=== PATIENT | male | born 1935 | race Caucasian/White ===

== ENCOUNTER → 2016-12-19 | Outpatient (CLI) | payer OTHER | LOC: FIMAGING 10:12 | PROVIDERS: ATTEND Internal Medicine | DX: Z13.820 Encounter for screening for osteoporosis (principal); M85.80 Other specified disorders of bone density and structure, unspecified site ==

== ENCOUNTER 2017-04-16 09:53 | Observation (INO) | payer OTHER ==
[2017-04-16] MEDS ORDERED: ASPIRIN 81 MG CHEWABLE TAB PO ONE (09:55)
--- NOTE | 2017-04-16 10:03 | CPEKG ---
Heart Rate: 80 RR Interval: 750 QRSD Interval: 144 QT Interval: 468 QTC Interval: 540 QRS [place]: -96 T Wave [place]: 65 EKG Severity - ABNORMAL ECG - EKG Impression: v paced Electronically Signed By: Morgan Blas 18-Apr-2017 14:39:11
[2017-04-16 10:12] LABS: PLATELET COUNT 268 10^3/uL (150-400)
--- NOTE | 2017-04-16 10:23 | EDPHY ---
H & P Stated Complaint: R CHEST PAIN Time Seen by Provider: 04/16/17 09:56 HPI/ROS: CHIEF COMPLAINT: Right-sided chest pain HISTORY OF PRESENT ILLNESS: This is an 81-year-old male presents to the emergency department reporting that for the last 2 days he has felt chest congestion with pain in the right side of his chest especially when he moves, coughs, or breathes. He has not had significant infectious symptoms, denies having a fever, runny nose, or cough prior to developing the chest discomfort. Patient denies any lightheadedness or dizziness. Denies left-sided chest discomfort. Denies abdominal pain, vomiting, or indigestion. Denies fever. Patient does have history of atrial fibrillation/ atrial flutter and has a pacemaker in place. Denies a history of coronary artery disease. Denies history of congestive heart failure. Does have hypertension. Patient recently returned from [place], arriving a week ago. He does take Pradaxa. REVIEW OF SYSTEMS: Aside from elements discussed in the HPI, a comprehensive 10-point review of systems was reviewed and is negative. PAST MEDICAL HISTORY: Atrial fibrillation, atrial flutter. Pacemaker placement. Status post cholecystectomy. Hypertension. SOCIAL HISTORY: Nonsmoker. Spent 2 months in [place] and recently returned. VITAL SIGNS Reviewed by me. GENERAL: Well-developed, well-nourished, resting comfortably in no respiratory distress. HEENT: Atraumatic. Eyes: No icterus, no injection. Mouth: moist mucous membranes. No erythema or lesions. Neck: supple with no adenopathy. LUNGS: Diminished breath sounds at the right base. Slight crackles bibasilarly. CARDIAC: Regular rate and rhythm, no rubs, murmurs or gallops. ABDOMEN: Soft, nontender, nondistended, bowel sounds normal. BACK: No CVA tenderness. EXTREMITIES: No trauma. No edema. Range of motion is normal throughout. NEURO: Alert and oriented, grossly nonfocal. SKIN: Warm and dry, no rash. PSYCHIATRIC: Normal mentation, no agitation. - Personal History Current Tetanus Diphtheria and Acellular Pertussis (TDAP): Yes - Medical/Surgical History Hx Asthma: No Hx Chronic Respiratory Disease: No Hx Diabetes: No Hx Cardiac Disease: No Hx Renal Disease: No Hx Cirrhosis: No Hx Alcoholism: No Hx HIV/AIDS: No Hx Splenectomy or Spleen Trauma: No Other PMH: PACEMAKER, FARIHA, A FIB ON BLOOD THINNERS, HTN, HIGH CHOLESTEROL - Social History Smoking Status: Former smoker Constitutional: Initial Vital Signs Temperature (C) 36.2 C 04/16/17 10:02 Heart Rate 80 04/16/17 10:02 Respiratory Rate 21 H 04/16/17 10:02 Blood Pressure 126/74 H 04/16/17 10:02 O2 Sat (%) 95 04/16/17 10:02 O2 Delivery Mode Room Air Allergies/Adverse Reactions: No Known Allergies Allergy (Unverified 10/31/10 16:21) Home Medications: Medication Instructions Recorded Acetamn/Diphenhydramine 500/25 1 each PO HS PRN 04/16/17 [Tylenol PM (*)] Alendronate Sodium [Fosamax 70 MG 70 mg PO WE@0700 04/16/17 (*)] Allopurinol [Allopurinol 300 MG 300 mg PO DAILY 04/16/17 (RX)] Atorvastatin Calcium [Lipitor 20 20 mg PO HS 04/16/17 mg (*)] DULoxetine [Cymbalta 60 MG (*)] 60 mg PO DAILY 04/16/17 Dabigatran Etexilate Mesyl 150 mg PO BID 04/16/17 [Pradaxa 150 MG (*)] Hydrochlorothiazide [HCTZ (*)] 25 mg PO DAILY 04/16/17 Labetalol HCl [Trandate 200 mg (*)] 200 mg PO BID 04/16/17 Sotalol HCl [Sotalol] 120 mg PO BID 04/16/17 Valsartan [Diovan (*)] 160 mg PO BID 04/16/17 Medical Decision Making - Diagnostics EKG Interpretation: 12-LEAD EKG: Please see the full report in [facility]. My interpretation: Ventricularly paced rhythm. Imaging Results: Impression: 1. Suspect low-grade congestive heart failure without pulmonary edema superimposed upon underlying COPD. 2. See above report for additional findings. Dictated By: Jone Ceron MD Imaging: I viewed and interpreted images myself ED Course/Re-evaluation: 81-year-old male presents to the emergency department complaining of right- sided chest discomfort. Breath sounds are diminished on the right. Chest x-ray demonstrates blunting of the costophrenic angles and concern for effusion. Right greater than left. Patient had IV placed and laboratory evaluation ordered. CBC, chemistries, troponin, LFTs, and BNP were all ordered. D-dimer also ordered. Patient has a minimally elevated white blood cell count [id number]. Influenza is negative. Urine is negative for infection. Patient has had no fever in the emergency department and no history of fever. D-dimer is negative. Patient is currently anticoagulated on Pradaxa. BNP is elevated at 3400. Troponin is negative. Plan at this point is to admit the patient to the hospital for further evaluation. I did discuss this patient's case with Radha from Cardiology. Patient had been seen approximately 3 days ago and at that time his pacemaker interrogated. EKG at that time demonstrated atrial paced pattern. While in the emergency department today, patient's EKG demonstrates ventricular pacing. Discussed my concerns with the patient that his chest discomfort may be related to development of congestive heart failure, and the need for further evaluation and testing. He is in agreement with this plan. Differential Diagnosis: After history and physical examination, the differential for chest pain was considered, including but not limited to, myocardial ischemia, acute coronary syndrome, pulmonary embolus, chest wall pain, pleural effusion, bronchitis, and pulmonary infectious causes. Consult/Admit Bed Type: Dr. Casiano, [facility] - Data Points Laboratory Results: Laboratory Results 04/16/17 10:00 04/16/17 10:00 Medications Given: Discontinued Medications Acetaminophen (Tylenol) 650 mg PO Q4HRS PRN PRN Reason: Pain, Mild/Fever, Can Take PO Stop: 10/13/17 13:10 Last Admin: 04/16/17 17:47 Dose: 650 mg Aspirin (Aspirin) 324 mg PO EDNOW ONE Stop: 04/16/17 09:56 Last Admin: 04/16/17 10:15 Dose: 324 mg Atorvastatin Calcium (Lipitor) 20 mg PO HS ELINOR Stop: 10/13/17 20:59 Last Admin: 04/16/17 20:26 Dose: 20 mg Dabigatran (Pradaxa) 150 mg PO BID ELINOR Stop: 10/13/17 20:59 Last Admin: 04/17/17 09:26 Dose: 150 mg Duloxetine HCl (Cymbalta) 60 mg PO DAILY ELINOR Stop: 10/14/17 08:59 Last Admin: 04/17/17 09:26 Dose: 60 mg Sodium Chloride (Ns) 1,000 mls @ 75 mls/hr IV CONT [facility] Stop: 04/17/17 13:14 Last Admin: 04/17/17 09:27 Dose: 1,000 mls Labetalol HCl (Trandate) 200 mg PO BID [facility] Stop: 10/13/17 20:59 Last Admin: 04/17/17 10:13 Dose: Not Given Sotalol HCl (Betapace) 120 mg PO BID [facility] Stop: 10/13/17 20:59 Last Admin: 04/17/17 10:14 Dose: Not Given Departure - Departure Disposition: [facility] Inpatient Acute Clinical Impression: Chest pain Qualifiers: Chest pain type: chest pain on breathing Qualified Code(s): R07.1 - Chest pain on breathing; R07.81 - Pleurodynia Congestive cardiac failure Qualifiers: Heart failure type: unspecified Heart failure chronicity: unspecified Qualified Code(s): I50.9 - Heart failure, unspecified Condition: Fair
[2017-04-16 10:26] LABS: INR 1.75 (0.83-1.16); PROTIME(PATIENT) 20.1 SEC (12.0-15.0)
[2017-04-16] MEDS ORDERED: ONDANSETRON 4 MG/2 ML VIAL IVP PRN (13:11)
[2017-04-16] MEDS ORDERED: ACETAMINOPHEN 325 MG TAB PO PRN (13:11)
[2017-04-16] MEDS ORDERED: ONDANSETRON DISINTEGRATING 4 MG TAB PO PRN (13:11)
--- NOTE | 2017-04-16 14:02 | PDCARCONS ---
Cardiology Consult Reason for Consult: Congestive heart failure Chief Complaint: Chest pain Requesting Physician: Hospital service History of Present Illness: 81-year-old male well known to our service history of chronic atrial fibrillation with a permanent pacemaker history of hypertension history of hyperlipidemia. Patient was seen [address] Pacheco Bell on April 10. He was doing well at that time without cardiovascular symptomatology. 2 days ago he experienced the acute onset of right-sided pleuritic/positional chest pain. The pain continued over 48 hours. It was associated with a cough. He called his primary care office and was advised to go to the emergency department he is admitted for further evaluation. The question was raised about whether this could represent heart failure. On my arrival he continues to have right-sided pleuritic chest pain. He has no significant change in his chronic shortness of breath. He does have a dry cough. He denies PND, orthopnea. He has had no palpitations syncope or near syncope. Patient denies fever at this point. He denies chills. He has had no nausea or vomiting. He denies abdominal pain. History Information - Allergies/Home Medication List Allergies/Adverse Reactions: No Known Allergies Allergy (Unverified 10/31/10 16:21) Home Medications: Acetamn/Diphenhydramine 500/25 [Tylenol PM (*)] 1 each PO HS PRN 04/16/17 [Last Taken 04/14/17] Alendronate Sodium [Fosamax 70 MG (*)] 70 mg PO WE@0700 04/16/17 [Last Taken 09/24] Allopurinol [Allopurinol 300 MG (RX)] 300 mg PO DAILY 04/16/17 [Last Taken 04/16] Atorvastatin Calcium [Lipitor 20 mg (*)] 20 mg PO HS 04/16/17 [Last Taken ] DULoxetine [Cymbalta 60 MG (*)] 60 mg PO DAILY 04/16/17 [Last Taken 04/16/17] Dabigatran Etexilate Mesyl [Pradaxa 150 MG (*)] 150 mg PO BID 04/16/17 [Last Taken 04/16/17] Hydrochlorothiazide [HCTZ (*)] 25 mg PO DAILY 04/16/17 [Last Taken 04/16/17] Labetalol HCl [Trandate 200 mg (*)] 200 mg PO BID 04/16/17 [Last Taken 04/16/17] Sotalol HCl [Sotalol] 120 mg PO BID 04/16/17 [Last Taken 04/16/17] Valsartan [Diovan (*)] 160 mg PO BID 04/16/17 [Last Taken 04/16/17] I have personally reviewed and updated: family history, medical history, social history, surgical history Past Medical History: - Past Medical History atrial fibrillation, hypertension, hyperlipidemia - Surgical History Reports: pacemaker/AICD - Family History Positive for: non-pertinent - Social History Smoking Status: Former smoker Physical Exam Physical Exam: Temp Pulse Resp BP Pulse Ox 36.4 C 80 18 109/59 L 94 04/16/17 12:40 04/16/17 12:40 04/16/17 12:40 04/16/17 12:40 04/16/17 12:40 Constitutional: no apparent distress, not in pain Eyes: PERRL, anicteric sclera Ears, Nose, Mouth, Throat: moist mucous membranes, hearing normal Cardiovascular: regular rate and rhythym, no murmur, rub, or gallop, other ( Pacer in the left subclavian fossa. No erythema or edema.), No JVD Peripheral Pulses: 1+: carotid (R), carotid (L), femoral (R), femoral (L), dorsalis-pedis (R), dorsalis-pedis (L) Respiratory: other (Decreased breath sounds right base with coarse rhonchi.) Gastrointestinal: normoactive bowel sounds, soft, non-tender abdomen, no palpable masses Genitourinary: no bladder fullness Skin: warm, normal color Musculoskeletal: full muscle strength Neurologic: AAOx3, sensation intact bilaterally, No weakness, No facial droop Psychiatric: interacting appropriately, not anxious Lymph, Heme, Immunologic: no cervical LAD, no supraclavicular LAD Lab and Imaging 04/16/17 10:00 04/16/17 10:00 WBC 14.11 10^3/uL (3.80-9.50) H 04/16/17 10:00 RBC 3.89 10^6/uL (4.40-6.38) L 04/16/17 10:00 Hgb 13.5 g/dL (13.7-17.5) L 04/16/17 10:00 Hct 38.8 % (40.0-51.0) L 04/16/17 10:00 MCV 99.7 fL (81.5-99.8) 04/16/17 10:00 MCH 34.7 pg (27.9-34.1) H 04/16/17 10:00 MCHC 34.8 g/dL (32.4-36.7) 04/16/17 10:00 RDW 13.6 % (11.5-15.2) 04/16/17 10:00 Plt Count 268 10^3/uL (150-400) 04/16/17 10:00 MPV 10.6 fL (8.7-11.7) 04/16/17 10:00 Neut % (Auto) 88.0 % (39.3-74.2) H 04/16/17 10:00 Lymph % (Auto) 5.0 % (15.0-45.0) L 04/16/17 10:00 [place] % (Auto) 6.1 % (4.5-13.0) 04/16/17 10:00 Eos % (Auto) 0.3 % (0.6-7.6) L 04/16/17 10:00 Baso % (Auto) 0.1 % (0.3-1.7) L 04/16/17 10:00 Nucleat RBC Rel Count 0.0 % (0.0-0.2) 04/16/17 10:00 Absolute Neuts (auto) 12.42 10^3/uL (1.70-6.50) H 04/16/17 10:00 Absolute Lymphs (auto) 0.70 10^3/uL (1.00-3.00) L 04/16/17 10:00 Absolute Monos (auto) 0.86 10^3/uL (0.30-0.80) H 04/16/17 10:00 Absolute Eos (auto) 0.04 10^3/uL (0.03-0.40) 04/16/17 10:00 Absolute Basos (auto) 0.02 10^3/uL (0.02-0.10) 04/16/17 10:00 Absolute Nucleated RBC 0.00 10^3/uL (0-0.01) 04/16/17 10:00 Immature Gran % 0.5 % (0.0-1.1) 04/16/17 10:00 Immature Gran # 0.07 10^3/uL (0.00-0.10) 04/16/17 10:00 PT 20.1 SEC (12.0-15.0) H 04/16/17 10:00 INR 1.75 (0.83-1.16) H 04/16/17 10:00 D-Dimer 0.42 ug/mLFEU (0.00-0.50) 04/16/17 10:00 Sodium 140 mEq/L (135-145) 04/16/17 10:00 Potassium 3.8 mEq/L (3.3-5.0) 04/16/17 10:00 Chloride 96 mEq/L (97-110) L 04/16/17 10:00 Carbon Dioxide 26 mEq/l (22-31) 04/16/17 10:00 Anion Gap 18 mEq/L (8-16) H 04/16/17 10:00 BUN 22 mg/dL (7-23) 04/16/17 10:00 Creatinine 1.4 mg/dL (0.7-1.3) H 04/16/17 10:00 Estimated GFR 49 04/16/17 10:00 Glucose 196 mg/dL (70-100) H 04/16/17 10:00 Calcium 9.0 mg/dL (8.5-10.4) 04/16/17 10:00 Total Bilirubin 3.7 mg/dL (0.1-1.4) H 04/16/17 10:00 Conjugated Bilirubin 1.0 mg/dL (0.0-0.5) H 04/16/17 10:00 Unconjugated Bilirubin 2.7 mg/dL (0.0-1.1) H 04/16/17 10:00 AST 32 IU/L (17-59) 04/16/17 10:00 ALT 36 IU/L (21-72) 04/16/17 10:00 Alkaline Phosphatase 97 IU/L (38-126) 04/16/17 10:00 Troponin I 0.015 ng/mL (0.000-0.034) 04/16/17 10:00 NT-Pro-B Natriuret Pep 3150 pg/mL (0-450) H 04/16/17 10:00 Total Protein 7.0 g/dL (6.3-8.2) 04/16/17 10:00 Albumin 3.9 g/dL (3.5-5.0) 04/16/17 10:00 Influenza A,B Rapid NEGATIVE FOR FLU (NEGATIVE) 04/16/17 10:38 Visualized and Interpreted Chest x-ray results: Yes Chest X-ray Interpretation: other (Chest x-ray reveals normal cardiac silhouette. Dual-chamber pacemaker in place. Pleural effusion blunting the right costophrenic angle.) EKG Interpretation: Positive for: other (Atrial fibrillation with ventricular pacing.) A/P Assessment: Assessment: 81-year-old male history of atrial fibrillation, well rate controlled. Appropriately anticoagulated, history of hypertension now normotensive, history of hyperlipidemia on medical therapy presenting with 2 days of right pleuritic chest pain associated with a new pleural effusion on the right side and dry cough. There is no evidence of congestive heart failure without PND orthopnea. He had echocardiogram in 2007 which revealed normal LV systolic function without valvular abnormalities. He did have diastolic filling abnormalities at that time. His exam today shows no JVP. Vital signs are stable. I do not think his right-sided pain represents an acute coronary syndrome. His current cardiac medications are stable and I would make no changes. Differential diagnosis for his pleuritic chest pain are quite broad and may represent a pneumonic process especially with his pleural effusion. Await echocardiogram. Plan: Review echocardiogram. Clinical follow-up. Past Medical History PMH: - Personal History Current Tetanus Diphtheria and Acellular Pertussis (TDAP): Yes - Medical/Surgical History Hx Asthma: No Hx Chronic Respiratory Disease: No Hx Cardiac Disease: No Hx Diabetes: No Hx Renal Disease: No Hx Alcoholism: No Hx Cirrhosis: No Hx HIV/AIDS: No Hx Splenectomy or Spleen Trauma: No Other PMH: PACEMAKER, FARIHA, A FIB ON BLOOD THINNERS, HTN, HIGH CHOLESTEROL - Social History Smoking Status: Former smoker Additional Social History: Review of Systems Review of Systems: - Review of Systems Constitutional: denies: chills, fever, malaise EENTM: no symptoms reported Respiratory: cough, shortness of breath, hurts to breath. denies: wheezing Cardiac: denies: edema, irregular heart rate, lightheadedness, palpitations, syncope Gastrointestinal/Abdominal: no symptoms reported Genitourinary: no symptoms Musculoskelatal: no symptoms Skin: no symptoms Neurological: no symptoms Hematologic/Lymphatic: no symptoms reported Immunologic/allergic: no symptoms reported
--- NOTE | 2017-04-16 14:30 | ECHO ---
[email or web address] [address] [address] Main: [phone] Fax: Transthoracic Echocardiogram Name: JUAN OJSE GRIGGS MR#: [id number] Study Date: 04/16/2017 Study Time: 01:58 PM Date of : 1935 Age: 81 year(s) Height: 177.8 cm (70 in.) Weight: 87.09 kg (192 lb.) BSA: 2.05 m2 Gender: Male Examination: Echo Indication: Dyspnea/mild edema/ hx pacer Image Quality: Contrast: Requested by: Whitley Yen BP: 109 mmHg/59 mmHg Heart Rate: Rhythm: Indication: Dyspnea/mild edema/ hx pacer Procedure Staff Career Development Coordinator/Teacher: Mason Rudd TYLER Reading Physician: David Patrick Requesting Provider: Conclusions: No pericardial effusion. Preserved left ventricular systolic function with evidence of ventricular pacing. Ejection fraction 71%. No significant valvular abnormalities by Doppler 2 dimensional study. Right ventricular systolic pressure of 45 mmHg Tissue Doppler does not suggest elevated left ventricular filling pressures. Measurements: Chambers Valvular Assessment AV/MV Valvular Assessment TV/PV Normal Normal Normal Name Value Range Name Value Range Name Value Range Ao Cort[place] (MM): 3.3 cm (2.2 cm-3.7 AV Vmax: 1.43 m/s (1 m/s-1.7 TR Vmax: 3.18 mm/s ( - ) cm) m/s) TR PGmax: 40 mmHg ( - ) IVSd (2D): 1.1 cm (0.6 cm-1.1 AV maxP mmHg ( - ) syst. PAP: 45 mmHg ( - ) cm) LVOT Vmax: 0.80 m/s (0.7 m/s-1.1 PV Vmax: 0.91 m/s (0.6 m/s-0.9 LVDd (2D): 4.0 cm (4.2 cm-5.9 m/s) m/s) cm) MV E Vmax: 0.92 m/s ( - ) PV PGmax: 3 mmHg ( - ) LVDs (2D): 2.4 cm (2.1 cm-4 cm) LVPWd (2D): 1.0 cm (0.6 cm-1 cm) LVEF (2D): 71 (>=54 %) Continued Measurements: Chambers Valvular Assessment AV/MV Valvular Assessment TV/PV Name Value Name Value Name Value LADs Lon.8 cm MV E' Septal: 0.10 m/s CVP (est.): 5 mmHg LA Area: 20.6 cm2 MV E/E' Septal: 8.70 LA Volume: 60 ml MV E/E' Lateral: 5.70 LA Volume Index: 29.3 ml/m2 Patient: JUAN JOSE GRIGGS Study Date: 04/16/2017 Page 1 of 2 01:58 PM Findings: Left Ventricle: Normal size left ventricle. No LV hypertrophy. Normal global systolic LV function. EF is 71 %. Right Ventricle: Normal size right ventricle. There is a pacemaker lead noted in the right ventricle. Left Atrium: The left atrium is normal in size. Right Atrium: The right atrium is normal in size. Mitral Valve: The mitral valve is normal in appearance and function. Trivial mitral valve regurgitation. Aortic Valve: The aortic valve is normal in appearance and function. Tricuspid Valve: The tricuspid valve is normal in appearance and function. Trivial tricuspid valve regurgitation. Pulmonic Valve: The pulmonic valve is normal in appearance and function. Aorta: The aorta is normal. Pericardium: No pericardial effusion. (No Signature Object) Patient: JUAN JOSE GRIGGS Study Date: 04/16/2017 Page 2 of 2 01:58 PM [id number]
--- NOTE | 2017-04-16 15:22 | GHP ---
[f rep st] HISTORY AND PHYSICAL DATE OF ADMISSION: 04/16/2017 CHIEF COMPLAINT: Right-sided chest pain. HISTORY OF PRESENT ILLNESS: A pleasant 81-year-old male with history of atrial fibrillation on AC, hypertension, and hyperlipidemia, followed by Dr. Bell, who is presenting with right-sided chest pain. He said this developed 3 days ago. He describes it as pleuritic in nature and worse with a cough or deep breath. He has had some shortness of breath with walking. Denies any lower extremity edema, pillow orthopnea, or PND. Denies lower extremity or abdominal swelling. He was evaluated by Dr. Bell on April 10, and everything looked well at that time. He traveled to [place] and returned a week ago. Had normal Lexiscan in 2016. REVIEW OF SYSTEMS: I completed a 10-point review of systems; negative except as noted in HPI. PAST MEDICAL HISTORY: Pacemaker, chronic atrial fibrillation, hypertension, hyperlipidemia, BPH, colon polyp. PAST SURGICAL HISTORY: Cholecystectomy, vertebroplasty, pacemaker in 2010, nasal reconstruction, tonsillectomy, and TURP. SOCIAL HISTORY: Lives in [place]. Had smoked a pipe 50 years ago. Drinks 1 glass of wine a week. No illicit's ALLERGIES: None. HOME MEDICATIONS: Labetalol 200 mg twice daily, atorvastatin 20 mg q.h.s., allopurinol 300 mg daily, Tylenol PM, Diovan 160 mg b.i.d., sotalol 120 mg b.i.d., hydrochlorothiazide 25 mg daily, Pradaxa 150 mg b.i.d., Cymbalta 60 mg daily, Fosamax once weekly. PHYSICAL EXAMINATION: VITAL SIGNS: Temperature 36.4, blood pressure 109/59, heart rate in the 80s, respirations 16, and 94% in room air. GENERAL: A well- appearing male sitting up in bed in no acute distress. HEENT: PERRLA. EOMI. Oropharynx clear. CV: Regular rate and rhythm. Do not appreciate a murmur, gallop, or rubs. LUNGS: Clear. No wheezing or crackles. ABDOMEN: Soft, nontender, nondistended. Positive bowel sounds. : No Munoz. MUSCULOSKELETAL: 5/5 upper and lower extremity strength. NEURO: 2 through 12 intact. PSYCH: Alert and oriented x3. LABORATORY DATA: WBCs 14, hemoglobin 13, hematocrit 38, platelets 268. INR is 1.7, PT 28. D-dimer 0.42. Sodium 140, potassium 3.8, chloride 96, anion gap 18 , creatinine is 1.4 (baseline is 1.1), glucose is 196. Conjugated bilirubin 1, unconjugated 2.7, AST is 32, ALT 36. Troponin 0.015. BNP is 3150. Albumin is 3.9. Negative influenza. EKG: Personally reviewed by me. AFib, V-paced. Chest x-ray: Minimal blunting of bilateral costophrenic angles. ASSESSMENT AND PLAN: 1. Right-sided chest pain: Differential includes pulmonary embolus versus acute coronary syndrome versus infection. He denies any infectious symptoms. No overt opacity on CXR and afebrile. D-dimer is negative for thrombosis. Initial troponin and EKG negative for ischemia. Repeat trop and echocardiogram. 2. Dyspnea: Stable in room air. Minimal pleural effusion on x-ray. Does have an elevated BNP. Echocardiogram is pending. 3. Atrial fibrillation: He is on sotalol and Pradaxa. Will continue these. 4. Hypertension: Well controlled on home medications, labetalol. 5. Hyperlipidemia: Continue statins. 6. Acute kidney injury: Creatinine is elevated at 1.4, baseline is 1.1. Will hold hydrochlorothiazide as well as losartan and repeat in the morning. Urine lytes pending. 7. Depression:n duloxetine. 8. Leukocytosis: afebrile. C/o dry cough. Fly negative, but will check full resp panel. Denies other infectious symptoms. 9. Diet: Regular. 10. Deep venous thrombosis prophylaxis: On Pradaxa. DISPOSITION: Patient warrants observation admission given chest pain and dyspnea, warranting further evaluation, repeat laboratories, and telemetry. /[id number]/MODL MTDD
[2017-04-16] MEDS: LABETALOL HCL 200 MG TAB PO SCH (20:26)
[2017-04-16] MEDS: DABIGATRAN ETEXILATE MESYL 150 MG CAP PO SCH (20:26)
[2017-04-16] MEDS: SOTALOL HCL 80 MG TAB PO SCH (20:26)
[2017-04-16] MEDS ORDERED: ATORVASTATIN CALCIUM 20 MG TAB PO SCH (21:00)
[2017-04-17] MEDS ORDERED: NS 1,000 ML IV SCH (08:15)
--- NOTE | 2017-04-17 08:16 | HOSPPROG ---
Hospitalist Progress Note Assessment/Plan: #Dyspnea: -no e/o volume overload though mildly elevated BNP. Echo preserved EF, no valvular abnormalities -mod pulm HTN -negative dimer, resp culture and no e/o PNA -min effusions. No protein on UA. #ELISHA: Cr up to 1.4 (BL 1.0). Urine lytes c/w pre-renal. Hold diuretic, Sartan. Give gentle IVFs #Mild hypotension: improved with gentle fluids. Hold sartan, HCTZ until repeat bmp #Right-chest pain: does not appear cardiac. Worse with positioning, cough. No e/ o infection. Can trial APAP (NSAID would be best, but can't with CKD) -BR elevated; Abd U/S only with hemangioma #Diet: regular #Disp: DC today Subjective: still have right chest pain when rolls over or coughs Objective: Vital Signs Temp Pulse Resp BP Pulse Ox 36.7 C 80 12 105/63 95 04/17/17 07:21 04/17/17 07:21 04/17/17 07:21 04/17/17 07:21 04/17/17 07:21 Microbiology 04/16/17 18:15 Respiratory Panel (PCR) - Final Nasal, Sinus - Swab No Organism Detected Laboratory Results 04/17/17 03:43 04/17/17 03:43 04/16/17 04/17/17 04/18/17 05:59 05:59 05:59 Intake Total 550 Balance 550 PT 20.1 SEC (12.0-15.0) H 04/16/17 10:00 INR 1.75 (0.83-1.16) H 04/16/17 10:00 - Physical Exam Constitutional: no apparent distress Eyes: PERRL Ears, Nose, Mouth, Throat: moist mucous membranes, hearing normal Cardiovascular: regular rate and rhythym, no murmur, rub, or gallop, other (no reproducible chest pain), No edema Respiratory: no respiratory distress Gastrointestinal: normoactive bowel sounds Genitourinary: no bladder fullness Skin: warm Musculoskeletal: full muscle strength Neurologic: AAOx3 Psychiatric: interacting appropriately ICD10 Worksheet Patient Problems: Problems Problem Status Onset Chest pain Acute - ICD10 Problem Qualifiers (1) Chest pain
[2017-04-17] MEDS ORDERED: DULoxetine 60 MG CAP PO SCH (09:00)
[2017-04-17] MEDS: DABIGATRAN ETEXILATE MESYL 150 MG CAP PO SCH (09:26)
[2017-04-17] MEDS: LABETALOL HCL 200 MG TAB PO SCH (10:13)
[2017-04-17] MEDS: SOTALOL HCL 80 MG TAB PO SCH (10:14)
--- NOTE | 2017-04-17 11:56 | ASMTCASEMG ---
Living Arrangements What is your living Answers: With Spouse arrangement? Who do you live with? Type Of Residence What kind of residence do Answers: House you live in? Discharge Plan Comments Coordination Status Comments Notes: Discussed pts case in morning rounds. Pt is a 81 y/o man admitted for right sided chest pain. An EKG has been ordered. No therapies ordered at this time. Pt will most likely d/c independent when medically stable. CM available for changes. Plan: Independent Date Signed: 04/17/2017 11:55 AM Electronically Signed By:BRAD Shi
[2017-04-17 15:52] VITALS: BP 127/68; PULSE 84; RESP 16; TEMP 98.7; O2SAT 94
--- NOTE | 2017-04-17 20:38 | GDS ---
[f rep st] DISCHARGE SUMMARY DISCHARGE DIAGNOSES: 1. Dyspnea. 2. Right-sided chest pain. 3. Acute kidney injury. 4. Mild hypotension. 5. Newly diagnosed moderate pulmonary hypertension. HISTORY OF PRESENT ILLNESS: An 81-year-old male with history of atrial fibrillation on AC, hypertens ion hyperlipidemia, followed by Dr. Bell, presenting with right-sided chest pain. This started 3 days ago, and described it as pleuritic in nature, worse with cough or deep breath. He also hurts w ith rolling over. He has noticed dyspnea with walking. No lower extremity edema, pillow orthopnea, or PND. He was evaluated by Dr. Bell on April 10 for his annual cardiac evaluation, and everyt jim looked well. He had traveled to [place] and returned a week ago. HOSPITAL COURSE BY PROBLEM: 1. Right-sided chest pain: Suspect musculoskeletal. This was not consistent with ACS, and had nega tive troponins and EKG. He was evaluated by Cardiology, who agreed. D-dimer was negative, so low muniz spicion for a PE. He was noted to have hyperbilirubinemia, but ultrasound was reassuring, showing on ly hemangioma. Recommend Tylenol as needed and to follow up further with his PCP. 2. Dyspnea: He had no evidence of volume overload. Echocardiogram showed no valvular abnormalities . It did show moderate pulmonary hypertension. He has been stable on room air. 3. Atrial fibrillation: Rate controlled on sotalol. Continue Pradaxa. 4. Hypotension: Held his valsartan and diuretic, as soft blood pressures and elevated creatinine. This improved with mild hydration. Advised him to restart his labetalol tomorrow. Hold valsartan an d diuretic until he gets a repeat BMP. 5. Hyperlipidemia: Statin. 6. Acute kidney injury: Creatinine elevated at 1.4, baseline is 1.1. Urine lytes were consistent w ith prerenal. I gave him gentle IV fluids with improvement of blood pressure. Want a repeat BMP, as creatinine is still 1.4 today. 7. Depression: Duloxetine. 8. Leukocytosis: Elevated at 14. However, has negative infectious evaluation including a UA and ch est x-ray. He denies any other infectious symptoms. Respiratory panel was negative as well. 9. Hyperbilirubinemia: Again, he should follow up with his PCP for further evaluation. He had a ne gative ultrasound here, except for hemangioma. DISPOSITION: The patient is stable for discharge home. MEDICATIONS: Hold valsartan, hydrochlorothiazide until repeat BMP. Restart labetalol tomorrow. FOLLOWUP: 1. PCP. 2. BMP. /[id number]/MODL
== END 2017-04-17 18:57 | disposition home or self-care (01) ==
LOC: CED 09:53 → CEDHOLD 11:02 → F2W 12:26
PROVIDERS: ADMIT Hospitalist; ATTEND Hospitalist
DX: R06.00 Dyspnea, unspecified (principal); R07.9 Chest pain, unspecified; N17.9 Acute kidney failure, unspecified; I95.9 Hypotension, unspecified; I27.20 Pulmonary hypertension, unspecified; E78.5 Hyperlipidemia, unspecified; Z95.0 Presence of cardiac pacemaker
CPT/HCPCS: 71046; 76705; 93005; 93306; G0378; 80048-PO; 80076-PO; 83880-PO; 84484-PO; 85025-PO; 85378-PO; 85610-PO; 87400-PO

== ENCOUNTER 2017-04-22 12:56 | Inpatient (IN) | payer OTHER ==
--- NOTE | 2017-04-22 13:24 | CPEKG ---
Heart Rate: 84 RR Interval: 714 QRSD Interval: 114 QT Interval: 416 QTC Interval: 492 QRS Mclean: -40 T Wave Mclean: 88 EKG Severity - ABNORMAL ECG - EKG Impression: AFIB/FLUT AND V-PACED COMPLEXES EKG Impression: INCOMPLETE LEFT BUNDLE BRANCH BLOCK Electronically Signed By: Carson Samson 22-Apr-2017 13:41:41
--- NOTE | 2017-04-22 13:26 | EDPHY ---
H & P Stated Complaint: sob, cough Time Seen by Provider: 04/22/17 13:20 HPI/ROS: CHIEF COMPLAINT: Worsening dyspnea HISTORY OF PRESENT ILLNESS: The patient presents to the ED with complaints of worsening dyspnea. He was hospitalized approximately a week ago for shortness of breath and chest pain. During that hospitalization he was evaluated by Cardiology and felt to be experiencing musculoskeletal chest pain. The patient does have a history of atrial fibrillation and is chronically anticoagulated with Coumadin. The patient did have a history of a prior cholecystectomy. He was noted to have a slightly elevated bilirubin during that hospitalization. He did undergo a right upper quadrant ultrasound which demonstrated no significant findings in his post cholecystectomy state. The patient complains of general malaise. He has had a wet occasional cough. He denies any complaints of diarrhea or vomiting. REVIEW OF SYSTEMS: A comprehensive 10 point review of systems is otherwise negative aside from elements mentioned in the history of present illness. Source: Patient Exam Limitations: No limitations - Personal History Current Tetanus/Diphtheria Vaccine: Yes Current Tetanus Diphtheria and Acellular Pertussis (TDAP): Yes - Medical/Surgical History Hx Asthma: No Hx Chronic Respiratory Disease: No Hx Diabetes: No Hx Cardiac Disease: Yes Hx Renal Disease: Yes Hx Cirrhosis: No Hx Alcoholism: No Hx HIV/AIDS: No Hx Splenectomy or Spleen Trauma: No Other PMH: PACEMAKER, FARIHA, A FIB ON BLOOD THINNERS, HTN, HIGH CHOLESTEROL - Social History Smoking Status: Former smoker - Physical Exam Exam: General Appearance: Alert, no acute distress Eyes: Scleral icterus present ENT, Mouth: Mucous membranes moist Respiratory: Rhonchorous breath sounds right lung base Cardiovascular: Regular rate and rhythm Gastrointestinal: Abdomen is soft and nontender, no masses, bowel sounds normal Neurological: A&O, normal motor function, normal sensory exam, normal cranial nerves Skin: Skin appears slightly jaundice Musculoskeletal: Neck is supple nontender Extremities: symmetrical, full range of motion Constitutional: Initial Vital Signs Temperature (C) 37.1 C 04/22/17 13:07 Heart Rate 83 04/22/17 13:07 Respiratory Rate 16 04/22/17 13:07 Blood Pressure 105/72 04/22/17 13:07 O2 Sat (%) 91 L 04/22/17 13:07 O2 Delivery Mode Nasal Cannula O2 (L/minute) 2 Allergies/Adverse Reactions: No Known Allergies Allergy (Unverified 04/22/17 13:05) Home Medications: Medication Instructions Recorded Acetamn/Diphenhydramine 500/25 1 each PO HS PRN 04/16/17 [Tylenol PM (*)] Alendronate Sodium [Fosamax 70 MG 70 mg PO WE@0700 04/16/17 (*)] Allopurinol [Allopurinol 300 MG 300 mg PO DAILY 04/16/17 (RX)] Atorvastatin Calcium [Lipitor 20 20 mg PO HS 04/16/17 mg (*)] DULoxetine [Cymbalta 60 MG (*)] 60 mg PO DAILY 04/16/17 Dabigatran Etexilate Mesyl 150 mg PO BID 04/16/17 [Pradaxa 150 MG (*)] Labetalol HCl [Trandate 200 mg (*)] 200 mg PO BID 04/16/17 Sotalol HCl [Sotalol] 120 mg PO BID 04/16/17 Medical Decision Making - Diagnostics EKG Interpretation: EKG: Complete interpretation has been separately recorded in the [facility] archive. Summary impression: Atrial fibrillation, PVCs, rate 84 Imaging Results: Imaging Impressions Chest X-Ray 04/22/17 13:26 Impression: New large right pleural effusion (with possible loculation at the right apex) and dense basilar consolidation (compressive atelectasis versus lobar pneumonia). ED Course/Re-evaluation: The patient was recently admitted to the hospital for evaluation of right-sided chest pain and dyspnea. At that point time he had a fairly extensive workup. He was seen by Cardiology and the hospitalist service and was felt to be having musculoskeletal chest pain. The patient is currently anticoagulated for chronic atrial fibrillation with Pradaxa. The patient presents with ongoing dyspnea and the development of jaundice. Chest x-ray does demonstrate the development of a new right pleural effusion. Given the patient's elevated liver function test a CT scan of the abdomen pelvis has been ordered. The patient will require admission to the hospital for further evaluation of his condition. Consultation is made with Dr. Carlos Elkins from the hospitalist service. CT scan of the abdomen pelvis does not suggest an obvious source causing obstructive jaundice. The patient will be admitted for a pleurocentesis and further evaluation of his symptoms. I will defer to the hospitalist service for consulting Gastroenterology. Differential Diagnosis: Differential diagnosis considered includes influenza, sepsis, pneumonia, heart failure, biliary obstruction - Data Points Laboratory Results: Laboratory Results 04/22/17 13:13 04/22/17 13:13 04/22/17 04/22/17 13:13 13:13 WBC 12.46 10^3/uL H 10^3/uL (3.80-9.50) RBC 3.15 10^6/uL L 10^6/uL (4.40-6.38) Hgb 10.9 g/dL L g/dL (13.7-17.5) Hct 31.3 % L % (40.0-51.0) MCV 99.4 fL fL (81.5-99.8) MCH 34.6 pg H pg (27.9-34.1) MCHC 34.8 g/dL g/dL (32.4-36.7) RDW 13.7 % % (11.5-15.2) Plt Count 328 10^3/uL 10^3/uL (150-400) MPV 10.2 fL fL (8.7-11.7) Neut % (Auto) 86.7 % H % (39.3-74.2) Lymph % (Auto) 4.2 % L % (15.0-45.0) [place] % (Auto) 7.6 % % (4.5-13.0) Eos % (Auto) 0.7 % % (0.6-7.6) Baso % (Auto) 0.1 % L % (0.3-1.7) Nucleat RBC Rel Count 0.0 % % (0.0-0.2) Absolute Neuts (auto) 10.80 10^3/uL H 10^3/uL (1.70-6.50) Absolute Lymphs (auto) 0.52 10^3/uL L 10^3/uL (1.00-3.00) Absolute Monos (auto) 0.95 10^3/uL H 10^3/uL (0.30-0.80) Absolute Eos (auto) 0.09 10^3/uL 10^3/uL (0.03-0.40) Absolute Basos (auto) 0.01 10^3/uL L 10^3/uL (0.02-0.10) Absolute Nucleated RBC 0.00 10^3/uL 10^3/uL (0-0.01) Immature Gran % 0.7 % % (0.0-1.1) Immature Gran # 0.09 10^3/uL 10^3/uL (0.00-0.10) Sodium 135 mEq/L mEq/L (135-145) Potassium 4.4 mEq/L mEq/L (3.5-5.2) Chloride 98 mEq/L mEq/L (97-110) Carbon Dioxide 27 mEq/l mEq/l (22-31) Anion Gap 10 mEq/L mEq/L (8-16) BUN 24 mg/dL H mg/dL (7-23) Creatinine 1.3 mg/dL mg/dL (0.7-1.3) Estimated GFR 53 Glucose 135 mg/dL H mg/dL (70-100) Calcium 8.8 mg/dL mg/dL (8.5-10.4) Total Bilirubin 5.0 mg/dL H mg/dL (0.1-1.4) Conjugated Bilirubin 3.5 mg/dL H mg/dL (0.0-0.5) Unconjugated Bilirubin 1.5 mg/dL H mg/dL (0.0-1.1) AST 65 IU/L H IU/L (17-59) ALT 80 IU/L H IU/L (21-72) Alkaline Phosphatase 762 IU/L H IU/L (38-126) Troponin I < 0.012 ng/mL ng/mL (0.000-0.034) Total Protein 6.8 g/dL g/dL (6.3-8.2) Albumin 3.6 g/dL g/dL (3.5-5.0) Lipase 116 IU/L IU/L (23-300) Departure - Departure Disposition: [facility] Inpatient Acute Clinical Impression: Pleural effusion, Abnormal liver function test, Dyspnea Condition: Good
[2017-04-22 13:43] LABS: PLATELET COUNT 328 10^3/uL (150-400)
[2017-04-22] MEDS ORDERED: IOPAMIDOL (ISOVUE-300) 100 ML BTL ONE ×2 (14:12→14:14)
[2017-04-22] MEDS ORDERED: ONDANSETRON 4 MG/2 ML VIAL IVP PRN (18:59)
[2017-04-22] MEDS ORDERED: oxyCODONE IR 5 MG TAB PO PRN (18:59)
[2017-04-22] MEDS ORDERED: ONDANSETRON DISINTEGRATING 4 MG TAB PO PRN (18:59)
[2017-04-22] MEDS ORDERED: ACETAMN/DIPHENHYDRAMINE 500/25MG TAB PO PRN (19:08)
--- NOTE | 2017-04-22 19:40 | GHP ---
[f rep st] HISTORY AND PHYSICAL DATE OF ADMISSION: 04/22/2017 CHIEF COMPLAINT: Shortness of breath. HISTORY OF PRESENT ILLNESS: This is an 81-year-old man who was discharged 5 days prior after being w orked up for right-sided chest pain. Thought to be musculoskeletal in origin after Cardiology consul tation. He was discharged home, and felt quite poorly for the past few days. He has had worsening s hortness of breath. He feels as though he needs to cough although he does not really have any signif icant sputum production. He has not had any significant swelling. He denies any abdominal pain. On his last admission, he had elevated LFTs. Had an ultrasound which showed him to be post cholecystec ivette with no other significant findings. He has atrial fibrillation. Has a pacemaker in place. PAST MEDICAL/SURGICAL HISTORY: 1. Atrial fibrillation with a pacemaker. He is anticoagulated on Pradaxa. 2. Hypertension. 3. Hyperlipidemia. 4. BPH. 5. Cholecystectomy. 6. Vertebroplasty. 7. Nasal reconstruction. 8. Tonsillectomy. 9. TURP. MEDICATIONS: Please see medication reconciliation. ALLERGIES: No known drug allergies. FAMILY HISTORY: Reviewed and noncontributory. SOCIAL HISTORY: He drinks a very rare glass of wine. Does not smoke. REVIEW OF SYSTEMS: Ten-point review of systems is conducted and is negative except per HPI. PHYSICAL EXAMINATION: VITAL SIGNS: Blood pressure 126/70, heart rate 80, respiration rate 16, satur ating 97% on room air. Temperature is 37.4. GENERAL: The patient is a pleasant man who is resting comfortably. In no acute distress. HEENT: Shows him to be normocephalic, atraumatic. CARDIOVASCUL AR: Shows him to be irregularly irregular. There are no murmurs, rubs, or gallops. PULMONARY: Renate ws diminished right-sided basilar breath sounds. ABDOMEN: Soft, nontender, nondistended. He has no Monroy sign. SKIN: Shows no rash. : Shows no Munoz. NEUROLOGIC: Shows him to be alert and or iented x3. He is moving all extremities. PSYCHIATRIC: Shows normal mood and affect. LABORATORY DATA: White count is 12.4, 87% neutrophils, hemoglobin is 10.9. Bilirubin is 5.0, conjug ated 3.5. Troponin is negative. Alkaline phosphatase is 762. Urinalysis positive for bilirubin. DATA: 1. Discussed with Dr. Samson. Will admit for further workup. 2. Abdominal CT shows question of mass in the pancreatic head. There is question of an empyema on t he right lung. No biliary obstruction with normal common bile duct. 3. Chest x-ray, which I personally viewed and interpreted, shows right-sided pleural effusion. 4. EKG, which I personally viewed and interpreted, shows intermittently paced rhythm. Underlying rh ythm is atrial fibrillation. IMPRESSION AND PLAN: 1. Right-sided pleural effusion: Will need a thoracentesis. Discussed that he may need a chest tub e though I think trying a thoracentesis first is reasonable. I have not ordered this since he is on Pradaxa, and I do not believe he is decompensating. Thus, I think we should wait until his anticoagu lation is worn off. He will need labs sent including cytology as well as cultures. He does not appe ar toxic, thus I am less concerned that this is an empyema. I will not start him on empiric antibiot ics at this point though I would have a low threshold to do this. He is currently resting comfortabl y on room air. 2. Concern for pancreatic head mass: CT with questionable findings. He has markedly elevated alkal ine phosphatase and elevated bilirubin. He has a pacemaker. Thus, we cannot get an MRI or MRCP of h is abdomen. Would consult GI for question of endoscopic ultrasound with biopsy if there is a pancrea tic head mass. I have not done this as we will need to wait for Pradaxa to wear off before consideri ng this procedure. They will need to be consulted tomorrow. I have ordered a CEA as well as a CA-19 -9. He has a history of multiple colon polyps. He is screened with colonoscopies every 5 years. 3. Atrial fibrillation with pacemaker: Continue his sotalol, labetalol, hold Pradaxa. 4. Hypertension: Hydrochlorothiazide and Diovan were held on his last discharge, I will continue to hold these as he is not significantly hypertensive. 5. Code status: He would like to be full code. We would not want heroic, significant life-prolongi ng measures. 6. Venous thromboembolism risk: He is high risk, we will hold off on pharmacologic prophylaxis unti l after his procedures. /[id number]/MODL
[2017-04-22] MEDS: ATORVASTATIN CALCIUM 20 MG TAB PO SCH (20:13)
[2017-04-22] MEDS: LABETALOL HCL 200 MG TAB PO SCH (20:13)
[2017-04-22] MEDS: SOTALOL HCL 80 MG TAB PO SCH (20:13)
[2017-04-22] MEDS: ALLOPURINOL 300 MG TAB PO SCH (20:13)
[2017-04-23 04:38] LABS: PLATELET COUNT 345 10^3/uL (150-400)
[2017-04-23] MEDS: LABETALOL HCL 200 MG TAB PO SCH ×2 (09:49→20:46)
[2017-04-23] MEDS: SOTALOL HCL 80 MG TAB PO SCH ×2 (09:49→20:45)
[2017-04-23] MEDS: DULoxetine 60 MG CAP PO SCH (09:50)
[2017-04-23] MEDS ORDERED: IOPAMIDOL (ISOVUE-300) 100 ML BTL ONE (10:15)
--- NOTE | 2017-04-23 11:24 | PDMN ---
Medical Necessity Medical necessity: Pt meets IP criteria per MD; est los >2 mn for eval/tx of R- sided pleural effusion & concern for pancreatic head mass; admit for further workup/monitoring, thoracentesis/possible chest tube placement & GI consult; hx AFIB w/pacer on AC & HTN; per H&P & order 04/22/17
[2017-04-23 12:24] LABS: INR 1.71 (0.83-1.16); PROTIME(PATIENT) 20.2 SEC (12.0-15.0)
--- NOTE | 2017-04-23 14:59 | ASMTCMCOM ---
CM Note CM Note Notes: 04/23/2017 Case Management Note Met w/pt and this morning during rounds. Pt admitted for pleural effusions. There are currently no PT or OT evals ordered. There are no further case management d/c needs identified at this time. Case Management d/c poc: anticipating independent with follow up as directed. Case Management to follow on daily rounds. Date Signed: 04/23/2017 02:35 PM Electronically Signed By:Sherron Saenz RN
--- NOTE | 2017-04-23 17:17 | HOSPPROG ---
Hospitalist Progress Note Assessment/Plan: * Loculated pleural effusion - rapidly accumulated over 1 week -thoracentesis in am when off Pradaxa 48 hours -no signs of sepsis - hold off on abx * Pancreatic mass with elevated LFT -d/w Dr. Chowdhury - ERCP/EUS with tomorrow 4:00pm -CEA, Ca 19-9 normal * Afib/PCM -sotalol, labetalol -holding Pradaxa Subjective: No complaints. SOB resolved on O2 Objective: Vital Signs Temp Pulse Resp BP Pulse Ox 36.8 C 80 14 102/60 96 04/23/17 15:50 04/23/17 15:50 04/23/17 15:50 04/23/17 15:50 04/23/17 15:50 Laboratory Results 04/23/17 03:06 04/23/17 03:06 04/22/17 04/23/17 04/24/17 05:59 05:59 05:59 Intake Total 350 Balance 350 PT 20.2 SEC (12.0-15.0) H 04/23/17 12:05 INR 1.71 (0.83-1.16) H 04/23/17 12:05 CT chest - loculated effusion, no mass - Physical Exam Constitutional: no apparent distress, appears nourished, not in pain Cardiovascular: regular rate and rhythym, no murmur, rub, or gallop Respiratory: no respiratory distress, no rales or rhonchi, clear to auscultation , reduced air movement, dullness to percussion Gastrointestinal: normoactive bowel sounds, soft, non-tender abdomen, no palpable masses Skin: no rashes or abrasions, no fluctuance, no induration Neurologic: AAOx3, sensation intact bilaterally Psychiatric: interacting appropriately, not anxious, not encephalopathic, thought process linear ICD10 Worksheet Patient Problems: Problems Problem Status Onset Abnormal liver function test Acute Dyspnea Acute Pleural effusion Acute Chest pain Acute Congestive cardiac failure Acute
[2017-04-23] MEDS: ATORVASTATIN CALCIUM 20 MG TAB PO SCH (20:45)
[2017-04-23] MEDS: ALLOPURINOL 300 MG TAB PO SCH (20:45)
--- NOTE | 2017-04-23 21:15 | GCON ---
[f rep st] CONSULTATION REFERRING PHYSICIAN: Nayeli Can MD CHIEF COMPLAINT: An 81-year-old male with abnormal liver function tests and pancreatic cysts. HISTORY OF PRESENT ILLNESS: I have been asked to see in consultation this 81- year-old gentleman by Dr. Nayeli Can, for evaluation of abnormal liver function tests and abnormal imaging of the pancreas. The patient was admitted to the hospital with right-sided chest pain. He has had some shortness of breath. He has been noted to have abnormal liver function tests. He is status post cholecystectomy. He was found to have a large fluid collection in the right chest, felt to be a loculated right pleural effusion, questionable infectious. On chest CT also had extensive atelectasis in the right lung with near total atelectasis of the right lower lobe. He also had a CT scan of his abdomen that also showed a multi lobulated pleural effusion in the right lung. He had a suspected hemangioma of the central liver. There was no evidence of biliary obstruction. The common bile duct measured 4-5 mm. He did have a small indeterminate lesion in the posterior aspect of the head of the pancreas. Suggests that this may be further evaluated with ERCP and EUS. Laboratory data did reveal abnormal liver function tests with an AST initially of 65 and an ALT of 80. Repeat AST and ALT were normal. His total bilirubin was elevated at 5.0 which was mostly unconjugated. He had an elevated alkaline phosphatase of 762. He had normal lipase. Asked to see patient for further evaluation. PAST MEDICAL HISTORY: Remarkable for atrial fib with pacemaker, he has been on Pradaxa. History of hypertension, hyperlipidemia, BPH, cholecystectomy, vertebroplasty, nasal reconstruction, tonsillectomy and TURP. ALLERGIES: No known drug allergies. FAMILY HISTORY: Negative as it pertains to chief complaint. SOCIAL HISTORY: Drinks rare alcohol. Nonsmoker. MEDICATIONS: Acetaminophen, allopurinol, Lipitor, Cymbalta, labetalol, Zofran, Oxy IR, Betapace. REVIEW OF SYSTEMS: Negative 10 systems other than mentioned in HPI. PHYSICAL EXAM: VITAL SIGNS: 102/60, heart rate of 80, respiratory rate 14, 96 % sat on 2 L, 36.8. GENERAL: A very pleasant gentleman in no acute distress. HEENT: Normocephalic, atraumatic. EOMI. NECK: Supple. No cervical adenopathy. No thyromegaly. LUNGS: Clear with decreased breath sounds right lung. CARDIAC: Normal S1, S2 without murmur. ABDOMEN: Benign, soft, nontender. No hepatosplenomegaly. EXTREMITIES: Without clubbing, cyanosis, edema. SKIN: Warm, dry, intact. NEURO: Nonfocal. PSYCH: Alert, oriented x3 with normal affect. LABORATORY DATA: As above. IMPRESSION: An 81-year-old gentleman with right pleural effusion that is loculated of unclear etiology. The patient also with abnormal liver function tests with elevated alkaline phosphatase, LFT and elevated bilirubin. A cystic lesion at the head of the pancreas. Question malignancy. RECOMMENDATIONS: We will proceed with ERCP and EUS. We will discuss with Dr. Elizabeth to schedule. We will follow with you. /[id number]/MODL MTDD
[2017-04-24 05:39] LABS: PLATELET COUNT 358 10^3/uL (150-400)
[2017-04-24 05:55] LABS: INR 1.44 (0.83-1.16); PROTIME(PATIENT) 17.7 SEC (12.0-15.0)
[2017-04-24] MEDS ORDERED: LIDOCAINE 1% 300 MG/30 ML SDV ONE (07:30)
[2017-04-24] MEDS: LABETALOL HCL 200 MG TAB PO SCH ×2 (10:51→22:00)
[2017-04-24] MEDS: DULoxetine 60 MG CAP PO SCH (10:51)
[2017-04-24] MEDS: SOTALOL HCL 80 MG TAB PO SCH ×2 (10:51→22:00)
[2017-04-24] MEDS ORDERED: GLUCAGON HCL 1 MG VIAL ONE (13:13)
[2017-04-24] MEDS ORDERED: IOTHALAMATE MEG (CONRAY) 50 ML VIAL IV ONE (13:14)
--- NOTE | 2017-04-24 13:47 | SOAPPROG ---
SOAP Progress Note Assessment/Plan: Assessment: Cystic lesion in the head of the pancreas. Elevated liver enzymes with elevated bilirubin. Normal extra and intrahepatic ducts. ERCP and EUS today to evaluate cystic lesion of the pancreas rule out malignancy. Plan: NPO, ERCP and Upper EUS today at 4 pm. 04/24/17 13:44 Subjective: CC: Right pleural effusion, abnormal LFTs Patient without abdominal pain. Objective: Vital Signs Temp Pulse Resp BP Pulse Ox 36.5 C 79 18 117/79 95 04/24/17 10:28 04/24/17 10:28 04/24/17 10:28 04/24/17 10:28 04/24/17 10:28 Microbiology 04/24/17 09:10 Gram Stain - Final Thoracic Fluid - Aspirate Laboratory Results 04/24/17 05:09 04/24/17 05:09 04/23/17 04/24/17 04/25/17 05:59 05:59 05:59 Intake Total 350 550 Balance 350 550 PT 17.7 SEC (12.0-15.0) H 04/24/17 05:09 INR 1.44 (0.83-1.16) H 04/24/17 05:09 Generic Name Dose Route Start Last Admin Trade Name Freq PRN Reason Stop Dose Admin Acetaminophen 650 mg 04/22/17 18:59 Tylenol PO 10/19/17 18:58 Q4HRS PRN Pain, Mild/Fever, Can Take PO Acetaminophen/Diphenhydramine HCl 1 each 04/22/17 19:08 Tylenol Pm PO 10/19/17 19:07 HS PRN Sleep/Insomnia Allopurinol 300 mg 04/22/17 21:00 04/23/17 20:45 Allopurinol PO 10/19/17 20:59 300 mg HS ELINOR Administration Atorvastatin Calcium 20 mg 04/22/17 21:00 04/23/17 20:45 Lipitor PO 10/19/17 20:59 20 mg HS ELINOR Administration Duloxetine HCl 60 mg 04/23/17 09:00 04/24/17 10:51 Cymbalta PO 10/20/17 08:59 Not Given DAILY ELINOR Labetalol HCl 200 mg 04/22/17 21:00 04/24/17 10:51 Trandate PO 10/19/17 20:59 Not Given BID ELINOR Ondansetron HCl 4 mg 04/22/17 18:59 Zofran IVP 10/19/17 18:58 Q4HRS PRN Nausea/Vomiting, Can't Take PO Ondansetron HCl 4 mg 04/22/17 18:59 Zofran Odt PO 10/19/17 18:58 Q4HRS PRN Nausea/Vomiting, Use 1st Oxycodone HCl 5 - 10 mg 04/22/17 18:59 Oxycodone Ir PO 05/02/17 18:58 Q3HRS PRN Pain, Severe Able to Take PO Sotalol HCl 120 mg 04/22/17 21:00 04/24/17 10:51 Betapace PO 10/19/17 20:59 Not Given BID ELINOR Discontinued Medications Generic Name Dose Route Start Last Admin Trade Name Freq PRN Reason Stop Dose Admin Glucagon Confirm 04/24/17 13:13 Glucagon Administered 04/24/17 13:14 Dose 1 mg .ROUTE .STK-MED ONE Iopamidol Confirm 04/22/17 14:12 Isovue-300 Administered 04/22/17 14:13 Dose 100 ml .ROUTE .STK-MED ONE Iopamidol Confirm 04/22/17 14:14 Isovue-300 Administered 04/22/17 14:15 Dose 100 ml .ROUTE .STK-MED ONE Iopamidol Confirm 04/23/17 10:15 Isovue-300 Administered 04/23/17 10:16 Dose 100 ml .ROUTE .STK-MED ONE Iothalamate Meglumine Confirm 04/24/17 13:14 Conray Administered 04/24/17 13:15 Dose 50 ml IV .STK-MED ONE Lidocaine HCl Confirm 04/24/17 07:30 Lidocaine Hcl 1% Administered 04/24/17 07:31 Dose 300 mg .ROUTE .STK-MED ONE Physical Exam - Physical Exam General Appearance: alert, no apparent distress Respiratory: lungs clear, other (decreased BS right lung) Abdomen: normal bowel sounds, non-tender, soft Skin: normal color, warm/dry Neuro/Psych: no motor/sensory deficits, alert, normal mood/affect ICD10 Worksheet Patient Problems: Problems Problem Status Onset Abnormal liver function test Acute Dyspnea Acute Pleural effusion Acute Chest pain Acute Congestive cardiac failure Acute
--- NOTE | 2017-04-24 14:52 | PDANEPAE ---
ANE History of Present Illness EGD, EUS Right pleural effusion ANE Past Medical History - Cardiovascular History Hx Hypertension: Yes Hx Arrhythmias: Yes Hx Chest Pain: No Hx Coronary Artery / Peripheral Vascular Disease: No Hx CHF / Valvular Disease: No Hx Palpitations: No - Pulmonary History Hx COPD: No Hx Asthma/Reactive Airway Disease: No Hx Recent Upper Respiratory Infection: No Hx Oxygen in Use at Home: No Hx Sleep Apnea: No Sleep Apnea Screening Result - Last Documented: Positive - Neurologic History Hx Cerebrovascular Accident: No Hx Seizures: No Hx Dementia: No - Endocrine History Hx Diabetes: No Hypothyroid: No Hyperthyroid: No Obesity: mild - Renal History Hx Renal Disorders: No - Liver History Hx Hepatic Disorders: No - Neurological & Psychiatric Hx Hx Neurological and Psychiatric Disorders: No - Cancer History Hx Cancer: Yes Cancer History Comment: skin Cancer basall Cell - Congenital Disorder History Hx Congenital Disorders: No - GI History Hx Gastrointestinal Disorders: No - Other Health History Other Health History: ischemic optic neuritis, vision loss, catarract, teeth implants, bruises easily - Chronic Pain History Chronic Pain: Yes - Surgical History Prior Surgeries: tonsillectomy, cholecystectomy, exploratory surgery on Nose ANE Review of Systems Review of Systems: - Exercise capacity METS (RN): 3 METS - Pacemaker Pacemaker Cardiac Monitor Technician: [employer] Pacemaker Model: accent dr Date Pacemaker Last Checked: Apr 10, 2017 ANE Patient History - Allergies Allergies/Adverse Reactions: No Known Allergies Allergy (Unverified 04/22/17 13:05) - Home Medications Home Medications: Acetamn/Diphenhydramine 500/25 [Tylenol PM (*)] 1 each PO HS PRN 04/16/17 [Last Taken 04/22/17] Alendronate Sodium [Fosamax 70 MG (*)] 70 mg PO WE@0700 04/16/17 [Last Taken 09/24] Allopurinol [Allopurinol 300 MG (RX)] 300 mg PO HS 04/16/17 [Last Taken 04/21/17 ] Atorvastatin Calcium [Lipitor 20 mg (*)] 20 mg PO HS 04/16/17 [Last Taken ] DULoxetine [Cymbalta 60 MG (*)] 60 mg PO DAILY 04/16/17 [Last Taken 04/22/17] Dabigatran Etexilate Mesyl [Pradaxa 150 MG (*)] 150 mg PO BID 04/16/17 [Last Taken 04/22/17] Labetalol HCl [Trandate 200 mg (*)] 200 mg PO BID 04/16/17 [Last Taken 04/22/17] Sotalol HCl [Sotalol] 120 mg PO BID 04/16/17 [Last Taken 04/22/17] - NPO status NPO Since - Liquids (Date): 04/23/17 NPO Since - Liquids (Time): 21:00 NPO Since - Solids (Date): 04/23/17 NPO Since - Solids (Time): 17:00 - Anes Hx Anes Hx: no prior problems - Smoking Hx Smoking Status: Former smoker Marijuana use: No - Alcohol Use Alcohol Use: Occasionally - Family Anes Hx Family Anes Hx: none Family Hx Anesthesia Complications: none ANE Labs/Vital Signs - Labs Result Diagrams: 04/24/17 05:09 04/24/17 05:09 - Vital Signs Blood Pressure: 117/79 Heart Rate: 79 Respiratory Rate: 18 O2 Sat (%): 95 Height: 175.26 cm Weight: 87.09 kg ANE Physical Exam - Airway Neck exam: decreased ROM Mallampati Score: Class 2 - Pulmonary Pulmonary: no respiratory distress - Cardiovascular Cardiovascular: irregularly irregular - ASA Status ASA Status: III ANE Anesthesia Plan Anesthesia Plan: general endotracheal anesthesia
[2017-04-24] MEDS ORDERED: INDOMETHACIN 50 MG SUPP PR ONE ×2 (14:54→15:00)
[2017-04-24] MEDS ORDERED: levOFLOXACIN 500 MG/DEXTROSE/100 ML BAG IV ONE (14:57)
[2017-04-24] MEDS ORDERED: fentaNYL 100 MCG/2 ML INJ ONE (15:02)
[2017-04-24] MEDS ORDERED: PROPOFOL/EMULSION 500 MG/50 ML BOTTLE IV ONE (15:02)
[2017-04-24] MEDS ORDERED: LIDOCAINE 2% 5 ML SDV ONE (15:03)
[2017-04-24] MEDS ORDERED: ROCURONIUM 50 MG/5 ML VIAL ONE (15:03)
[2017-04-24] MEDS ORDERED: levOFLOXACIN 500 MG/DEXTROSE 100 ML IV ONE (15:15)
[2017-04-24] MEDS ORDERED: ONDANSETRON 4 MG/2 ML VIAL ONE (16:18)
[2017-04-24] MEDS ORDERED: NEOSTIGMINE METHYLSULFATE 3 MG/3 ML SYR ONE (16:23)
[2017-04-24] MEDS ORDERED: GLYCOPYRROLATE 0.2 MG/1 ML VIAL ONE ×3 (16:23→16:25)
--- NOTE | 2017-04-24 16:39 | SOAPPROG ---
SOAP Progress Note Assessment/Plan: Assessment: Plan: 04/24/17 16:37 GI note S/p EUS with FNA/ERCP. No obvious malignancy noted. + Cystic lesion in head of pancreas- 1cm. FNA performed and fluid sent for CEA. In head of pancreas, also had area of hypoechoic parenchyma which may represents multiple small cysts versus other? Serous cystadenoma vs. other? FNA x 1 performed. On ERCP, biliary sphincterotomy performed and debris removed. No significant stone disease or stricture noted. Keep NPO. IVFs. Objective: Vital Signs Temp Pulse Resp BP Pulse Ox 36.5 C 79 18 117/79 95 04/24/17 14:24 04/24/17 14:56 04/24/17 14:56 04/24/17 14:56 04/24/17 14:56 Microbiology 04/24/17 09:10 Gram Stain - Final Thoracic Fluid - Aspirate Laboratory Results 04/24/17 05:09 04/24/17 05:09 04/23/17 04/24/17 04/25/17 05:59 05:59 05:59 Intake Total 350 550 Balance 350 550 PT 17.7 SEC (12.0-15.0) H 04/24/17 05:09 INR 1.44 (0.83-1.16) H 04/24/17 05:09 ICD10 Worksheet Patient Problems: Problems Problem Status Onset Chest pain Acute Congestive cardiac failure Acute Pleural effusion Acute Abnormal liver function test Acute Dyspnea Acute
--- NOTE | 2017-04-24 16:50 | HOSPPROG ---
Hospitalist Progress Note Assessment/Plan: # loculated pleural effusion on the right- etiology unclear Chest x-ray(personally reviewed and interpreted) non layering effusion on right Oxygen saturations 98% on 1.5 L - status post diagnostic tap by a interventional Radiology - suspect we may need to discuss if fusion with surgery # cystic pancreatic lesion- elevation in liver function tests- Alk Phos 792 - Plan for ERCP EUS today for biopsy # Atrial Fibrillation - holding anticoagulation Pradaxa Heart rates controlled in 70's - continue sotalol - continue to monitor # hypertension- controlled continue labetalol # prophylaxis holding Pradaxa secondary to ERCP/EUS # diet NPO # disposition greater than 2 midnights as patient requiring diagnostic workup for loculated effusion and new cystic pancreatic mass I have discussed the case with the RN-continue supportive cares we wait for diagnostic testing today Subjective: no pain Objective: Vital Signs Temp Pulse Resp BP Pulse Ox 36.5 C 79 18 117/79 95 04/24/17 14:24 04/24/17 14:56 04/24/17 14:56 04/24/17 14:56 04/24/17 14:56 Microbiology 04/24/17 09:10 Gram Stain - Final Thoracic Fluid - Aspirate Laboratory Results 04/24/17 05:09 04/24/17 05:09 04/23/17 04/24/17 04/25/17 05:59 05:59 05:59 Intake Total 350 550 Balance 350 550 PT 17.7 SEC (12.0-15.0) H 04/24/17 05:09 INR 1.44 (0.83-1.16) H 04/24/17 05:09 - Physical Exam Constitutional: no apparent distress Eyes: anicteric sclera Ears, Nose, Mouth, Throat: moist mucous membranes Cardiovascular: regular rate and rhythym Respiratory: no respiratory distress, reduced air movement Gastrointestinal: normoactive bowel sounds Genitourinary: no bladder fullness Skin: warm Musculoskeletal: No asymmetric calves Neurologic: AAOx3 Psychiatric: interacting appropriately Lymph, Heme, Immunologic: no cervical LAD ICD10 Worksheet Patient Problems: Problems Problem Status Onset Abnormal liver function test Acute Dyspnea Acute Pleural effusion Acute Chest pain Acute Congestive cardiac failure Acute
[2017-04-24] MEDS ORDERED: ONDANSETRON 4 MG/2 ML VIAL IVP PRN (16:56)
[2017-04-24] MEDS ORDERED: fentaNYL 100 MCG/2 ML INJ IVP PRN (16:56)
[2017-04-24] MEDS ORDERED: NALOXONE HCL 0.4 MG/ML INJ IVP PRN (16:56)
--- NOTE | 2017-04-24 17:14 | GPN ---
[f rep st] PROCEDURE NOTE DATE OF PROCEDURE: 04/24/2017 PROCEDURE: Esophagogastroduodenoscopy with biopsy, endoscopic ultrasound with fine-needle aspiration. INDICATION: The patient is an 81-year-old male, who presents for evaluation of abnormal imaging with pancreatic abnormalities as well as increased liver function tests. He presents for further evaluation. CONSENT: Risks, benefits, and alternatives of the procedure were discussed in great detail with the patient. Risk of infection, bleeding, perforation, sedation, and pancreatitis were discussed. All questions answered and informed was obtained. MEDICATIONS: General anesthesia. Please see Anesthesia record for details. ESTIMATED BLOOD LOSS: Insignificant. ESOPHAGOGASTRODUODENOSCOPY EXAMINATION: An Olympus upper endoscope was inserted into the mouth and advanced to the esophagus. The proximal and mid esophagus was normal in appearance. An irregular Z-line was noted and biopsies were taken. The stomach was entered and closely examined, including retroflexed views of angularis, cardia and fundus. A Hiatal hernia was noted. The mucosa in the antrum of the stomach was erythematous in a patchy distribution, and biopsies were taken. The duodenal bulb and second portion of the duodenum were normal in appearance. ENDOSCOPIC ULTRASOUND EXAMINATION: An Olympus linear echoendoscope was inserted into the mouth and advanced to the second portion of the duodenum. The esophagus, stomach, and duodenum were visualized endosonographically. The pancreas was examined from the uncinate process to the tail where the spleen was seen. In the head of the pancreas, a 1 cm cyst was seen. It did appear to communicate with a side branch of the pancreatic duct. Doppler was used to rule out intervening vessels. One transduodenal pass was made with a [employer] 25-gauge into the lesion. Approximately half a cubic centimeter of fluid was aspirated and will be sent for CEA. In the head of the pancreas, a 8mm area which appeared slightly hypoechoic with several small cysts. . In some views it had an appearance of a serous cystadenoma? Doppler was used to rule out intervening vessels. One transduodenal pass was made with a [employer] 25-gauge into the lesion. Cytology was present. Preliminary report reveals acinar cells as well as possible cyst epithelium. Due to the small size of the lesion, another pass was not made. In the pancreas parenchyma, hyperechoic foci were noted throughout the pancreas. A few dilated side branches were noted in the body. The common bile duct was seen, measured approximately 6 mm. There was a minor amount of sludge in the duct. In the distal duct the CBD was seen merging with the pancreatic duct. No mass lesion was seen. However, the distal CBD was narrowed with a questionable distal stricture. No portal, peripancreatic or perigastric lymph nodes were appreciated. IMPRESSION: 1. No obvious malignancy. 2. Sludge in the bile duct with questionable distal stricture. 3. Gastritis, status post biopsy. 4. Irregular Z-line, status post biopsy. PLAN: 1. Follow up on biopsy results. 2. Follow up on FNA results. 3. Proceed with ERCP. /[id number]/MODL MTDD
--- NOTE | 2017-04-24 18:55 | GCON ---
[f rep st] CONSULTATION DATE OF CONSULTATION: 04/24/2017 CHIEF COMPLAINT: Loculated pleural effusion. HISTORY OF PRESENT ILLNESS: This is an 81-year-old male, admitted to the medical service on the with shortness of breath. Briefly, he was admitted 5 days prior and was worked up for right-sided c hest pain; it was thought to be musculoskeletal in origin after Cardiology consultation had cleared h im. He was subsequently sent home. Was not feeling well for the past few prior days and had worseni ng shortness of breath, and re-presented at that time. At any rate, chest imaging as well as CT showed a fairly large loculated effusion on the right side f or which he underwent thoracentesis earlier today which shows it to be an exudative effusion; however , they were only able to clear 90 cc of thin serosanguineous fluid. The patient also underwent an en doscopy with endoscopic ultrasound for a pancreatic mass earlier today, as well. Briefly, he remains on nasal cannula oxygen. Denies having any chest pain, but the shortness of breath persists. PAST MEDICAL HISTORY: Atrial fibrillation, on Pradaxa. Hypertension. Hyperlipidemia. BPH. PAST SURGICAL HISTORY: Cholecystectomy, vertebroplasty, nasal reconstruction, tonsillectomy and a tr ansurethral prostate resection. CURRENT MEDICATIONS: Include Pradaxa. ALLERGIES: None. FAMILY HISTORY: Noncontributory. SOCIAL HISTORY: Rare drinker. Does not smoke. Lives with his . REVIEW OF SYSTEMS: 10-point review performed. PHYSICAL EXAM: VITAL SIGNS: Temperature 36.5, blood pressure 99/66, heart rate 86, and he is 91% on 2 L. CONSTITUTIONAL: He is a little bit sleepy, but he is otherwise alert and oriented, and appear s comfortable. HEENT: Eyes: Pupils equal, round, and reactive to light. His extraocular movements are intact. Ears, nose, mouth, throat: He has moist mucous membranes. His hearing is normal. CAR DIOVASCULAR: He has an irregularly irregular rhythm without any murmurs. RESPIRATORY: Lung sounds on the right are distant. He is not in respiratory distress. GI: His abdomen is soft, nondistended , nontender. SKIN: Warm, normal color, no rashes. MUSCULOSKELETAL: Full strength, no tenderness. Normal joint range of motion. NEURO: He is alert and oriented. His cranial nerves are intact. No weakness, no numbness. PSYCH: He is interacting appropriately. He is not anxious. LYMPH/HEME/IMM UNOLOGIC: He has no cervical or supraclavicular lymphadenopathy. LABS: Fluid analysis show exudative effusion. White count today is 12 from 11.5. Coags show that h is INR is 1.4. Chemistry show that his LFTs are elevated with an alkaline phosphatase of 790, a T-bi lirubin of 3.5, mostly conjugated at 2.4. IMAGING: Includes a plain film and a CT scan, CT scan from admission and plain film from today, the images of which were personally reviewed. They both show a large loculated effusion on the right wit hout layering, not significant for empyema. ASSESSMENT AND PLAN: An 81-year-old male with loculated large right pleural effusion. After looking at the patient's imaging and listening to his lungs, I think he would benefit from large bore chest tube thoracostomy. I think that the fluid is thin and it is early enough that we can evacuate most o f it with a chest tube. However, if it fails to resolve or completely clear out, he may need a thora scopic examination and decortication, pending expansion after the chest tube placement. I discussed my findings and recommendations with him and his . They would like to proceed. We will proceed when time available for chest tube placement. /[id number]/MODL
--- NOTE | 2017-04-24 21:00 | GPN ---
[f rep st] PROCEDURE NOTE DATE OF PROCEDURE: 04/24/2017 PROCEDURE: Endoscopic retrograde cholangiopancreatography with biliary sphincterotomy, removal of debris. INDICATION: The patient is an 81-year-old male who presents for evaluation of elevated liver function tests as well as an abnormal EUS with sludge seen in the bile duct with possible distal stricture. CONSENT: Risks, benefits, and alternatives of the procedure were discussed in great detail with the patient. Risks of infection, bleeding, perforation, sedation, and pancreatitis were discussed. All questions answered and informed consent was obtained. MEDICATIONS: General anesthesia. Please see Anesthesia report for details. Rectal indomethacin 100 mg x1, Levaquin 500 mg IV x1. ESTIMATED BLOOD LOSS: Insignificant. ENDOSCOPIC RETROGRADE CHOLANGIOPANCREATOGRAPHY: The Olympus duodenoscope was inserted in the mouth and advanced to the second portion of the duodenum. The ampulla was brought into view and was normal in appearance. Using a [employer] sphincterotome and a 0.035 wire, a wire was advanced to the common bile duct using the wire guided technique. No pancreatic manipulation or injection was made. A cholangiogram was performed to confirm position. There was filling of the entire biliary tree with good flow of bile and image quality. I personally interpreted the images in real time. No ductal dilation was noted and no stricture was noted. A 1 cm sphincterotomy was performed and a balloon sweep was made. There was removal of debris. IMPRESSION: 1. ERCP with sphincterotomy and removal of debris. 2. No biliary stricture noted. 3. Suspect that his elevated liver function tests may be medication induced cholestasis/multifactorial/congestive hepatopathy etc. RECOMMENDATIONS: 1. N.p.o. till tomorrow. 2. Continue IV hydration. 3. Monitor LFTs. /[id number]/MODL MTDD
--- NOTE | 2017-04-24 21:50 | GOP ---
[f rep st] OPERATIVE REPORT DATE OF OPERATION: 04/24/2017 SURGEON: Christopher Issa MD HOUSEKEEPER HEAD: None. ANESTHESIA: 1% lidocaine with epinephrine. PREOPERATIVE DIAGNOSIS: Loculated right effusion. POSTOPERATIVE DIAGNOSIS: Loculated right effusion. PROCEDURE PERFORMED: Right chest tube thoracostomy placement. FINDINGS: Successful placement of right 28-Dominican straight chest tube into the right chest. SPECIMENS: None. ESTIMATED BLOOD LOSS: 5 cc. DESCRIPTION OF PROCEDURE: The patient was greeted in the Emergency Department. After discussing the risks, benefits, alternatives with him and his , his successfully signed the consent. A [facility] time-out was then performed and his right chest was prepped and draped in typ ical sterile fashion. I commenced the procedure by making a field block in the anterior axillary natalie e at the approximate 6th intercostal space. I then made an incision here and tunneled 1 rib space hi gher, through which I entered the chest cavity bluntly, through which I placed a 28-Dominican straight c hest tube and had immediate return of chest fluid. This was attached to the skin using an interrupte d silk suture, over which sterile dressing was placed. It was placed to a Pleur-evac and then to wal l suction. The patient tolerated the procedure well with no intraoperative complications. DRAINS: 28-Dominican straight chest tube. /[id number]/MODL
[2017-04-24] MEDS: ALLOPURINOL 300 MG TAB PO SCH (21:59)
[2017-04-24] MEDS: ATORVASTATIN CALCIUM 20 MG TAB PO SCH (21:59)
[2017-04-25] MEDS: SOTALOL HCL 80 MG TAB PO SCH ×2 (08:39→20:28)
[2017-04-25] MEDS: DULoxetine 60 MG CAP PO SCH (08:39)
[2017-04-25] MEDS: LABETALOL HCL 200 MG TAB PO SCH ×2 (08:40→20:28)
--- NOTE | 2017-04-25 12:42 | SOAPPROG ---
SOAP Progress Note Assessment/Plan: Assessment: S/p ERCP and Upper EUS. No biliary obstruction, Sphincterotomy was performed. Aspiration of Cyst in the head the pancreas. Preliminary serous cystadenoma. Cytology pending. Abnormal LFT's, ? intrahepatic cholestasis. ? medications. Plan: Await cytology from pancreatic cyst aspiration Follow LFT's 04/25/17 12:44 Subjective: CC: Pleural effusion, abnormal LFTs and hyperbilirubinemia Objective: Vital Signs Temp Pulse Resp BP Pulse Ox 36.6 C 90 16 106/68 94 04/25/17 11:18 04/25/17 11:18 04/25/17 11:18 04/25/17 11:18 04/25/17 11:18 Microbiology 04/24/17 09:10 Gram Stain - Final Thoracic Fluid - Aspirate Laboratory Results 04/24/17 05:09 04/24/17 05:09 04/24/17 04/25/17 04/26/17 05:59 05:59 05:59 Intake Total 550 1050 Output Total 260 150 Balance 550 790 -150 PT 17.7 SEC (12.0-15.0) H 04/24/17 05:09 INR 1.44 (0.83-1.16) H 04/24/17 05:09 Generic Name Dose Route Start Last Admin Trade Name Beauq PRN Reason Stop Dose Admin Acetaminophen 650 mg 04/22/17 18:59 Tylenol PO 10/19/17 18:58 Q4HRS PRN Pain, Mild/Fever, Can Take PO Acetaminophen/Diphenhydramine HCl 1 each 04/22/17 19:08 Tylenol Pm PO 10/19/17 19:07 HS PRN Sleep/Insomnia Allopurinol 300 mg 04/22/17 21:00 04/24/17 21:59 Allopurinol PO 10/19/17 20:59 300 mg HS ELINOR Administration Atorvastatin Calcium 20 mg 04/22/17 21:00 04/24/17 21:59 Lipitor PO 10/19/17 20:59 20 mg HS ELINOR Administration Duloxetine HCl 60 mg 04/23/17 09:00 04/25/17 08:39 Cymbalta PO 10/20/17 08:59 60 mg DAILY ELINOR Administration Labetalol HCl 200 mg 04/22/17 21:00 04/25/17 08:40 Trandate PO 10/19/17 20:59 200 mg BID ELINOR Administration Ondansetron HCl 4 mg 04/22/17 18:59 Zofran IVP 10/19/17 18:58 Q4HRS PRN Nausea/Vomiting, Can't Take PO Ondansetron HCl 4 mg 04/22/17 18:59 Zofran Odt PO 10/19/17 18:58 Q4HRS PRN Nausea/Vomiting, Use 1st Oxycodone HCl 5 - 10 mg 04/22/17 18:59 Oxycodone Ir PO 18 18:58 Q3HRS PRN Pain, Severe Able to Take PO Sotalol HCl 120 mg 04/22/17 21:00 04/25/17 08:39 Betapace PO 10/19/17 20:59 120 mg BID ELINOR Administration Discontinued Medications Generic Name Dose Route Start Last Admin Trade Name Freq PRN Reason Stop Dose Admin Fentanyl Confirm 04/24/17 15:02 Sublimaze Administered 04/24/17 15:03 Dose 100 mcg .ROUTE .STK-MED ONE Fentanyl 25 - 100 mcg 04/24/17 16:56 Sublimaze IVP 04/24/17 17:56 Q5M PRN PACU, IMMEDIATE Pain control Glucagon Confirm 04/24/17 13:13 Glucagon Administered 04/24/17 13:14 Dose 1 mg .ROUTE .STK-MED ONE Glycopyrrolate Confirm 04/24/17 16:23 Glycopyrrolate Administered 04/24/17 16:24 Dose 0.2 mg .ROUTE .STK-MED ONE Glycopyrrolate Confirm 04/24/17 16:23 Glycopyrrolate Administered 04/24/17 16:24 Dose 0.2 mg .ROUTE .STK-MED ONE Glycopyrrolate Confirm 04/24/17 16:25 Glycopyrrolate Administered 04/24/17 16:26 Dose 0.2 mg .ROUTE .STK-MED ONE Levofloxacin/Dextrose 100 mls @ 100 mls/hr 04/24/17 15:15 04/24/17 18:39 Levaquin 500 Mg (Premix) IV 04/24/17 16:14 Not Given ONCE ONE Indomethacin Confirm 04/24/17 14:54 Indocin Rectal Administered 04/24/17 14:55 Dose 100 mg [place] .STK-MED ONE Indomethacin 100 mg 04/24/17 15:00 04/24/17 15:30 Indocin Rectal IL 04/24/17 15:01 100 mg ONCE ONE Administration Iopamidol Confirm 04/22/17 14:12 Isovue-300 Administered 04/22/17 14:13 Dose 100 ml .ROUTE .STK-MED ONE Iopamidol Confirm 04/22/17 14:14 Isovue-300 Administered 04/22/17 14:15 Dose 100 ml .ROUTE .STK-MED ONE Iopamidol Confirm 04/23/17 10:15 Isovue-300 Administered 04/23/17 10:16 Dose 100 ml .ROUTE .STK-MED ONE Iothalamate Meglumine Confirm 04/24/17 13:14 Conray Administered 04/24/17 13:15 Dose 50 ml IV .STK-MED ONE Levofloxacin/Dextrose Confirm 04/24/17 14:57 Levaquin 500 Mg (Premix) Administered 04/24/17 14:58 Dose 500 mg IV .STK-MED ONE Lidocaine HCl Confirm 04/24/17 07:30 Lidocaine Hcl 1% Administered 04/24/17 07:31 Dose 300 mg .ROUTE .STK-MED ONE Lidocaine HCl Confirm 04/24/17 15:03 Xylocaine-Mpf 2% Vial Administered 04/24/17 15:04 Dose 5 ml .ROUTE .STK-MED ONE Naloxone HCl 0.1 mg 04/24/17 16:56 Narcan IVP 04/24/17 17:56 Q2M PRN PACU Resp Rate <10/min Neostigmine Methylsulfate Confirm 04/24/17 16:23 Neostigmine Methylsulfate Administered 04/24/17 16:24 Dose 3 mg .ROUTE .STK-MED ONE Ondansetron HCl Confirm 04/24/17 16:18 Zofran Administered 04/24/17 16:19 Dose 4 mg .ROUTE .STK-MED ONE Ondansetron HCl 2 - 4 mg 04/24/17 16:56 Zofran IVP 04/24/17 17:56 Q10M PRN PACU, Nausea/Vomiting Propofol Confirm 04/24/17 15:02 Diprivan 10 Mg/Ml (Premix) Administered 04/24/17 15:03 Dose 500 mg IV .STK-MED ONE Rocuronium [place] Confirm 04/24/17 15:03 Zemuron Administered 04/24/17 15:04 Dose 50 mg .ROUTE .STK-MED ONE Physical Exam - Physical Exam General Appearance: alert, no apparent distress Respiratory: lungs clear, other (decrease bs right lung) Abdomen: normal bowel sounds, non-tender, soft Skin: normal color, warm/dry Neuro/Psych: no motor/sensory deficits, alert, normal mood/affect, oriented x 3 ICD10 Worksheet Patient Problems: Problems Problem Status Onset Abnormal liver function test Acute Dyspnea Acute Pleural effusion Acute Chest pain Acute Congestive cardiac failure Acute
--- NOTE | 2017-04-25 13:04 | SOAPPROG ---
JANET Progress Note Assessment/Plan: Assessment/Plan: -81yo M s/p R CT placement for loculated effusion - doing better today, states that he can subjectively breathe easier - post placement CXR showed some expansion and a lot of residual consolidation - repeat CXR today pending, anticipate it will show improvement as almost 400cc output overnight. - Will cont to follow, if still having issues with expansion would repeat CT Friday vs Friday04/25/17 13:02 Subjective: feels better,feels as though he can breathe easier Objective: Vital Signs Temp Pulse Resp BP Pulse Ox 36.6 C 90 16 106/68 94 04/25/17 11:18 04/25/17 11:18 04/25/17 11:18 04/25/17 11:18 04/25/17 11:18 Microbiology 04/24/17 09:10 Gram Stain - Final Thoracic Fluid - Aspirate Laboratory Results 04/24/17 05:09 04/24/17 05:09 04/24/17 04/25/17 04/26/17 05:59 05:59 05:59 Intake Total 550 1050 Output Total 260 150 Balance 550 790 -150 PT 17.7 SEC (12.0-15.0) H 04/24/17 05:09 INR 1.44 (0.83-1.16) H 04/24/17 05:09 ICD10 Worksheet Patient Problems: Problems Problem Status Onset Abnormal liver function test Acute Dyspnea Acute Pleural effusion Acute Chest pain Acute Congestive cardiac failure Acute
--- NOTE | 2017-04-25 18:47 | HOSPPROG ---
Hospitalist Progress Note Assessment/Plan: # loculated pleural effusion on the right- etiology unclear- plueral fluid c/w exudate- unclear if related to cystc lesion Chest x-ray(personally reviewed and interpreted) improved right sided inflation Oxygen saturations 98% on 1.5 L - status post right thoracostomy tube this am - monitor CT with surgery # cystic pancreatic lesion- elevation in liver function tests- Alk Phos 792- s/ p ERCP EUS with biopsy - pathology pending # Atrial Fibrillation - holding anticoagulation Pradaxa Heart rates controlled in 70's - continue sotalol - continue to monitor # hypertension- controlled continue labetalol # prophylaxis holding Pradaxa secondary to ERCP/EUS- can likely restart over weekend if no additional procedures planned # diet clears # disposition greater than 2 midnights as patient requiring diagnostic workup for loculated effusion and new cystic pancreatic mass I have discussed the case with Dr. Issa - monitoring response to CT Subjective: denies pain Objective: Vital Signs Temp Pulse Resp BP Pulse Ox 36.6 C 71 16 109/62 94 04/25/17 15:38 04/25/17 15:38 04/25/17 15:38 04/25/17 15:38 04/25/17 15:38 Microbiology 04/24/17 09:10 Gram Stain - Final Thoracic Fluid - Aspirate Laboratory Results 04/24/17 05:09 04/24/17 05:09 04/24/17 04/25/17 04/26/17 05:59 05:59 05:59 Intake Total 550 1050 Output Total 260 150 Balance 550 790 -150 PT 17.7 SEC (12.0-15.0) H 04/24/17 05:09 INR 1.44 (0.83-1.16) H 04/24/17 05:09 - Physical Exam Constitutional: no apparent distress Eyes: anicteric sclera Ears, Nose, Mouth, Throat: moist mucous membranes Cardiovascular: regular rate and rhythym Respiratory: no respiratory distress, other (improved bs on right) Gastrointestinal: normoactive bowel sounds Genitourinary: no bladder fullness Skin: warm Musculoskeletal: No asymmetric calves Neurologic: AAOx3 Psychiatric: interacting appropriately Lymph, Heme, Immunologic: no cervical LAD ICD10 Worksheet Patient Problems: Problems Problem Status Onset Abnormal liver function test Acute Dyspnea Acute Pleural effusion Acute Chest pain Acute Congestive cardiac failure Acute
[2017-04-25] MEDS: ALLOPURINOL 300 MG TAB PO SCH (20:27)
[2017-04-25] MEDS: ATORVASTATIN CALCIUM 20 MG TAB PO SCH (20:27)
[2017-04-26] MEDS: SOTALOL HCL 80 MG TAB PO SCH ×2 (08:48→20:28)
--- NOTE | 2017-04-26 10:23 | SOAPPROG ---
[facility] Progress Note Assessment/Plan: Assessment/Plan: -81yo M s/p R CT placement for loculated effusion - continues to improve daily, chest x-ray yesterday shows that the lung is better expanded with small residual effusion, chest tube output over the last 24 hours has been minimal with no air leak. We will plan to place chest tube to water seal. - okay for the patient to get out of bed and ambulate, I also gave him an incentive spirometer which will help with lung consolidation. - plan to reimage tomorrow with a 2 a chest film, but it appears as though the chest tube is working and he is improving. - okay to restart his Pradaxa - discussed with Dr. Yen 04/25/17 13:02 04/26/17 10:21 Subjective: Continues to state that he is breathing better and is coughing up phlegm Objective: Vital Signs Temp Pulse Resp BP Pulse Ox 36.6 C 72 16 120/74 96 04/26/17 07:23 04/26/17 08:48 04/26/17 07:23 04/26/17 08:48 04/26/17 07:23 Microbiology 04/24/17 09:10 Gram Stain - Final Thoracic Fluid - Aspirate Laboratory Results 04/26/17 04:53 04/26/17 04:53 04/25/17 04/26/17 04/27/17 05:59 05:59 05:59 Intake Total 1050 3200 Output Total 260 910 Balance 790 2290 PT 17.7 SEC (12.0-15.0) H 04/24/17 05:09 INR 1.44 (0.83-1.16) H 04/24/17 05:09 ICD10 Worksheet Patient Problems: Problems Problem Status Onset Abnormal liver function test Acute Dyspnea Acute Pleural effusion Acute Chest pain Acute Congestive cardiac failure Acute
[2017-04-26] MEDS: DULoxetine 60 MG CAP PO SCH (11:19)
[2017-04-26] MEDS: LABETALOL HCL 200 MG TAB PO SCH ×2 (11:19→20:26)
--- NOTE | 2017-04-26 15:17 | ASMTCMCOM ---
CM Note CM Note Notes: Spoke w/RN, anticipate pt will dc home w/support of when medically stable. No therapies ordered, CM available for any changes. DC Plan: Independent Date Signed: 04/26/2017 03:17 PM Electronically Signed By:Norma Nelson RN
--- NOTE | 2017-04-26 16:00 | HOSPPROG ---
Hospitalist Progress Note Assessment/Plan: #Loculated pleural effusion: unclear etiology. CT in place for next 1-2 days -unclear etiology. No e/o infection. Query if related to pancreatic lesion?? -screening for connective tissue d/o: HOLLIS, RF, TSH pending #Cystic pancreatic lesion: tumor markers normal, pathology pending -EUS, s/p sphincterotomy #Atrial fibrillation: rate-controlled. Sotalol. Surgery ok with restarting Pradaxa #Elevated LFTs: trending down #Acute hypoxic resp failure: due to effusion. Wean as tolerated #HTN: Labetalol #Deconditioning: walking with RN #DVT ppx: Pradaxa #Disp: warrants inpatient admission for CT tube Subjective: mild pain at CT site. Objective: Vital Signs Temp Pulse Resp BP Pulse Ox 36.8 C 73 16 100/44 L 96 04/26/17 14:58 04/26/17 14:58 04/26/17 14:58 04/26/17 14:58 04/26/17 14:58 Microbiology 04/24/17 09:10 Gram Stain - Final Thoracic Fluid - Aspirate Laboratory Results 04/26/17 04:53 04/26/17 04:53 04/25/17 04/26/17 04/27/17 05:59 05:59 05:59 Intake Total 1050 3200 Output Total 260 910 Balance 790 2290 PT 17.7 SEC (12.0-15.0) H 04/24/17 05:09 INR 1.44 (0.83-1.16) H 04/24/17 05:09 - Physical Exam Constitutional: no apparent distress Eyes: PERRL Ears, Nose, Mouth, Throat: moist mucous membranes Cardiovascular: regular rate and rhythym, No edema Respiratory: no respiratory distress, other (right-sided CT in place with sanginous fluid. ) Genitourinary: no bladder fullness Skin: warm Musculoskeletal: full muscle strength Neurologic: AAOx3, CN II-XII Intact ICD10 Worksheet Patient Problems: Problems Problem Status Onset Abnormal liver function test Acute Dyspnea Acute Pleural effusion Acute Chest pain Acute Congestive cardiac failure Acute
[2017-04-26] MEDS: ALLOPURINOL 300 MG TAB PO SCH (20:26)
[2017-04-26] MEDS: DABIGATRAN ETEXILATE MESYL 150 MG CAP PO SCH (20:28)
[2017-04-26] MEDS: ATORVASTATIN CALCIUM 20 MG TAB PO SCH (20:28)
--- NOTE | 2017-04-27 08:48 | HOSPPROG ---
Hospitalist Progress Note Assessment/Plan: #Loculated pleural effusion: unclear etiology. -CXR (personally reviewed) still with right lung effusion -unclear etiology. No e/o infection; cultures negative -Query if related to pancreatic lesion?? -connective tissue screening: RF and TSH normal. HOLLIS pending -Dr. Issa ordered CT chest; may need IR drain vs. VATs #Cystic pancreatic lesion: tumor markers normal, pathology pending -EUS, s/p sphincterotomy #Atrial fibrillation: rate-controlled. Sotalol. Surgery ok with restarting Pradaxa #Elevated LFTs: trending down #Acute hypoxic resp failure: due to effusion. Wean as tolerated #HTN: Labetalol #Deconditioning: walking with RN #DVT ppx: Pradaxa #Disp: warrants inpatient admission for CT tube, repeat imaging Subjective: coughing up clear sputum. Walk some yesterday Objective: Vital Signs Temp Pulse Resp BP Pulse Ox 36.6 C 72 16 123/73 H 97 04/27/17 07:40 04/27/17 07:40 04/27/17 07:40 04/27/17 07:40 04/27/17 07:40 Microbiology 04/24/17 09:10 Gram Stain - Final Thoracic Fluid - Aspirate Body Fluid Culture - Final Laboratory Results 04/26/17 04:53 04/27/17 04:46 04/26/17 04/27/17 04/28/17 05:59 05:59 05:59 Intake Total 3200 200 Output Total 910 820 Balance 2290 -620 PT 17.7 SEC (12.0-15.0) H 04/24/17 05:09 INR 1.44 (0.83-1.16) H 04/24/17 05:09 - Physical Exam Constitutional: no apparent distress Eyes: PERRL Ears, Nose, Mouth, Throat: moist mucous membranes, hearing normal Cardiovascular: regular rate and rhythym, No edema Respiratory: other (decreased BS right base. Chest tube in place with sanginous drainage) Gastrointestinal: normoactive bowel sounds, soft, non-tender abdomen Genitourinary: no bladder fullness Skin: warm Musculoskeletal: full muscle strength Neurologic: AAOx3, CN II-XII Intact Psychiatric: interacting appropriately ICD10 Worksheet Patient Problems: Problems Problem Status Onset Abnormal liver function test Acute Dyspnea Acute Pleural effusion Acute Chest pain Acute Congestive cardiac failure Acute
[2017-04-27] MEDS: DABIGATRAN ETEXILATE MESYL 150 MG CAP PO SCH ×2 (09:34→20:49)
[2017-04-27] MEDS: LABETALOL HCL 200 MG TAB PO SCH ×2 (09:35→20:50)
[2017-04-27] MEDS: SOTALOL HCL 80 MG TAB PO SCH ×2 (09:36→20:50)
[2017-04-27] MEDS: DULoxetine 60 MG CAP PO SCH (09:36)
[2017-04-27] MEDS: ALLOPURINOL 300 MG TAB PO SCH (20:49)
[2017-04-27] MEDS: ATORVASTATIN CALCIUM 20 MG TAB PO SCH (20:49)
[2017-04-28] MEDS: DULoxetine 60 MG CAP PO SCH (10:09)
[2017-04-28] MEDS: SOTALOL HCL 80 MG TAB PO SCH ×2 (10:09→20:11)
[2017-04-28] MEDS: LABETALOL HCL 200 MG TAB PO SCH ×2 (10:09→20:12)
--- NOTE | 2017-04-28 10:22 | HOSPPROG ---
Hospitalist Progress Note Assessment/Plan: #Loculated pleural effusion: unclear etiology. -Chest tube out today; IR for pigtail catheter -unclear etiology. No e/o infection; cultures negative -Query if related to pancreatic lesion?? -connective tissue screening: RF and TSH normal. HOLLIS pending -Dr. Issa ordered CT chest; may need IR drain vs. VATs #Cystic pancreatic lesion: tumor markers normal, pathology pending -EUS, s/p sphincterotomy #Thyroid nodule -4cm on U/S. Normal TSH. Will need FNA biopsy #Atrial fibrillation: rate-controlled. Sotalol. Pradaxa after procedure #Elevated LFTs: trending down #Acute hypoxic resp failure: due to effusion. Wean as tolerated #HTN: Labetalol #Deconditioning: walking with RN #DVT ppx: Pradaxa #Disp: warrants inpatient admission for CT tube, repeat imaging Subjective: chest tube uncomfortable Objective: Vital Signs Temp Pulse Resp BP Pulse Ox 36.7 C 70 18 145/80 H 97 04/28/17 08:00 04/28/17 10:09 04/28/17 08:00 04/28/17 10:09 04/28/17 08:00 Microbiology 04/24/17 09:10 Gram Stain - Final Thoracic Fluid - Aspirate Body Fluid Culture - Final Laboratory Results 04/28/17 04:57 04/28/17 04:57 04/27/17 04/28/17 04/29/17 05:59 05:59 05:59 Intake Total 200 500 Output Total 820 343 50 Balance -620 157 -50 PT 17.7 SEC (12.0-15.0) H 04/24/17 05:09 INR 1.44 (0.83-1.16) H 04/24/17 05:09 - Physical Exam Constitutional: no apparent distress, other (tired-appearing) Eyes: PERRL Ears, Nose, Mouth, Throat: moist mucous membranes Cardiovascular: regular rate and rhythym, no murmur, rub, or gallop, No edema Respiratory: no respiratory distress, other (decreased BS right mid-lung to base. chest tube in place, site oozing blood) Gastrointestinal: normoactive bowel sounds, soft, non-tender abdomen Genitourinary: no bladder fullness Skin: warm Musculoskeletal: full muscle strength Neurologic: AAOx3, CN II-XII Intact Psychiatric: interacting appropriately ICD10 Worksheet Patient Problems: Problems Problem Status Onset Abnormal liver function test Acute Dyspnea Acute Pleural effusion Acute Chest pain Acute Congestive cardiac failure Acute
--- NOTE | 2017-04-28 11:12 | SOAPPROG ---
SOAP Progress Note Assessment/Plan: Assessment/Plan: -81yo M s/p R CT placement for loculated effusion - CT removed, sentinel hole in subq - IR to place pigtail into residual collection later, pradaxa held - discussed with Lolis 04/25/17 13:02 04/26/17 10:21 04/28/17 11:11 Subjective: no complaints Objective: Vital Signs Temp Pulse Resp BP Pulse Ox 36.7 C 70 18 145/80 H 97 04/28/17 08:00 04/28/17 10:09 04/28/17 08:00 04/28/17 10:09 04/28/17 08:00 Microbiology 04/24/17 09:10 Gram Stain - Final Thoracic Fluid - Aspirate Body Fluid Culture - Final Laboratory Results 04/28/17 04:57 04/28/17 04:57 04/27/17 04/28/17 04/29/17 05:59 05:59 05:59 Intake Total 200 500 Output Total 820 343 50 Balance -620 157 -50 PT 17.7 SEC (12.0-15.0) H 04/24/17 05:09 INR 1.44 (0.83-1.16) H 04/24/17 05:09 ICD10 Worksheet Patient Problems: Problems Problem Status Onset Abnormal liver function test Acute Dyspnea Acute Pleural effusion Acute Chest pain Acute Congestive cardiac failure Acute
[2017-04-28] MEDS: DABIGATRAN ETEXILATE MESYL 150 MG CAP PO SCH (12:18)
--- NOTE | 2017-04-28 15:27 | ASMTCMCOM ---
CM Note CM Note Notes: CM spoke w/ ANA Hall regarding d/c POC. The plan remains the same. Pt will most likely d/c independent with supportive when medically stable. No therapies ordered at this time. CM available for changes. Plan: Independent Date Signed: 04/28/2017 03:27 PM Electronically Signed By:BRAD Shi
[2017-04-28] MEDS: ALLOPURINOL 300 MG TAB PO SCH (20:11)
[2017-04-28] MEDS: ATORVASTATIN CALCIUM 20 MG TAB PO SCH (20:11)
[2017-04-29 05:45] LABS: PLATELET COUNT 405 10^3/uL (150-400)
--- NOTE | 2017-04-29 08:35 | HOSPPROG ---
Hospitalist Progress Note Assessment/Plan: #Loculated pleural effusion: unclear etiology. -unclear etiology. No e/o infection; cultures negative. Low-suspicion for TB. -Query if related to pancreatic lesion?? -connective tissue screening negative: RF, HOLLIS, TSH -Dimer was negative -Appreciate Dr. Moss's consultation. Plan for pigtail catheter today and CTA to r/o PE. #Cystic pancreatic lesion: tumor markers normal, pathology pending -EUS, s/p sphincterotomy #Thyroid nodule -4cm on U/S. Normal TSH. Will need FNA biopsy #Atrial fibrillation: rate-controlled. Sotalol. Pradaxa after procedure #Elevated LFTs: trending down #Acute hypoxic resp failure: due to effusion. Wean as tolerated #HTN: Labetalol #Deconditioning: walking with RN #DVT ppx: Pradaxa #Disp: warrants inpatient admission for CT tube, repeat imaging. C Objective: Vital Signs Temp Pulse Resp BP Pulse Ox 36.8 C 70 16 96/58 L 91 L 04/29/17 07:40 04/29/17 08:00 04/29/17 07:40 04/29/17 08:24 04/29/17 07:40 Laboratory Results 04/29/17 04:45 04/29/17 04:45 04/28/17 04/29/17 04/30/17 05:59 05:59 05:59 Intake Total 500 1650 Output Total 343 300 Balance 157 1350 PT 17.7 SEC (12.0-15.0) H 04/24/17 05:09 INR 1.44 (0.83-1.16) H 04/24/17 05:09 ICD10 Worksheet Patient Problems: Problems Problem Status Onset Abnormal liver function test Acute Dyspnea Acute Pleural effusion Acute Chest pain Acute Congestive cardiac failure Acute
[2017-04-29] MEDS: DULoxetine 60 MG CAP PO SCH (10:40)
[2017-04-29] MEDS: LABETALOL HCL 200 MG TAB PO SCH ×2 (10:40→21:43)
[2017-04-29] MEDS: SOTALOL HCL 80 MG TAB PO SCH ×2 (10:41→21:44)
--- NOTE | 2017-04-29 14:00 | GCON ---
[f rep st] CONSULTATION DATE OF CONSULTATION: 04/29/2017 HISTORY OF PRESENT ILLNESS: I was asked by Dr. Yen to assist in management and assessment of this patient's pleural effusion. He is an 81-year-old male with a history of atrial fibrillation and per manent pacemaker, anticoagulated on Pradaxa, who presented to [facility] on 04/16/2017 complaining of sudden onset pleuritic right-sided chest pain and shortness of breath shortly after a trip to [place]. At that time, he was found to have a minimal pleural effusion on chest x-ray, an ech ocardiogram that was fairly unremarkable, a D-dimer that was negative, troponins that were also negat carlitos, but was found to have an elevated total bilirubin and alkaline phosphatase with an ultrasound sh owing only hemangioma. The pain was thought to be musculoskeletal in origin and he was discharged on the . However, on April 22, he returned to [facility] complaining of increasi ng shortness of breath. A chest x-ray showed a large effusion. An abdominal CT scan showed a locula anabel right-sided effusion concerning for empyema and a pancreatic mass. A CT of his chest around the same time revealed similar findings, also revealed a thyroid nodule, but no chest mass, just complete atelectasis of the right lower lobe and part of the right middle lobe with a large loculated effusio n. His Pradaxa was held for a couple of days and on the , he had a thoracentesis which yielded o nly 95 mL of fluid that was not described as turbid, but did have 46,000 red cells and 527 white cell s, most of which were neutrophils. It was clearly exudative based on protein and LDH, and glucose wa s 83 with a serum glucose of 135. Quite striking, however, was the pH at 7.1. On the same day, he h ad a needle aspirate of the pancreatic mass which looked like a cystic; a malignancy was not found. He also underwent EGD with gastric biopsy showing only gastritis and no evidence of malignancy, as we ll as a sphincterotomy. A chest tube was placed on that day. He did get some drainage of that, but by the , the chest tube had become dislodged and had to be removed. New chest tube placement is pending at the time this dictation. In terms of predisposing risk factors, the patient denies any recent trauma. No previous tuberculosi s exposure. No changes in appetite or unanticipated weight loss. He has had hematuria, the details of which are unclear to me at this time. He denied any sputum production, fevers, chills, or sweats or other signs of pneumonia. He did smoke a pipe, but quit several years ago. No previous lung dise ase. No known asbestos exposure. No swallowing difficulties. No asthma. His liver disease may be chronic, but again I am not quite certain about that. REVIEW OF SYSTEMS: Otherwise negative. PAST MEDICAL HISTORY: 1. Atrial fibrillation. 2. Permanent pacemaker. 3. Benign prostatic hypertrophy. 4. Remote compression fractures. 5. Gout. 6. Hyperlipidemia. 7. Hypertension. 8. Osteoporosis. 9. Remote skin cancer. 10. Hematuria. PAST SURGICAL HISTORY: 1. Cholecystectomy. 2. Nasal reconstruction. 3. Transurethral cyst resection of the prostate. 4. Tonsillectomy. 5. Vertebroplasty. SOCIAL HISTORY: He was a pipe smoker. No significant alcohol or IV drug use. FAMILY HISTORY: Colon cancer, liver cancer, hypertension, diabetes. CURRENT MEDICATIONS: Include Tylenol, allopurinol, Lipitor, Cymbalta, Trandate, Zofran, oxycodone, s otalol. PHYSICAL EXAM: VITAL SIGNS: He is he has been afebrile since admission. Blood pressure 110/62, hea rt rate 80, respirations 16, oxygen saturation 93% on 1 liter nasal cannula. GENERAL: He was a [facility] who was awake and alert, oriented x3 and able to speak in full sentences without using acces yolette muscles for breathing. HEENT: Pupils equally round and reactive to light, nonicteric and nonin jected. Mucous membranes moist without erythema or exudate. NECK: Supple without adenopathy or jug ular vein distention. RESPIRATORY: Breath sounds were diminished, but essentially clear. I could n ot detect a difference from one to the other, did not hear any pleural rubs. HEART: Appeared to be regular rate and rhythm. No obvious murmurs. ABDOMEN: Soft, nontender, nondistended. EXTREMITIES: Showed no clubbing, cyanosis, or edema. NEUROLOGIC: Nonfocal, including cranial nerves, deep tend on reflexes. SKIN: Warm and dry, without evidence of rash. OBJECTIVE DATA: Includes a chest CT on 04/23/2017 showing a large effusion, but no infiltrates or ma sses. A repeat CT on April 23 showed a chest tube in the pleural space. An abdominal CT on Apr showed no ascites and no pericardial fluids, but abnormalities as described above. Pleural fluid on April 24 showed 527 white cells, 46,634 red cells, a pH of 7.1, 85% polys, tota l protein of 4.5, LDH of , glucose of 83. Rheumatoid factor has been negative. Cytology h as been negative. HOLLIS has been negative. BNP was 3150 on the , but [facility] was also unremarkable. CEA levels have been normal as has CA-19-9. A recent SPEP was also normal. Liver tests were abnormal on April 22 with a total bilirubin of 5.0, alkaline phosphatase 762, AST 65, and ALT 80. ASSESSMENT AND PLAN: Problem list: Idiopathic exudative pleural effusion that does have some red ce lls in it, but is not a harmeet hemothorax. The differential diagnoses point strongly toward empyema, though the absence of pneumonia makes this less likely. His glucose is essentially normal, but the p H is quite low. This would indicate that pleural drainage is required. It is not clear to me if rock t pleural fluid specimen was handled correctly, which could also explain the low pH. In any case, he has had a chest tube in place and he will be going back to Interventional Radiology today to have a pigtail catheter placed. We will monitor his drainage over this period of time. He may require tPA or a VATS, particularly if we do not have a diagnosis. The differential does include malignancy. It also includes pulmonary embolism, connective tissue disease, liver disease, asbestosis, paragonimias is, Churg-Jose syndrome, urinothorax, lupus, or esophageal rupture. None of these are very attrac tive options at this time. Pulmonary embolism, of course, seems less likely given the fact that his D-dimer was negative and he was already on Pradaxa. However, this these are not perfect tests, and I think that once the pigtail is in, we should get a CT angiogram to rule that out and be certain. Ev en if he did have a complicated parapneumonic effusion or harmeet empyema, drainage would be the approp riate next step and he has already begun that at this time. I would like to tie in the pleural effus ion with his liver disease, but he does not have ascites and so hepatic hydrothorax complicated by so me bleeding on Pradaxa is a possibility, but seems less likely. SUMMARY: We will get the pigtail catheter placed, look at a CT angiogram to rule out PE and consider VATS in the near future. /[id number]/MODL
[2017-04-29] MEDS ORDERED: MEPERIDINE 25 MG/ML SYR IVP PRN (15:13)
[2017-04-29] MEDS ORDERED: fentaNYL 100 MCG/2 ML INJ IVP PRN (15:13)
[2017-04-29] MEDS ORDERED: HEPARIN 10,000 UNIT/10 ML MDV (1,000 UNIT/ML) IVP PRN (15:13)
[2017-04-29] MEDS ORDERED: GLUCAGON HCL 1 MG VIAL IVP PRN (15:13)
[2017-04-29] MEDS ORDERED: NALOXONE HCL 0.4 MG/ML INJ IVP PRN (15:13)
[2017-04-29] MEDS ORDERED: FLUMAZENIL 0.5 MG/5 ML MDV IVP PRN (15:13)
[2017-04-29] MEDS ORDERED: ALTEPLASE 2 MG VIAL IVP PRN (15:13)
[2017-04-29] MEDS ORDERED: PROTAMINE SULFATE 50 MG/5 ML VIAL IVP PRN (15:13)
[2017-04-29] MEDS ORDERED: MIDAZOLAM 2 MG/2 ML VIAL IVP PRN (15:13)
[2017-04-29] MEDS ORDERED: NS 1,000 ML IV SCH (15:15)
[2017-04-29] MEDS ORDERED: fentaNYL 100 MCG/2 ML INJ ONE (16:35)
[2017-04-29] MEDS ORDERED: MIDAZOLAM 2 MG/2 ML VIAL ONE (16:35)
[2017-04-29] MEDS ORDERED: FLUMAZENIL 0.5 MG/5 ML MDV IVP ONE (16:35)
[2017-04-29] MEDS ORDERED: NALOXONE HCL 0.4 MG/ML INJ ONE (16:35)
--- NOTE | 2017-04-29 17:12 | PDPROPOC ---
Sedation Plan of Care Sedation Plan of Care: vital signs stable, mental status noted, patient educated of risks, benefits, alternatives, patient can tolerate sedation ASA Classification: ASA 3 Planned drugs: fentanyl, midazolam Mallampati Score: Class 1 Mallampati Reference Image: Patient passed 3-3-2 rule?: Yes
--- NOTE | 2017-04-29 17:37 | PDRADPN ---
Radiology Procedure Note Date of Procedure: 04/29/17 Radiologist: Jackie Manning Anesthesia: IV Sedation Pre-op Diagnosis: RT LOCULATED EFFUSION Post-op Diagnosis: SAME Indication: MODERATE RESIDUAL FLUID AFTER SURGICAL CHEST TUBE Procedure: CT GUIDED 16 FR THALQUIK PLACEMENT Finding(s): SEROSANGUINOUS, CLOTTY FLUID. SOME TISSUE LOOKING MATERIAL WELL. OUTPUT IS NOT VERY FAST. Inf/Abcess present in the surg proc area at time of surgery?: No Complications: NONE Drains: Other (16FR THALQUIK.)
[2017-04-29] MEDS: ATORVASTATIN CALCIUM 20 MG TAB PO SCH (21:43)
[2017-04-29] MEDS: ALLOPURINOL 300 MG TAB PO SCH (21:43)
[2017-04-29] MEDS: ACETAMINOPHEN 325 MG TAB PO PRN (21:44)
[2017-04-30 05:57] LABS: PLATELET COUNT 431 10^3/uL (150-400)
[2017-04-30] MEDS: LABETALOL HCL 200 MG TAB PO SCH (09:33)
[2017-04-30] MEDS: SOTALOL HCL 80 MG TAB PO SCH ×2 (09:33→20:46)
[2017-04-30] MEDS: DULoxetine 60 MG CAP PO SCH (09:33)
[2017-04-30] MEDS: ACETAMINOPHEN 325 MG TAB PO PRN ×2 (09:39→20:46)
--- NOTE | 2017-04-30 12:02 | HOSPPROG ---
Hospitalist Progress Note Assessment/Plan: #Loculated pleural effusion: unclear etiology. Possibly infection though cultures negative. S/P thora, exudate by light's criteria and low pH. Could be empyema, but no associated PNA. Low-suspicion for TB. Could be related to pancreatic lesion or biliary process. Connective tissue screening negative: RF , HOLLIS, TSH. Dimer was negative. Discussed with pulmonary, appreciate Dr Moss' s insights. -Pigtail catheter placed by IR yesterday, 105 cc's out overnight -CTA today to r/o PE -bronchoscopy in am, npo after midnight -likely needs VATS, surgery consulted #Cystic pancreatic lesion: tumor markers normal, pathology pending -EUS, s/p sphincterotomy #Elevated LFTs: trending down after sphincterotomy -cont to trend #Thyroid nodule -4 cm on U/S. Normal TSH. -needs FNA biopsy, likely ok to pursue as outpt #Atrial fibrillation: Chads-vasc 3. rate-controlled on Sotalol, stroke prevention with pradaxa, which has been held for procedures -hold labetalol due to low bp today -cont to hold pradaxa as planning for bronch in am and likely VATS soon #Hypotension: SBP 88 -NS bolus, repeat SBP 105, resume maintenance IVF's, especially given NPO status -hold labetalol #Acute hypoxic resp failure: due to effusion. Wean as tolerated #HTN: Labetalol #Deconditioning: walking with RN #DVT ppx: Pradaxa #Disp: warrants inpatient admission for CT tube, repeat imaging. C Subjective: Pt up in chair. Denies CP, SOB or dizziness. Breathing improved from presentation, but still not back to baseline. No fevers. Objective: Vital Signs Temp Pulse Resp BP Pulse Ox 36.6 C 81 14 126/74 H 97 04/30/17 08:00 04/30/17 09:33 04/30/17 08:00 04/30/17 09:33 04/30/17 08:00 Laboratory Results 04/30/17 05:21 04/30/17 07:45 04/29/17 04/30/17 05/01/17 05:59 05:59 05:59 Intake Total 4645 157 9625 Output Total 300 490 Balance 1350 60 1000 PT 17.7 SEC (12.0-15.0) H 04/24/17 05:09 INR 1.44 (0.83-1.16) H 04/24/17 05:09 - Physical Exam Constitutional: no apparent distress Eyes: PERRL Ears, Nose, Mouth, Throat: moist mucous membranes Cardiovascular: regular rate and rhythym Respiratory: no respiratory distress Gastrointestinal: normoactive bowel sounds, soft, non-tender abdomen Skin: warm Musculoskeletal: full muscle strength Neurologic: AAOx3 Psychiatric: interacting appropriately ICD10 Worksheet Patient Problems: Problems Problem Status Onset Abnormal liver function test Acute Dyspnea Acute Pleural effusion Acute Chest pain Acute Congestive cardiac failure Acute
[2017-04-30] MEDS ORDERED: IOPAMIDOL (ISOVUE 370) 100 ML BTL IV ONE (13:57)
--- NOTE | 2017-04-30 14:08 | SOAPPROG ---
SOAP Progress Note Assessment/Plan: Assessment: Patient with persistent right empyema inadequately drained with IR tube CT shows a thick collection in the right chest Afebrile presently/etiology unclear Will need VATS decortication Plan: Arrange VATS decortication/risks and options fully discussed/will discuss with Dr. Moss 04/30/17 14:06 Objective: Vital Signs Temp Pulse Resp BP Pulse Ox 36.9 C 81 12 88/52 L 97 04/30/17 11:58 04/30/17 11:58 04/30/17 11:58 04/30/17 11:58 04/30/17 11:58 Laboratory Results 04/30/17 05:21 04/30/17 07:45 04/29/17 04/30/17 05/01/17 05:59 05:59 05:59 Intake Total 2817 108 2292 Output Total 300 490 Balance 1350 60 1000 PT 17.7 SEC (12.0-15.0) H 04/24/17 05:09 INR 1.44 (0.83-1.16) H 04/24/17 05:09 ICD10 Worksheet Patient Problems: Problems Problem Status Onset Abnormal liver function test Acute Dyspnea Acute Pleural effusion Acute Chest pain Acute Congestive cardiac failure Acute
[2017-04-30] MEDS ORDERED: NS 1,000 ML IV ONE (14:14)
[2017-04-30] MEDS: NS 1,000 ML IV SCH (15:17)
--- NOTE | 2017-04-30 16:30 | ASMTCMCOM ---
CM Note CM Note Notes: Spoke w/ RN, considers pt independent, moves well but did have procedure today, BRYCE w/f. Date Signed: 04/30/2017 04:30 PM Electronically Signed By:Norma Nelson RN
--- NOTE | 2017-04-30 16:58 | PDINTPN ---
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 Initially seen at [facility] 04/16/17 without obvious cause, though there was blunting of the right CPA. D-dimer was negative and he was on pradaxa at the time. He had elevated LFTs in a cholestatic pattern, but no clear etiology. He was dc'd home but returned 04/22 with increasing SOB and was found to have a significant increase in right pleural effusion. A thoracentesis showed a non- specific exudate with 46,000 RBCs, and a pH of 7.1. However, cultures were negative and he had no evidence of PNA. A large bore chest tube was placed, but became dislodged, so another tube as placed 04/29 with some, but inadequate drainage. * Pleural effusion- the etiology is uncertain, though I suspect is in some way related to his LFT abnormalities. The blood in the fluid is small and no doubt effected by his anticoagulation. Cytology was negative as was RF, and there are no signs of TB. Given the lack of resolution, I support a VATS both for treatment and diagnostics- eg pleural biopsy. While my clinical suspicion is low , a PE needs to be ruled out. Subjective: feels ok. IR placed new chest tube with some output Objective: Vital Signs Temp Pulse Resp BP Pulse Ox 36.4 C 83 16 95/58 L 95 04/30/17 15:24 04/30/17 15:24 04/30/17 15:24 04/30/17 15:24 04/30/17 15:24 Laboratory Results 04/30/17 05:21 04/30/17 07:45 04/29/17 04/30/17 05/01/17 05:59 05:59 05:59 Intake Total 2203 512 1049 Output Total 300 490 Balance 1350 60 1000 PT 17.7 SEC (12.0-15.0) H 04/24/17 05:09 INR 1.44 (0.83-1.16) H 04/24/17 05:09 Physical Exam - Physical Exam General Appearance: WD/WN, alert, no apparent distress EENT: PERRL/EOMI Neck: supple Respiratory: decreased breath sounds, No respiratory distress, No accessory muscle use, No stridor, No wheezing Cardiac/Chest: regular rate, rhythm, No edema Abdomen: non-tender, soft, No distended Skin: normal color, warm/dry, No cyanosis Lymphatic: no adenopathy Extremities: No pedal edema Neuro/Psych: alert, normal mood/affect, oriented x 3 ICD10 Worksheet Patient Problems: Problems Problem Status Onset Abnormal liver function test Acute Dyspnea Acute Pleural effusion Acute Chest pain Acute Congestive cardiac failure Acute
[2017-04-30] MEDS ORDERED: ceFAZolin 2 GM/SWFI 2 GM/20 ML SYR IVP ONE (17:15)
--- NOTE | 2017-04-30 20:12 | GCON ---
[f rep st] CONSULTATION DATE OF CONSULTATION: 04/30/2017 HISTORY OF PRESENT ILLNESS: The patient is an 81-year-old male who was admitted for right-sided chest pain. He has had an extensive workup and has been here for over a week. He has persistent right-sided empyema collection, although he is afebrile. He has had this drained with 2 separate tubes, which have failed to resolve the issue. I was consulted today for possibility of a VATS procedure. He has had also some elevated LFTs, which have been worked up, thought to be possibly cholestatic in nature. Present illness is complicated by the fact that he is on Pradaxa for atrial fibrillation. It is possible that this is an organized hemothorax. ALLERGIES: None. FAMILY HISTORY: Noncontributory. MEDICATIONS: Include Pradaxa and others listed in the chart. PAST MEDICAL HISTORY: Includes cholecystectomy, tonsillectomy, TURP, hypertension, BPH symptoms and atrial fibrillation. REVIEW OF SYSTEMS: Negative on a 10-point review of systems. Specifically, he has no reflux, no tooth abscesses, no recent trauma to his chest and he does not smoke. PHYSICAL EXAMINATION: GENERAL: An alert 81-year-old male in no acute distress. HEAD/NECK: Reveals him to be nonicteric with no adenopathy. NECK: Supple. CHEST: Reveals dullness in the right base, but bilateral breath sounds. CARDIAC: Reveals an irregular rhythm without murmurs. ABDOMEN: Soft. EXTREMITIES: Benign with full pulses. NEUROLOGIC: Exam is physiologic. PSYCHIATRIC: Exam reveals him to be alert, oriented, and cooperative. IMPRESSION: Contained hemothorax or chronic empyema of uncertain etiology. I think this warrants a VATS decortication procedure as the hemothorax_has persisted and is even enlarging. The risks and o[tions have been fully discussed with the patient who wishes to proceed. He understands that he will feel significantly more uncomfortable after the procedure for a while than he does presently. /[id number]/MODL MTDD
[2017-04-30] MEDS: ALLOPURINOL 300 MG TAB PO SCH (20:45)
[2017-04-30] MEDS: ATORVASTATIN CALCIUM 20 MG TAB PO SCH (20:45)
[2017-04-30] MEDS ORDERED: DABIGATRAN ETEXILATE MESYL 150 MG CAP PO SCH (21:00)
[2017-05-01] MEDS: NS 1,000 ML IV SCH (01:05)
[2017-05-01 05:18] LABS: PLATELET COUNT 407 10^3/uL (150-400)
[2017-05-01] MEDS ORDERED: ERTAPENEM 1 GM VIAL IV ONE (06:00)
[2017-05-01] MEDS: SOTALOL HCL 80 MG TAB PO SCH ×2 (08:47→21:06)
[2017-05-01] MEDS: DULoxetine 60 MG CAP PO SCH (08:47)
--- NOTE | 2017-05-01 10:20 | HOSPPROG ---
Hospitalist Progress Note Assessment/Plan: #Loculated pleural effusion: unclear etiology. Possibly infection / empyema though cultures negative and no e/o PNA. S/P thora, exudate by light's criteria and low pH. Cytology neg. Low suspicion for TB. Could be related to pancreatic lesion or biliary process. Connective tissue screening negative: RF , HOLLIS, TSH. CTA neg for PE. Discussed with pulmonary, appreciate Dr Moss's insights. -Pigtail catheter placed by IR 04/29, <50 cc's out overnight -surgery consulted, planning for VATS today for definitive drainage and pleural biopsy #Cystic pancreatic lesion: tumor markers normal, pathology neg for malignant cells -EUS, s/p sphincterotomy #Elevated LFTs: trending down after sphincterotomy -cont to trend #Thyroid nodule -4 cm on U/S. Normal TSH. -needs FNA biopsy, likely ok to pursue as outpt #Atrial fibrillation: Chads-vasc 3. rate-controlled on Sotalol, stroke prevention with pradaxa, which has been held for procedures -holding labetalol due to low bp yesterday -cont to hold pradaxa with pending VATS, resume tomorrow #Hypotension: resolved with NS bolus, resumption of IVF's -holding labetalol #Acute hypoxic resp failure: due to effusion. Wean as tolerated #Anemia: presenting hgb ~10, now 8.2, but note frequent blood draws. He had a normal colonoscopy 2 yrs ago by his report. -check iron, TIBC #HTN: Labetalol #Deconditioning: walking with RN #DVT ppx: Pradaxa #Disp: warrants inpatient admission for CT tube, repeat imaging. C Subjective: Pt in good spirits. Denies CP or SOB. No fevers. Objective: Vital Signs Temp Pulse Resp BP Pulse Ox 36.6 C 72 16 138/74 H 98 05/01/17 07:58 05/01/17 07:58 05/01/17 07:58 05/01/17 07:58 05/01/17 07:58 Laboratory Results 05/01/17 04:57 05/01/17 04:57 04/30/17 05/01/17 05/02/17 05:59 05:59 05:59 Intake Total 550 4693 Output Total 490 1148 241 Balance 60 3545 -241 PT 17.7 SEC (12.0-15.0) H 04/24/17 05:09 INR 1.44 (0.83-1.16) H 04/24/17 05:09 - Physical Exam Constitutional: no apparent distress Eyes: PERRL Ears, Nose, Mouth, Throat: moist mucous membranes Cardiovascular: regular rate and rhythym Respiratory: no respiratory distress, inspiratory crackles Gastrointestinal: normoactive bowel sounds, soft, non-tender abdomen Skin: warm Musculoskeletal: full muscle strength Neurologic: AAOx3 Psychiatric: interacting appropriately ICD10 Worksheet Patient Problems: Problems Problem Status Onset Abnormal liver function test Acute Dyspnea Acute Pleural effusion Acute Chest pain Acute Congestive cardiac failure Acute
[2017-05-01] MEDS ORDERED: LR 1,000 ML IV ONE (13:33)
--- NOTE | 2017-05-01 14:18 | PDANEPAE ---
ANE History of Present Illness Right VATS ANE Past Medical History - Cardiovascular History Hx Hypertension: Yes Hx Arrhythmias: Yes Hx Chest Pain: No Hx Coronary Artery / Peripheral Vascular Disease: No Hx CHF / Valvular Disease: No Hx Palpitations: No - Pulmonary History Hx COPD: No Hx Asthma/Reactive Airway Disease: No Hx Recent Upper Respiratory Infection: No Hx Oxygen in Use at Home: No Hx Sleep Apnea: No Sleep Apnea Screening Result - Last Documented: Positive - Neurologic History Hx Cerebrovascular Accident: No Hx Seizures: No Hx Dementia: No - Endocrine History Hx Diabetes: No Hypothyroid: No Hyperthyroid: No Obesity: mild - Renal History Hx Renal Disorders: No - Liver History Hx Hepatic Disorders: No - Neurological & Psychiatric Hx Hx Neurological and Psychiatric Disorders: No - Cancer History Hx Cancer: Yes Cancer History Comment: skin Cancer basall Cell - Congenital Disorder History Hx Congenital Disorders: No - GI History GERD: mild Hx Gastrointestinal Disorders: No - Other Health History Other Health History: ischemic optic neuritis, vision loss, catarract, teeth implants, bruises easily - Chronic Pain History Chronic Pain: Yes - Surgical History Prior Surgeries: tonsillectomy, cholecystectomy, exploratory surgery on Nose ANE Review of Systems Review of Systems: - Exercise capacity METS (RN): 3 METS - Pacemaker Pacemaker Body Technician/Painter: [employer] Pacemaker Model: accent dr Pacemaker Mode: DDDR Date Pacemaker Last Checked: Apr 10, 2017 ANE Patient History - Allergies Allergies/Adverse Reactions: No Known Allergies Allergy (Unverified 04/22/17 13:05) - Home Medications Home medications: home medication list seen and reviewed Home Medications: Acetamn/Diphenhydramine 500/25 [Tylenol PM (*)] 1 each PO HS PRN 04/16/17 [Last Taken 04/22/17] Alendronate Sodium [Fosamax 70 MG (*)] 70 mg PO WE@0700 04/16/17 [Last Taken 09/24] Allopurinol [Allopurinol 300 MG (RX)] 300 mg PO HS 04/16/17 [Last Taken 04/21/17 ] Atorvastatin Calcium [Lipitor 20 mg (*)] 20 mg PO HS 04/16/17 [Last Taken ] DULoxetine [Cymbalta 60 MG (*)] 60 mg PO DAILY 04/16/17 [Last Taken 04/22/17] Dabigatran Etexilate Mesyl [Pradaxa 150 MG (*)] 150 mg PO BID 04/16/17 [Last Taken 04/22/17] Labetalol HCl [Trandate 200 mg (*)] 200 mg PO BID 04/16/17 [Last Taken 04/22/17] Sotalol HCl [Sotalol] 120 mg PO BID 04/16/17 [Last Taken 04/22/17] - NPO status NPO Since - Liquids (Date): 05/01/17 NPO Since - Liquids (Time): 00:00 NPO Since - Solids (Date): 05/01/17 NPO Since - Solids (Time): 00:00 - Anes Hx Anes Hx: no prior problems - Smoking Hx Smoking Status: Former smoker Marijuana use: No - Alcohol Use Alcohol Use: Occasionally - Family Anes Hx Family Anes Hx: none Family Hx Anesthesia Complications: none ANE Labs/Vital Signs - Labs Result Diagrams: 05/01/17 04:57 05/01/17 04:57 - Vital Signs Blood Pressure: 160/82 Heart Rate: 72 Respiratory Rate: 20 O2 Sat (%): 98 Height: 175.26 cm Weight: 87.09 kg ANE Physical Exam - Airway Neck exam: FROM Mallampati Score: Class 2 Mouth exam: normal dental/mouth exam - Pulmonary Pulmonary: no respiratory distress - Cardiovascular Cardiovascular: regular rate and rhythym, no murmur, rub, or gallop - ASA Status ASA Status: III ANE Anesthesia Plan Anesthesia Plan: general endotracheal anesthesia Lines/Monitors: arterial line (Thoracic T4 epidural)
[2017-05-01] MEDS ORDERED: BUPIVACAINE/EPI 0.5% 30 ML SDV ONE (14:21)
[2017-05-01] MEDS ORDERED: fentaNYL 100 MCG/2 ML INJ ONE ×5 (14:36→20:07)
--- NOTE | 2017-05-01 14:36 | PDINTPN ---
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 Initially seen at [facility] 04/16/17 without obvious cause, though there was blunting of the right CPA. D-dimer was negative and he was on pradaxa at the time. He had elevated LFTs in a cholestatic pattern, but no clear etiology. He was dc'd home but returned 04/22 with increasing SOB and was found to have a significant increase in right pleural effusion. A thoracentesis showed a non- specific exudate with 46,000 RBCs, and a pH of 7.1. However, cultures were negative and he had no evidence of PNA. A large bore chest tube was placed, but became dislodged, so another tube as placed 04/29 with some, but inadequate drainage. * Pleural effusion- the etiology is uncertain, though I suspect is in some way related to his LFT abnormalities. The blood in the fluid is small and no doubt effected by his anticoagulation. Cytology was negative as was RF, and there are no signs of TB. Given the lack of resolution, I support a VATS both for treatment and diagnostics- eg pleural biopsy. No PE on CTA. Await VATS today 05/01/17 14:35 Subjective: no events Objective: Vital Signs Temp Pulse Resp BP Pulse Ox 37.0 C 72 20 160/82 H 98 05/01/17 13:43 05/01/17 14:18 05/01/17 14:18 05/01/17 14:18 05/01/17 14:18 Laboratory Results 05/01/17 04:57 05/01/17 04:57 04/30/17 05/01/17 05/02/17 05:59 05:59 05:59 Intake Total 550 4693 410 Output Total 490 1148 241 Balance 60 3545 169 PT 17.7 SEC (12.0-15.0) H 04/24/17 05:09 INR 1.44 (0.83-1.16) H 04/24/17 05:09 Physical Exam - Physical Exam General Appearance: WD/WN, alert, no apparent distress EENT: PERRL/EOMI Neck: supple Respiratory: lungs clear, normal breath sounds, No respiratory distress, No accessory muscle use Cardiac/Chest: regular rate, rhythm, No edema Abdomen: non-tender, soft, No distended Skin: normal color, warm/dry, No cyanosis Lymphatic: no adenopathy Extremities: No pedal edema Neuro/Psych: alert, normal mood/affect, oriented x 3 ICD10 Worksheet Patient Problems: Problems Problem Status Onset Abnormal liver function test Acute Dyspnea Acute Pleural effusion Acute Chest pain Acute Congestive cardiac failure Acute
[2017-05-01] MEDS ORDERED: PROPOFOL/EMULSION 500 MG/50 ML BOTTLE IV ONE ×2 (15:00→18:39)
[2017-05-01] MEDS ORDERED: oxyCODONE IR 5 MG TAB PO PRN (15:09)
[2017-05-01] MEDS ORDERED: GLYCOPYRROLATE 0.2 MG/1 ML VIAL ONE ×2 (15:36→15:47)
[2017-05-01] MEDS ORDERED: ROCURONIUM 100 MG/10 ML VIAL ONE ×2 (15:47→21:53)
[2017-05-01] MEDS ORDERED: DEXAMETHASONE 4 MG/ML VIAL ONE (15:47)
[2017-05-01] MEDS ORDERED: PROPOFOL 200 MG/20 ML VIAL ONE (15:48)
[2017-05-01] MEDS ORDERED: ALBUMIN 5% 250 ML BOTTLE IV ONE (17:30)
[2017-05-01] MEDS ORDERED: TRANEXAMIC ACID 1,000 MG in NS 100 ML IV ONE (18:05)
[2017-05-01] MEDS ORDERED: TRANEXAMIC ACID 1,000 MG in NS 500 ML IV ONE (18:05)
[2017-05-01] MEDS ORDERED: CALCIUM CHLORIDE 1 GM/10 ML INJ ONE ×2 (18:29→19:32)
[2017-05-01 18:59] LABS: PLATELET COUNT 309 10^3/uL (150-400)
[2017-05-01 19:11] LABS: INR 1.82 (0.83-1.16); PROTIME(PATIENT) 21.2 SEC (12.0-15.0)
[2017-05-01] MEDS ORDERED: ceFAZolin 1 GM VIAL ONE (19:32)
[2017-05-01] MEDS ORDERED: fentanYL/NACL/100 ML BAG IV ONE (20:16)
[2017-05-01] MEDS ORDERED: PROPOFOL/EMULSION 1,000 MG/100 ML BOTTLE IV ONE (20:16)
[2017-05-01] MEDS ORDERED: ONDANSETRON 4 MG/2 ML VIAL IVP PRN (20:22)
[2017-05-01] MEDS ORDERED: D5W 1/2 NS W/ 20 KCl/L 1,000 ML IV SCH (20:30)
--- NOTE | 2017-05-01 20:30 | POSTOPPROG ---
Post Op Note Date of Operation: 05/01/17 Surgeon: Ruy Zamora Shipping Point Inspector: LYDIA Anesthesiologist: BLAINE Anesthesia: GET(General Endotracheal) Pre-op Diagnosis: EMPYEMA Post-op Diagnosis: SAME Indication: LUNG REEXPANSION Procedure: VATS DRAINAGE OF EMPYEMA AND DECORTICATION/EMERGENCY ANTERIOR THORACOTOMY W Findings: TOTALLY ENTRAPPED THE RIGHT LOWER LOBE WITH CLOUDY FLUID IN THE CAVITY AND Inf/Abcess present in the surg proc area at time of surgery?: Yes Depth: Organ Space EBL: Greater than 1000 Total fluids administered: 6 UNITS OF BLOOD Complications: CHEST WALL BLEEDING AFTER PULLING HIS POSTERIOR CHEST TUBE RESULTING IN NEAR CARDIAC RISK AND REQUIRING SOME CPR Drains: Constavac Specimen(s): PLEURAL TISSUE AND CULTURES
[2017-05-01 20:33] LABS: PLATELET COUNT 291 10^3/uL (150-400)
[2017-05-01 20:34] LABS: INR 1.45 (0.83-1.16); PROTIME(PATIENT) 17.8 SEC (12.0-15.0)
[2017-05-01] MEDS ORDERED: fentaNYL 100 MCG/2 ML INJ IVP PRN ×2 (20:55→21:41)
[2017-05-01] MEDS: fentaNYL/NACL 100 ML IV SCH (21:00)
[2017-05-01] MEDS: PROPOFOL/EMULSION 100 ML IV SCH (21:00)
[2017-05-01] MEDS: ATORVASTATIN CALCIUM 20 MG TAB PO SCH (21:06)
[2017-05-01] MEDS: ALLOPURINOL 300 MG TAB PO SCH (21:06)
[2017-05-01] MEDS ORDERED: HYDROmorphONE/DILAUDID 1 MG/ML INJ IVP PRN (21:41)
[2017-05-01] MEDS ORDERED: NALOXONE HCL 0.4 MG/ML INJ IVP PRN (21:41)
[2017-05-01] MEDS ORDERED: PHENYLEPHRINE HCL 100 MCG/ML SYR ONE (21:54)
[2017-05-01] MEDS ORDERED: NS 500 ML IV ONE (22:46)
--- NOTE | 2017-05-01 23:02 | CPEKG ---
Heart Rate: 87 RR Interval: 690 P-R Interval: 196 QRSD Interval: 110 QT Interval: 400 QTC Interval: 482 QRS [place]: -46 T Wave [place]: 54 EKG Severity - ABNORMAL ECG - EKG Impression: ATRIAL-PACED COMPLEXES EKG Impression: ANTERIOR Q WAVES, POSSIBLY DUE TO ILBBB Electronically Signed By: Morgan Blas 02-May-2017 08:30:16
[2017-05-02] MEDS ORDERED: D5W 1/2 NS 1,000 ML IV SCH (02:00)
[2017-05-02] MEDS: PROPOFOL/EMULSION 100 ML IV SCH (04:15)
[2017-05-02] MEDS: fentaNYL/NACL 100 ML IV SCH (04:41)
[2017-05-02 05:41] LABS: PLATELET COUNT 270 10^3/uL (150-400)
[2017-05-02] MEDS ORDERED: NALOXONE HCL 0.4 MG/ML INJ IVP PRN (07:46)
[2017-05-02] MEDS ORDERED: NARCOTIC DRIP BAG-TOTAL ALL TYPES EP PRN (07:46)
[2017-05-02] MEDS ORDERED: HYDROmorph 10MCG/ML&BUP 0.1% in 100ML NS EP SCH (07:46)
[2017-05-02] MEDS ORDERED: FUROSEMIDE 20 MG/2 ML VIAL IVP ONE (08:30)
--- NOTE | 2017-05-02 08:48 | SOAPPROG ---
SOAP Progress Note Assessment/Plan: Assessment: Patient with persistent right empyema inadequately drained with IR tube CT shows a thick collection in the right chest Afebrile presently/etiology unclear Will need VATS decortication Plan: Arrange VATS decortication/risks and options fully discussed/will discuss with Dr. Moss 04/30/17 14:06 05/02/17 08:46 VS STABLE/ AFEBRILE/ WOUND OK/ SMALL AIR LEAK/ MODERATE CT DRAINAGE/ UO GOOD/ HCT 29/ CHEM OK/ OVERALL STABLE/ CXR WELL EXPANDED PLAN WEAN OFF VENT, CONTINUE CT SUCTION Objective: Vital Signs Temp Pulse Resp BP Pulse Ox 35.9 C L 72 16 105/49 L 98 05/02/17 07:00 05/02/17 08:00 05/02/17 08:00 05/02/17 08:00 05/02/17 08:00 Microbiology 05/01/17 16:36 Gram Stain - Final Other - Tissue 05/01/17 16:17 Gram Stain - Final Other - Eswab 05/01/17 16:51 Gram Stain - Final Other - Tissue Laboratory Results 05/02/17 05:30 05/02/17 05:30 05/01/17 05/02/17 05/03/17 05:59 05:59 05:59 Intake Total 4677 3465 Output Total 8690 2041 Balance 3545 1424 PT 17.8 SEC (12.0-15.0) H 05/01/17 20:15 INR 1.45 (0.83-1.16) H 05/01/17 20:15 ICD10 Worksheet Patient Problems: Problems Problem Status Onset Abnormal liver function test Acute Dyspnea Acute Pleural effusion Acute Chest pain Acute Congestive cardiac failure Acute
--- NOTE | 2017-05-02 08:57 | HOSPPROG ---
Hospitalist Progress Note Assessment/Plan: #Cardiac arrest: Occurred in setting of hemorrhage after removal of posterior chest tube s/p VATS. Brief CPR. -seems neurologically intact. #Acute hypoxemic respiratory failure: Required emergent thoracotomy and intubation / mechanical ventilation during VATS due to bleeding. Now on 40% FiO2. -plan to extubate today -CXR suggestive of possible volume overload, he'll receive lasix #Loculated pleural effusion: unclear etiology. S/P VATS, findings suggestive of empyema, lung now re-expanded. Pleural bx and Cx's pending. S/P prior thora , exudate by light's criteria and low pH. Cytology neg. Low suspicion for TB. Could be related to pancreatic lesion or biliary process. Connective tissue screening negative: RF, HOLLIS, TSH. CTA neg for PE. -2 chest tubes, management per surg, +air leak, significant output from CT #ABLA: Pt had severe chest wall bleeding with removal of chest tube during VATS , requiring brief CPR and massive transfusion. S/P TXA, 8u prbc's, 3u FFP, 1u plts. VSS, hgb stable this am. Note presenting hgb 10.5, serum iron low, TIBC suggestive of ACD. -follow h&h -consider iron infusion vs oral iron prior to dc #Cystic pancreatic lesion: tumor markers normal, pathology neg for malignant cells -EUS, s/p sphincterotomy #Elevated LFTs: trending down after sphincterotomy -cont to trend #Thyroid nodule -4 cm on U/S. Normal TSH. -needs FNA biopsy, likely ok to pursue as outpt #Atrial fibrillation: Chads-vasc 3. rate-controlled on Sotalol, stroke prevention with pradaxa, which has been held for procedures (last dose 04/27) -holding labetalol due to low bp -cont to hold pradaxa given acute bleeding event #Hypotension: resolved with NS bolus, resumption of IVF's -holding labetalol #Deconditioning: walking with RN #DVT ppx: Pradaxa held, SCD's for now #Disp: cont inpt / ICU, 30 minutes critical care Subjective: Pt intubated, though awake and following commands. Objective: Vital Signs Temp Pulse Resp BP Pulse Ox 35.9 C L 72 16 105/49 L 98 05/02/17 07:00 05/02/17 08:00 05/02/17 08:00 05/02/17 08:00 05/02/17 08:00 Microbiology 05/01/17 16:36 Gram Stain - Final Other - Tissue 05/01/17 16:17 Gram Stain - Final Other - Eswab 05/01/17 16:51 Gram Stain - Final Other - Tissue Laboratory Results 05/02/17 05:30 05/02/17 05:30 05/01/17 05/02/17 05/03/17 05:59 05:59 05:59 Intake Total 4693 3465 Output Total 1148 2041 Balance 3545 1424 PT 17.8 SEC (12.0-15.0) H 05/01/17 20:15 INR 1.45 (0.83-1.16) H 05/01/17 20:15 - Physical Exam Constitutional: no apparent distress Eyes: PERRL Ears, Nose, Mouth, Throat: moist mucous membranes Cardiovascular: regular rate and rhythym Respiratory: no respiratory distress, inspiratory crackles Gastrointestinal: normoactive bowel sounds, soft, non-tender abdomen Skin: warm Musculoskeletal: full muscle strength Neurologic: AAOx3 Psychiatric: interacting appropriately ICD10 Worksheet Patient Problems: Problems Problem Status Onset Abnormal liver function test Acute Dyspnea Acute Pleural effusion Acute Chest pain Acute Congestive cardiac failure Acute
[2017-05-02] MEDS ORDERED: REGARDING ANTICOAG MISC SCH (09:00)
[2017-05-02] MEDS ORDERED: DC NARCS MISC SCH (09:00)
[2017-05-02 09:22] LABS: INR 1.43 (0.83-1.16); PROTIME(PATIENT) 17.6 SEC (12.0-15.0)
--- NOTE | 2017-05-02 09:49 | PDINTPN ---
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 Initially seen at [facility] 04/16/17 without obvious cause, though there was blunting of the right CPA. D-dimer was negative and he was on pradaxa at the time. He had elevated LFTs in a cholestatic pattern, but no clear etiology. He was dc'd home but returned 04/22 with increasing SOB and was found to have a significant increase in right pleural effusion. A thoracentesis showed a non- specific exudate with 46,000 RBCs, and a pH of 7.1. However, cultures were negative and he had no evidence of PNA. A large bore chest tube was placed, but became dislodged, so another tube as placed 04/29 with some, but inadequate drainage. * Cardiac arrest- details unknown at this time, but patient without apparent sequelaue. Will re-evaluate once extubated. * Acute respiratory failure with hypoxia- minimal vent settings and weaned well this AM. Planing extubation now. * Vent day#1- weaned on CPAP/PS as described. * Pleural effusion- (right) presumed empyema based on pH alone though no concomitant PNA, and gram stain negative. Now fully evacuated with VATS. Await pleural biopsy results. No PE on CTA. Serology negative (HOLLIS, ANCA, RF). * PTX- s/p VATS. Continue suction; daily CXR. * LFTS- initially with cholestatic physiology and underwent ERCP/sphincterotomy followed by reduction in TB from 5 to 1.0 and AP from [address] without obvious cause. Pancreatic cyst drained and non-malignant. * afib- controlled on sotalol * * critical care time 45 minutes 05/02/17 09:50 Subjective: VATS complicated by severe bleeding at time of initial chest tube removal. Apparently code called and brief CPR. Objective: Vital Signs Temp Pulse Resp BP Pulse Ox 35.9 C L 72 18 105/49 L 98 05/02/17 07:00 05/02/17 08:37 05/02/17 08:37 05/02/17 08:00 05/02/17 08:37 Microbiology 05/01/17 16:36 Gram Stain - Final Other - Tissue 05/01/17 16:17 Gram Stain - Final Other - Eswab 05/01/17 16:51 Gram Stain - Final Other - Tissue Laboratory Results 05/02/17 05:30 05/02/17 05:30 05/01/17 05/02/17 05/03/17 05:59 05:59 05:59 Intake Total 4693 3465 Output Total 1148 2041 Balance 3545 1424 PT 17.6 SEC (12.0-15.0) H 05/02/17 09:07 INR 1.43 (0.83-1.16) H 05/02/17 09:07 Physical Exam - Physical Exam General Appearance: no apparent distress, other (sedated) EENT: PERRL/EOMI, ET tube Neck: supple Respiratory: decreased breath sounds, rales (few), No respiratory distress, No accessory muscle use Cardiac/Chest: irregularly irregular, No edema Abdomen: non-tender, soft, No distended Skin: normal color, warm/dry, No cyanosis Lymphatic: no adenopathy Extremities: No pedal edema Neuro/Psych: alert, normal mood/affect, other (vent) ICD10 Worksheet Patient Problems: Problems Problem Status Onset Abnormal liver function test Acute Dyspnea Acute Pleural effusion Acute Chest pain Acute Congestive cardiac failure Acute
[2017-05-02] MEDS: ERTAPENEM 1 GM VIAL IV SCH (10:11)
--- NOTE | 2017-05-02 10:25 | CPEKG ---
Heart Rate: 101 RR Interval: 594 P-R Interval: 172 QRSD Interval: 94 QT Interval: 248 QTC Interval: 322 P [place]: 25 QRS [place]: -64 EKG Severity - ABNORMAL ECG - EKG Impression: A paced V sensed rhythm, PAC followed by A-V DUAL-PACED COMPLEXES Electronically Signed By: Morgan Blas 02-May-2017 17:03:46
[2017-05-02] MEDS: DULoxetine 60 MG CAP PO SCH (13:53)
[2017-05-02] MEDS: SOTALOL HCL 80 MG TAB PO SCH ×2 (13:53→20:22)
--- NOTE | 2017-05-02 15:23 | POSTANESTH ---
Post Anesthetic Evaluation Cardiovascular Status: Similar to Pre-Op Cond, Other, See Comment (SP Massive blood transfusion. Hgb 10.8 Plts 270) Respiratory Status: Tx Decrease in SpO2 (C), Other, See Comment (Chest tube reveals air leak. Pt extubated this am. States pain 3/10) Level of Consciousness/Mental Status: Can Participate in Eval, Alert and Oriented (Oriented to person, place, date.) Pain Control: Adequate, Prn Tx Ordered Nausea/Vomiting Control: Adequate, Prn Tx Ordered Complications Possibly Related to Anesthesia: Other, See Comments (Epidural catheter exposed to bed linen. No redness. Dc intact. Extensive blood tranfusion)
--- NOTE | 2017-05-02 15:31 | ASMTCMCOM ---
CM Note CM Note Notes: Patient had severe chest wall bleeding with removal of chest tube during VATS, requiring brief CPR and massive transfusion. D/C plan has been home independent. This may change in light of recent complications. CM continue to monitor for any d/c needs. Date Signed: 05/02/2017 03:30 PM Electronically Signed By:Tamika Elmore LCSW
[2017-05-02] MEDS: OXYCODONE/APAP 5/325 TAB PO PRN (17:42)
--- NOTE | 2017-05-02 19:29 | SOAPPROG ---
SOAP Progress Note Assessment/Plan: Assessment: Patient with persistent right empyema inadequately drained with IR tube CT shows a thick collection in the right chest Afebrile presently/etiology unclear Will need VATS decortication Plan: Arrange VATS decortication/risks and options fully discussed/will discuss with Dr. Moss 04/30/17 14:06 05/02/17 08:46 VS STABLE/ AFEBRILE/ WOUND OK/ SMALL AIR LEAK/ MODERATE CT DRAINAGE/ UO GOOD/ HCT 29/ CHEM OK/ OVERALL STABLE/ CXR WELL EXPANDED PLAN WEAN OFF VENT, CONTINUE CT SUCTION 05/02/17 19:28 Stable tonight, afebrile, minimal air leak, moderate chest tube drainage, alert oriented and fully responsive off ventilator, lab stable Objective: Vital Signs Temp Pulse Resp BP Pulse Ox 35.9 C L 91 24 H 108/58 L 94 05/02/17 07:00 05/02/17 19:00 05/02/17 18:00 05/02/17 19:00 05/02/17 18:00 Microbiology 05/01/17 16:36 Mycobacterial Smear (JINA) - Final Other - Tissue 05/01/17 16:51 Mycobacterial Smear (JINA) - Final Other - Tissue 05/01/17 16:17 Gram Stain - Final Other - Eswab 05/01/17 16:51 Gram Stain - Final Other - Tissue 05/01/17 16:36 Gram Stain - Final Other - Tissue Laboratory Results 05/02/17 05:30 05/02/17 05:30 05/01/17 05/02/17 05/03/17 05:59 05:59 05:59 Intake Total 4693 3465 1527.0 Output Total 1148 2041 1790 Balance 3545 1424 -263.0 PT 17.6 SEC (12.0-15.0) H 05/02/17 09:07 INR 1.43 (0.83-1.16) H 05/02/17 09:07 ICD10 Worksheet Patient Problems: Problems Problem Status Onset Abnormal liver function test Acute Dyspnea Acute Pleural effusion Acute Chest pain Acute Congestive cardiac failure Acute
[2017-05-02] MEDS: ALLOPURINOL 300 MG TAB PO SCH (20:22)
[2017-05-02] MEDS: ATORVASTATIN CALCIUM 20 MG TAB PO SCH (20:23)
[2017-05-03] MEDS: OXYCODONE/APAP 5/325 TAB PO PRN ×4 (00:29→19:45)
[2017-05-03 06:26] LABS: PLATELET COUNT 290 10^3/uL (150-400)
[2017-05-03] MEDS: ERTAPENEM 1 GM VIAL IV SCH (08:38)
[2017-05-03] MEDS: SOTALOL HCL 80 MG TAB PO SCH ×2 (08:55→19:45)
[2017-05-03] MEDS: DULoxetine 60 MG CAP PO SCH (08:55)
--- NOTE | 2017-05-03 09:24 | HOSPPROG ---
Hospitalist Progress Note Assessment/Plan: #Cardiac arrest 05/01: Occurred in setting of hemorrhage after removal of posterior chest tube s/p VATS. Brief CPR. -neurologically intact #Acute hypoxemic respiratory failure: Required emergent thoracotomy and intubation / mechanical ventilation during VATS due to bleeding. Extubated . -CXR improved today s/p lasix #Loculated pleural effusion: unclear etiology. S/P VATS, findings suggestive of empyema, lung now re-expanded. Pleural bx and Cx's pending, no orgs on GS. S/P prior thora, exudate by light's criteria and low pH. Cytology neg. Low suspicion for TB. Could be related to pancreatic lesion or biliary process. Connective tissue screening negative: RF, HOLLIS, TSH. CTA neg for PE. -2 chest tubes, management per surg, +air leak, significant output from CT -On Ertapenem #ABLA: Pt had severe chest wall bleeding with removal of chest tube during VATS , requiring brief CPR and massive transfusion. S/P TXA, 8u prbc's, 3u FFP, 1u plts. VSS, hgb stable this am. Note presenting hgb 10.5, serum iron low, TIBC suggestive of ACD. -follow h&h -consider iron infusion vs oral iron prior to dc #Cystic pancreatic lesion: tumor markers normal, pathology neg for malignant cells -EUS, s/p sphincterotomy #Elevated LFTs: trending down after sphincterotomy -cont to trend #Thyroid nodule -4 cm on U/S. Normal TSH. -needs FNA biopsy, likely can pursue as outpt #Atrial fibrillation: Chads-vasc 3, 4% annual stroke risk. rate-controlled on Sotalol, stroke prevention with pradaxa, which has been held for procedures ( last dose 04/27). Pt reluctant to resume this. -holding labetalol due to low bp -cont to hold pradaxa given acute bleeding event #Hypotension: resolved with NS bolus, resumption of IVF's -holding labetalol #Deconditioning: ambulating, cont PT/OT #DVT ppx: Pradaxa held, SCD's for now #Disp: cont inpt, can likely transfer back to floor today Subjective: Pt up in chair, c/o some pain from chest tubes. +productive cough. No CP or SOB at rest. No fevers. No abdominal pain, N/V. Objective: Vital Signs Temp Pulse Resp BP Pulse Ox 36.4 C 86 20 98/60 L 97 05/03/17 08:00 05/03/17 08:55 05/03/17 08:00 05/03/17 08:55 05/03/17 08:00 Microbiology 05/01/17 16:36 Mycobacterial Smear (JINA) - Final Other - Tissue 05/01/17 16:51 Mycobacterial Smear (JINA) - Final Other - Tissue 05/01/17 16:17 Gram Stain - Final Other - Eswab 05/01/17 16:51 Gram Stain - Final Other - Tissue 05/01/17 16:36 Gram Stain - Final Other - Tissue Laboratory Results 05/03/17 06:15 05/03/17 06:15 05/02/17 05/03/17 05/04/17 05:59 05:59 05:59 Intake Total 3465 1927.0 Output Total 2041 2470 Balance 1424 -543.0 PT 17.6 SEC (12.0-15.0) H 05/02/17 09:07 INR 1.43 (0.83-1.16) H 05/02/17 09:07 - Physical Exam Constitutional: no apparent distress Eyes: PERRL Ears, Nose, Mouth, Throat: moist mucous membranes Cardiovascular: regular rate and rhythym Respiratory: no respiratory distress, inspiratory crackles Gastrointestinal: normoactive bowel sounds, soft, non-tender abdomen Skin: warm Musculoskeletal: full muscle strength Neurologic: AAOx3 Psychiatric: interacting appropriately ICD10 Worksheet Patient Problems: Problems Problem Status Onset Abnormal liver function test Acute Dyspnea Acute Pleural effusion Acute Chest pain Acute Congestive cardiac failure Acute
--- NOTE | 2017-05-03 12:00 | SOAPPROG ---
SOAP Progress Note Assessment/Plan: Assessment: 81 yo s/p R decortication Had thoracotomy after previous chest tube pulled in OR Doing very well No air leak SDU Will pull chest tube when less than 150 cc out/24 hours S: Sore but feeling well O: Sitting up in chair Dressing cdi No air leak 500/24 hours Lungs surprising clear regular rate Plan: 05/03/17 11:58 Objective: Vital Signs Temp Pulse Resp BP Pulse Ox 36.4 C 84 21 H 107/54 L 97 05/03/17 08:00 05/03/17 10:00 05/03/17 10:00 05/03/17 10:00 05/03/17 10:00 Microbiology 05/01/17 16:36 Mycobacterial Smear (JINA) - Final Other - Tissue 05/01/17 16:51 Mycobacterial Smear (JINA) - Final Other - Tissue 05/01/17 16:17 Gram Stain - Final Other - Eswab 05/01/17 16:51 Gram Stain - Final Other - Tissue 05/01/17 16:36 Gram Stain - Final Other - Tissue Laboratory Results 05/03/17 06:15 05/03/17 06:15 05/02/17 05/03/17 05/04/17 05:59 05:59 05:59 Intake Total 3465 1927.0 Output Total 2041 5440 90 Balance 1424 -543.0 -90 PT 17.6 SEC (12.0-15.0) H 05/02/17 09:07 INR 1.43 (0.83-1.16) H 05/02/17 09:07 ICD10 Worksheet Patient Problems: Problems Problem Status Onset Abnormal liver function test Acute Dyspnea Acute Pleural effusion Acute Chest pain Acute Congestive cardiac failure Acute
--- NOTE | 2017-05-03 12:33 | PDINTPN ---
Government Relations Manager Progress Note Assessment/Plan: Assessment: 81 M with afib and PPM developed sudden onset CP, SOB after recent trip to [place]. Initially seen at [facility] 04/16/17 without obvious cause, though there was blunting of the right CPA. D-dimer was negative and he was on pradaxa at the time. He had elevated LFTs in a cholestatic pattern, but no clear etiology. He was dc'd home but returned 04/22 with increasing SOB and was found to have a significant increase in right pleural effusion. A thoracentesis showed a non- specific exudate with 46,000 RBCs, and a pH of 7.1. However, cultures were negative and he had no evidence of PNA. A large bore chest tube was placed, but became dislodged, so another tube as placed 04/29 with some, but inadequate drainage. Underwent VATS 05/01 with decortication. Extensive chest wall bleeding from removal of small-bore CT and brief CPR * Cardiac arrest- details unknown at this time, but patient without apparent sequelaue. * Acute respiratory failure with hypoxia- Extubated 05/02. On O2@ 1.5 liters/ minute now. * Pleural effusion- (right) presumed empyema based on pH alone though no concomitant PNA, and gram stain negative. Now fully evacuated with VATS. Await pleural biopsy results. No PE on CTA. Serology negative (HOLLIS, ANCA, RF). * PTX- s/p VATS. Continue suction; daily CXR. * LFTS- initially with cholestatic physiology and underwent ERCP/sphincterotomy followed by reduction in TB from 5 to 1.0 and AP from [address] without obvious cause. Pancreatic cyst drained and non-malignant. * afib- controlled on sotalol Plan: D/C Munoz. Pain control. Bowel regimen. Tx to M/S. 05/03/17 12:30 05/03/17 12:31 Subjective: Pain control fairly good. Still some cough with scant thick sputum. No BM. Slept poorly due to cough. Denies dyspnea. Objective: Vital Signs Temp Pulse Resp BP Pulse Ox 36.4 C 89 19 99/61 L 100 05/03/17 08:00 05/03/17 12:00 05/03/17 12:00 05/03/17 12:00 05/03/17 12:00 Microbiology 05/01/17 16:51 Gram Stain - Final Other - Tissue 05/01/17 16:36 Gram Stain - Final Other - Tissue 05/01/17 16:17 Gram Stain - Final Other - Eswab 05/01/17 16:36 Mycobacterial Smear (JINA) - Final Other - Tissue 05/01/17 16:51 Mycobacterial Smear (JINA) - Final Other - Tissue Laboratory Results 05/03/17 06:15 05/03/17 06:15 05/02/17 05/03/17 05/04/17 05:59 05:59 05:59 Intake Total 3465 1927.0 Output Total 2041 2470 90 Balance 1424 -543.0 -90 PT 17.6 SEC (12.0-15.0) H 05/02/17 09:07 INR 1.43 (0.83-1.16) H 05/02/17 09:07 CXR: Stable infiltrates/pleural changes on right. Images reviewed by me. Physical Exam - Physical Exam General Appearance: alert, no apparent distress EENT: normal ENT inspection Neck: normal inspection Respiratory: crackles (right) Cardiac/Chest: regular rate, rhythm, No edema Abdomen: normal bowel sounds, non-tender, soft Skin: normal color, warm/dry Extremities: normal inspection Neuro/Psych: alert, normal mood/affect, oriented x 3 ICD10 Worksheet Patient Problems: Problems Problem Status Onset Abnormal liver function test Acute Dyspnea Acute Pleural effusion Acute Chest pain Acute Congestive cardiac failure Acute
[2017-05-03] MEDS ORDERED: POLYETHYLENE GLYCOL 3350 17 GM PKT PO PRN (12:37)
[2017-05-03] MEDS ORDERED: LACTULOSE 20 GM/30 ML UDCUP PO PRN (12:37)
[2017-05-03] MEDS ORDERED: MAGNESIUM HYDROXIDE 30 ML UDCUP PO PRN (12:37)
[2017-05-03] MEDS ORDERED: BISACODYL 10 MG SUPP PR PRN (12:37)
--- NOTE | 2017-05-03 16:55 | ASMTCMCOM ---
CM Note CM Note Notes: PT recommending home care. Spoke with pt and his family and provided blue book for [facility] [place] as they live in [place]. Pt is hoping he will continue to improve and not need anything at home. He is transferring to med surg when a bed is available. Date Signed: 05/03/2017 04:54 PM Electronically Signed By:FRANCIS Hernández
[2017-05-03] MEDS: ATORVASTATIN CALCIUM 20 MG TAB PO SCH (19:45)
[2017-05-03] MEDS: ALLOPURINOL 300 MG TAB PO SCH (19:46)
[2017-05-03] MEDS: SENNOSIDES/DOCUSATE SODIUM TAB PO SCH (19:46)
[2017-05-04 04:12] LABS: PLATELET COUNT 259 10^3/uL (150-400)
--- NOTE | 2017-05-04 08:43 | HOSPPROG ---
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 Now S/P VATS which was complicated by severe bleeding and cardiac arrest. #Cardiac arrest 05/01: Occurred in setting of hemorrhage after removal of posterior chest tube s/p VATS. Brief CPR. -neurologically intact -check echo #Acute hypoxemic respiratory failure: 4 LPM -> 1 LPM. Required emergent thoracotomy and intubation / mechanical ventilation ater VATS due to bleeding. Extubated 05/02. -CXR improved s/p lasix -pulmonary hygiene, flutter valve #Loculated pleural effusion: unclear etiology. Findings suggestive of empyema but no PNA, lung now re-expanded s/p VATS. S/P prior thora, exudate by light's criteria and low pH. Cytology neg. Low suspicion for TB. Could be related to pancreatic lesion or biliary process. -Connective tissue screening negative: RF, HOLLIS, ANCA, TSH. -CTA neg for PE -Follow up pleural bx and Cx's -2 chest tubes, management per surg, +air leak, output decreasing -On Ertapenem #ABLA: Pt had severe chest wall bleeding with removal of chest tube during VATS , requiring brief CPR and massive transfusion. S/P TXA, 8u prbc's, 3u FFP, 1u plts. VSS, hgb stable this am. Note presenting hgb 10.5, serum iron low, TIBC suggestive of ACD. -follow h&h -consider iron infusion vs oral iron prior to dc #Cystic pancreatic lesion: tumor markers normal, pathology neg for malignant cells -S/P EUS, s/p sphincterotomy #Elevated LFTs: Unclear etiology of cholestasis, ?medication induced. -LFT's trending down after sphincterotomy #Thyroid nodule -4 cm on U/S. Normal TSH. -needs FNA biopsy, could pursue as outpt #Atrial fibrillation: Chads-vasc 3, 4% annual stroke risk. rate-controlled on Sotalol, stroke prevention with pradaxa, which has been held for procedures ( last dose 04/27). Pt reluctant to resume this. -cont to hold pradaxa given acute bleeding event #Hypotension: resolved with NS bolus, resumption of IVF's -holding labetalol #Deconditioning: ambulating, cont PT/OT #DVT ppx: Pradaxa held, SCD's for now #Disp: cont inpt Subjective: Pt doing ok, some pain with movement, up to 7/10. Coughing some. No fevers. Denies SOB. Eating fairly well. Ambulating. In good spirits. Objective: Vital Signs Temp Pulse Resp BP Pulse Ox 36.6 C 103 H 16 118/90 H 92 05/04/17 07:13 05/04/17 07:13 05/04/17 07:13 05/04/17 07:13 05/04/17 07:13 Microbiology 05/01/17 16:51 Gram Stain - Final Other - Tissue 05/01/17 16:36 Gram Stain - Final Other - Tissue 05/01/17 16:17 Gram Stain - Final Other - Eswab Laboratory Results 05/04/17 03:34 05/04/17 03:34 05/03/17 05/04/17 05/05/17 05:59 05:59 05:59 Intake Total 1927.0 1750 Output Total 2470 540 150 Balance -543.0 1210 -150 PT 17.6 SEC (12.0-15.0) H 05/02/17 09:07 INR 1.43 (0.83-1.16) H 05/02/17 09:07 - Physical Exam Constitutional: no apparent distress Eyes: PERRL Ears, Nose, Mouth, Throat: moist mucous membranes Cardiovascular: regular rate and rhythym Respiratory: no respiratory distress, inspiratory crackles Gastrointestinal: normoactive bowel sounds, soft, non-tender abdomen Skin: warm Musculoskeletal: full muscle strength Neurologic: AAOx3 Psychiatric: interacting appropriately ICD10 Worksheet Patient Problems: Problems Problem Status Onset Chest pain Acute Congestive cardiac failure Acute Pleural effusion Acute Abnormal liver function test Acute Dyspnea Acute
--- NOTE | 2017-05-04 10:21 | ASMTCMCOM ---
CM Note CM Note Notes: 05/04/2017 Case Management Note Met w/pt, Bekah [phone] and both sons to discuss need for home care. Pt is agreeable to home care for a short time. Faxed referral to [facility] after discussing options with family. Case Management d/c poc: [facility] pending acceptance by agency. Case Management to follow. Date Signed: 05/04/2017 10:21 AM Electronically Signed By:Sherron Saenz RN
[2017-05-04] MEDS: SENNOSIDES/DOCUSATE SODIUM TAB PO SCH ×2 (11:19→23:18)
[2017-05-04] MEDS: DULoxetine 60 MG CAP PO SCH (11:20)
[2017-05-04] MEDS: SOTALOL HCL 80 MG TAB PO SCH ×2 (11:20→23:19)
[2017-05-04] MEDS: ERTAPENEM 1 GM VIAL IV SCH (11:53)
--- NOTE | 2017-05-04 12:48 | GOP ---
[f rep st] OPERATIVE REPORT DATE OF OPERATION: 05/01/2017 SURGEON: Ruy Zamora MD PREOPERATIVE DIAGNOSIS: Empyema and entrapment of the right lower lobe. POSTOPERATIVE DIAGNOSIS: Empyema and entrapment of the right lower lobe. PROCEDURE PERFORMED: VATS assisted empyema drainage and decortication of the right lower lobe. FINDINGS: Patient was found to have an entrapped right lower lobe with a thick fibrinous rind and so me cloudy peritoneal fluid and some old blood entrapping that area. The right diaphragm was pushed u p quite high. The upper lobe and middle lobe were relatively free. ESTIMATED BLOOD LOSS: Less than 300 cc. DESCRIPTION OF PROCEDURE: Patient was taken to the operating room where he received a satisfactory g eneral endotracheal anesthesia by Dr. Saenz. He was placed in the left lateral decubitus position, prepped and draped in usual sterile fashion with a double-lumen endotracheal tube and art line monito ring. A short incision was made high in the chest in the anterior axillary line in the 4th intercost al space. A trocar was introduced. Thoracoscope was introduced. However, there was absolutely zero visibility. No lung tissue could be identified. A thick rind around the chest. A fair amount of f luid was suctioned out at that point, improving the visibility but still no sensible anatomy could be discerned. At that point, a mini thoracotomy was made in the 6th intercostal space, dividing the mu scles with electrocautery and entering the 6th intercostal space which entered into the empyema cavit y. This was suctioned clear directly and a large amount of liquid gelatinous material was removed. The incision was somewhat enlarged and then a decortication was done of the fibrinous entrapment of t he right lower lobe until that lung was almost fully expanded. Specimens were sent for culture and f or histology. The posterior chest tube that had been placed in IR was well visualized and cleared. Hemostasis was obtained. The wound was irrigated and then it was elected to close the chest. #1 ryl pericostal sutures were used. Drilling a hole in the inferior rib, two 28-Macedonian chest tubes wer e brought in through separate stab incisions, 1 placed posteriorly and 1 placed anteriorly. It shoul d be noted that the entire lung was freed up circumferentially in all directions. As we were closing the chest after the ribs have been reapproximated, the muscles were closed with running 0 Vicryl sut ures in layers. The posterior chest tube was removed. There was some bleeding from the skin edges w hich was controlled with the mattress 2-0 silk suture. The patient tolerated procedure quite well. /[id number]/MODL
--- NOTE | 2017-05-04 12:50 | SOAPPROG ---
SOAP Progress Note Assessment/Plan: Assessment: 81 yo s/p R decortication and thoracotomy Doing very well No air leak - chest tube to water seal SDU Will pull chest tube when less than 150 cc out/24 hours Added Guafenesin Flutter Valve Pulmonary Hygiene S: Sore but feeling well O: Sitting up in chair Dressing cdi No air leak Lungs surprising clear regular rate Plan: 05/03/17 11:58 05/04/17 12:49 Objective: Vital Signs Temp Pulse Resp BP Pulse Ox 36.9 C 75 18 128/84 H 95 05/04/17 11:58 05/04/17 11:58 05/04/17 11:58 05/04/17 11:58 05/04/17 11:58 Microbiology 05/01/17 16:51 Gram Stain - Final Other - Tissue 05/01/17 16:36 Gram Stain - Final Other - Tissue 05/01/17 16:17 Gram Stain - Final Other - Eswab Laboratory Results 05/04/17 03:34 05/04/17 03:34 05/03/17 05/04/17 05/05/17 05:59 05:59 05:59 Intake Total 1927.0 1750 Output Total 2470 540 150 Balance -543.0 1210 -150 PT 17.6 SEC (12.0-15.0) H 05/02/17 09:07 INR 1.43 (0.83-1.16) H 05/02/17 09:07 ICD10 Worksheet Patient Problems: Problems Problem Status Onset Abnormal liver function test Acute Dyspnea Acute Pleural effusion Acute Chest pain Acute Congestive cardiac failure Acute
--- NOTE | 2017-05-04 13:12 | GOP ---
[f rep st] OPERATIVE REPORT DATE OF OPERATION: 05/01/2017 SURGEON: Ruy Zamora MD COTTON INSPECTOR: Dr. Issa. ANESTHESIOLOGIST: Dr. Saenz. He was taken to the recovery room in satisfactory condition, but still intubated. PREOPERATIVE DIAGNOSIS: hemothorax POSTOPERATIVE DIAGNOSIS: bleeding posterior intercostal artery at site of old chest tube removal PROCEDURE PERFORMED: emergency anterolateral thoracotomy and ligation of intercostal bleeding artery FINDINGS: major hemorhage from post intercostal vessel INDICATIONS: The patient was in the operating room, finishing up his decortication, when he suddenly developed significant bleeding from his chest tubes and significant hypotension, requiring brief episode of cardiac massage. DESCRIPTION OF PROCEDURE: Patient was placed in the supine position. 800 or 900 cc of blood was evacuated from the chest tube which accumulated in a rapid fashion. The patient was transfused with 2 units of blood, restoring an adequate blood pressure. The right chest was prepped and draped again, and the old incision was opened, taking out the skin mansi and cutting the Vicryl sutures. The intercostal incision was expanded significantly, and a large retractor was placed in the chest. A fair amount of blood was evacuated from the chest and from the submuscular spaces. Eventually, a bleeding intercostal vessel was identified posteriorly, where the posterior chest tube had been removed, and the bleeding increased as the patient's blood pressure increased. The area was directly controlled with pressure. Adequate exposure was achieved , and patient was resuscitated to a stable blood pressure and situation. This intercostal vessel was then controlled with a series of hemoclips and electrocautery and some 3-0 Vicryl sutures. The space was then packed with some Sravani powder, and the wound was watched for several minutes, with no further bleeding and no significant accumulations after that. 2 new chest tubes were obtained and placed in similar positions, with 1 anterior, 1 posterior. They were both secured to the skin with 3-0 silk sutures, and the chest was closed in a similar manner using #1 Vicryl pericostal sutures placed through drill holes in the inferior rib. Muscles were closed in layers with a running 0 Vicryl suture. Wounds were infiltrated with 0.5% Marcaine. Subcu was closed with running 2-0 Vicryl, and the skin with skin mansi. The 2 chest tubes were secured. He tolerated the procedure well. Blood loss from that procedure was over 3 units of blood. Hemostasis was fully obtained. /[id number]/MODL MTDD
[2017-05-04] MEDS: OXYCODONE/APAP 5/325 TAB PO PRN (14:51)
[2017-05-04] MEDS: guaiFENesin 600 MG TAB.ER PO SCH ×2 (14:55→23:20)
--- NOTE | 2017-05-04 17:11 | ECHO ---
[email or web address] [address] [address] Main: [phone] Fax: Transthoracic Echocardiogram Name: JUAN JOSE GRIGGS MR#: [id number] Study Date: 05/04/2017 Study Time: 09:44 AM Date of : 1935 Age: 81 year(s) Height: 175.3 cm (69 in.) Weight: 93.44 kg (206 lb.) BSA: 2.09 m2 Gender: Male Examination: Echo Indication: Pacemaker, Atrial Fibrillation, Pleural Effusion Image Quality: Contrast: Requested by: Elizabeth Mendoza BP: 118 mmHg/90 mmHg Heart Rate: Rhythm: Pacemaker rhythm Indication: Pacemaker, Atrial Fibrillation, Pleural Effusion Procedure Staff Transfer Man: Mason Rudd RDCS Reading Physician: Kevin Walker MD Requesting Provider: Conclusions: Normal global systolic LV function. The ejection fraction is estimated to be 60-65 %. Normal RV function. There is a pacemaker lead noted in the right ventricle. Trivial mitral valve regurgitation. Minimal aortic cusp calcification is noted. Trivial tricuspid valve regurgitation. Measurements: Chambers Valvular Assessment AV/MV Valvular Assessment TV/PV Normal Normal Normal Name Value Range Name Value Range Name Value Range IVSd (2D): 0.8 cm (0.6 cm-1.1 AV Vmax: 1.28 m/s (1 m/s-1.7 TR Vmax: 3.43 mm/s ( - ) cm) m/s) TR PGmax: 47 mmHg ( - ) LVDd (2D): 4.2 cm (4.2 cm-5.9 AV maxP mmHg ( - ) syst. PAP: 52 mmHg ( - ) cm) LVOT Vmax: 0.78 m/s (0.7 m/s-1.1 PV Vmax: 1.13 m/s (0.6 m/s-0.9 LVDs (2D): 2.6 cm (2.1 cm-4 m/s) m/s) cm) MV E Vmax: 0.80 m/s ( - ) PV PGmax: 5 mmHg ( - ) LVPWd (2D): 1.1 cm (0.6 cm-1 cm) LVEF (BP): 69 % (>=55 %) EF Range: 60-65 % Continued Measurements: Chambers Valvular Assessment TV/PV Name Value Name Value LADs Lon.4 cm CVP (est.): 5 mmHg LA Area: 19.4 cm2 Patient: JUAN JOSE GRIGGS Study Date: 05/04/2017 Page 1 of 2 09:44 AM Findings: Left Ventricle: Normal size left ventricle. Normal global systolic LV function. The ejection fraction is estimated to be 60-65 %. The rhythm is atrial fibrillation with paced rhythm. There is LV dysschrony with overall normal ejection fraction estimated at 60-65%. Right Ventricle: Normal size right ventricle. Normal RV function. There is a pacemaker lead noted in the right ventricle. Left Atrium: The left atrium is normal in size. Right Atrium: The right atrium is normal in size. Mitral Valve: The mitral valve is normal in appearance and function. Trivial mitral valve regurgitation. Aortic Valve: Minimal aortic cusp calcification is noted. The aortic valve is tri-leaflet and functions normally. Tricuspid Valve: The tricuspid valve is normal in appearance and function. Trivial tricuspid valve regurgitation. Pulmonic Valve: The pulmonic valve is normal in appearance and function. Aorta: The aorta is normal. Pericardium: No pericardial effusion. (No Signature Object) Patient: JUAN JOSE GRIGGS Study Date: 05/04/2017 Page 2 of 2 09:44 AM [id number]
[2017-05-04] MEDS: ALLOPURINOL 300 MG TAB PO SCH (23:18)
[2017-05-04] MEDS: ATORVASTATIN CALCIUM 20 MG TAB PO SCH (23:19)
[2017-05-04] MEDS: DABIGATRAN ETEXILATE MESYL 150 MG CAP PO SCH (23:20)
[2017-05-05 04:23] LABS: PLATELET COUNT 282 10^3/uL (150-400)
--- NOTE | 2017-05-05 08:32 | SOAPPROG ---
SOAP Progress Note Assessment/Plan: Assessment/ Plan: 81 yo s/p R decortication and thoracotomy Seen with Dr. Zamora this morning. Doing very well. Afebrile. WBCs trending down. No air leak - chest tube to water seal. Chest tube drainage trending down. 175cc/24 hr. Plan to pull chest tube later today versus more likely tomorrow. Pulmonary Hygiene. Pradaxa restarted. On Invanz. PCU status. S: Sore but feeling well. Was up playing cards with visiting family/sons. No SOB. O: Sitting up in bed Dressing cdi No air leak regular rate 05/05/17 08:32 Objective: Vital Signs Temp Pulse Resp BP Pulse Ox 37.2 C 84 24 H 148/90 H 97 05/05/17 08:05 05/05/17 08:05 05/05/17 08:05 05/05/17 08:05 05/05/17 08:05 Microbiology 05/01/17 16:36 Gram Stain - Final Other - Tissue 05/01/17 16:51 Gram Stain - Final Other - Tissue 05/01/17 16:17 Gram Stain - Final Other - Eswab Laboratory Results 05/05/17 03:20 05/04/17 03:34 05/04/17 05/05/17 05/06/17 05:59 05:59 05:59 Intake Total 1750 300 Output Total 540 600 175 Balance 1210 -300 -175 PT 17.6 SEC (12.0-15.0) H 05/02/17 09:07 INR 1.43 (0.83-1.16) H 05/02/17 09:07 ICD10 Worksheet Patient Problems: Problems Problem Status Onset Abnormal liver function test Acute Dyspnea Acute Pleural effusion Acute Chest pain Acute Congestive cardiac failure Acute
[2017-05-05] MEDS: guaiFENesin 600 MG TAB.ER PO SCH ×2 (08:39→19:35)
[2017-05-05] MEDS: SOTALOL HCL 80 MG TAB PO SCH ×2 (08:40→19:37)
[2017-05-05] MEDS: DULoxetine 60 MG CAP PO SCH (08:40)
[2017-05-05] MEDS: SENNOSIDES/DOCUSATE SODIUM TAB PO SCH ×2 (08:41→19:35)
[2017-05-05] MEDS: DABIGATRAN ETEXILATE MESYL 150 MG CAP PO SCH ×2 (08:41→19:36)
[2017-05-05] MEDS: ERTAPENEM 1 GM VIAL IV SCH (08:42)
--- NOTE | 2017-05-05 12:30 | ASMTCMCOM ---
CM Note CM Note Notes: 05/05/2017 Case Management Note Met w/pt during rounds today as team discussed his case. Faxed updates to [facility] via [employer]. Case Management d/c poc: [facility] RN OT pending acceptance. Case Management to follow. Date Signed: 05/05/2017 12:29 PM Electronically Signed By:Sherron Saenz RN
--- NOTE | 2017-05-05 13:43 | HOSPPROG ---
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 Now S/P VATS which was complicated by severe bleeding and cardiac arrest. Cardiac arrest 05/01: Occurred in setting of hemorrhage after removal of posterior chest tube s/p VATS. Brief CPR. -neurologically intact Acute hypoxemic respiratory failure: 4 LPM -> 1 LPM. Required emergent thoracotomy and intubation / mechanical ventilation ater VATS due to bleeding. Extubated 05/02. CXR improved s/p lasix pulmonary hygiene, flutter valve Loculated pleural effusion: unclear etiology. Findings suggestive of empyema but no PNA, lung now re-expanded s/p VATS. S/P prior thora, exudate by light's criteria and low pH. Cytology neg. Low suspicion for TB. Could be related to pancreatic lesion or biliary process. Connective tissue screening negative: RF, HOLLIS, ANCA, TSH. CTA neg for PE Follow up pleural bx and Cx's neg thus far 2 chest tubes, management per surg, +air leak, output decreasing n Ertapenem ABLA: Pt had severe chest wall bleeding with removal of chest tube during VATS, requiring brief CPR and massive transfusion. S/P TXA, 8u prbc's, 3u FFP, 1u plts. VSS, hgb stable this am. Note presenting hgb 10.5, serum iron low, TIBC suggestive of ACD. hct stable Cystic pancreatic lesion: tumor markers normal, pathology neg for malignant cells S/P EUS, s/p sphincterotomy Elevated LFTs: Unclear etiology of cholestasis, ?medication induced. LFT's trending down after sphincterotomy Thyroid nodule 4 cm on U/S. Normal TSH. needs FNA biopsy, could pursue as outpt Atrial fibrillation: Chads-vasc 3, 4% annual stroke risk. rate-controlled on Sotalol, stroke prevention with pradaxa, which has been held for procedures ( last dose 04/27). Pt reluctant to resume this. cont to hold pradaxa given acute bleeding event Hypotension: resolved with NS bolus, resumption of IVF's olding labetalol Deconditioning: ambulating, cont PT/OT Subjective: case d/w dr saravia. tele: no events Objective: Vital Signs Temp Pulse Resp BP Pulse Ox 36.9 C 83 24 H 131/82 H 98 05/05/17 11:33 05/05/17 11:33 05/05/17 11:33 05/05/17 11:33 05/05/17 11:33 Microbiology 05/01/17 16:51 Gram Stain - Final Other - Tissue 05/01/17 16:36 Gram Stain - Final Other - Tissue 05/01/17 16:17 Gram Stain - Final Other - Eswab Laboratory Results 05/05/17 03:20 05/04/17 03:34 05/04/17 05/05/17 05/06/17 05:59 05:59 05:59 Intake Total 1750 300 Output Total 540 600 426 Balance 1210 -300 -426 PT 17.6 SEC (12.0-15.0) H 05/02/17 09:07 INR 1.43 (0.83-1.16) H 05/02/17 09:07 - Physical Exam Constitutional: no apparent distress, appears nourished Eyes: PERRL, anicteric sclera Ears, Nose, Mouth, Throat: moist mucous membranes, hearing normal Cardiovascular: regular rate and rhythym, no murmur, rub, or gallop Respiratory: other (rhonchorous w pleural rub) Gastrointestinal: normoactive bowel sounds, soft, non-tender abdomen Genitourinary: no bladder fullness, No renteria in urethra Skin: warm Musculoskeletal: full muscle strength Neurologic: AAOx3 ICD10 Worksheet Patient Problems: Problems Problem Status Onset Abnormal liver function test Acute Dyspnea Acute Pleural effusion Acute Chest pain Acute Congestive cardiac failure Acute
[2017-05-05] MEDS: ALLOPURINOL 300 MG TAB PO SCH (19:36)
[2017-05-05] MEDS: ATORVASTATIN CALCIUM 20 MG TAB PO SCH (19:36)
[2017-05-06] MEDS: DABIGATRAN ETEXILATE MESYL 150 MG CAP PO SCH (09:01)
[2017-05-06] MEDS: guaiFENesin 600 MG TAB.ER PO SCH ×2 (09:01→21:25)
[2017-05-06] MEDS: DULoxetine 60 MG CAP PO SCH (09:01)
[2017-05-06] MEDS: ERTAPENEM 1 GM VIAL IV SCH (09:03)
[2017-05-06] MEDS: SOTALOL HCL 80 MG TAB PO SCH ×2 (09:03→21:24)
[2017-05-06] MEDS: SENNOSIDES/DOCUSATE SODIUM TAB PO SCH ×2 (09:04→21:25)
[2017-05-06] MEDS: ACETAMINOPHEN 325 MG TAB PO PRN ×2 (09:12→21:28)
--- NOTE | 2017-05-06 12:49 | SOAPPROG ---
SOAP Progress Note Assessment/Plan: Assessment/ Plan: 81 yo s/p R decortication and thoracotomy Doing well. Afebrile. WBCs trending down. No air leak, chest tube to water seal. Chest tube output <70cc/24 hours. Removed chest tubes without event just now. Repeat CXR later today. D/w'ed Dr. Zamora. Pulmonary Hygiene. Pradaxa restarted. On Invanz. PCU status. S: No SOB. Pain tolerable, worse with cough. O: Sitting up in bed No air leak No WOB +CTAL, R diminished BSs. regular rate 05/06/17 12:46 Objective: Vital Signs Temp Pulse Resp BP Pulse Ox 36.5 C 88 14 129/91 H 99 05/06/17 11:09 05/06/17 11:09 05/06/17 11:09 05/06/17 11:09 05/06/17 11:09 Microbiology 05/01/17 16:51 Mycobacterial Smear (JINA) - Final Other - Tissue 05/01/17 16:36 Mycobacterial Smear (JINA) - Final Other - Tissue 05/01/17 16:51 Gram Stain - Final Other - Tissue 05/01/17 16:36 Gram Stain - Final Other - Tissue 05/01/17 16:17 Gram Stain - Final Other - Eswab Laboratory Results 05/05/17 03:20 05/04/17 03:34 05/05/17 05/06/17 05/07/17 05:59 05:59 05:59 Intake Total 300 1400 700 Output Total 600 926 Balance -300 474 700 PT 17.6 SEC (12.0-15.0) H 05/02/17 09:07 INR 1.43 (0.83-1.16) H 05/02/17 09:07 ICD10 Worksheet Patient Problems: Problems Problem Status Onset Abnormal liver function test Acute Dyspnea Acute Pleural effusion Acute Chest pain Acute Congestive cardiac failure Acute
--- NOTE | 2017-05-06 15:23 | HOSPPROG ---
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 Now S/P VATS which was complicated by severe bleeding and cardiac arrest. Cardiac arrest 05/01: Occurred in setting of hemorrhage after removal of posterior chest tube s/p VATS. Brief CPR. -neurologically intact Acute hypoxemic respiratory failure: 4 LPM -> 1 LPM. Required emergent thoracotomy and intubation / mechanical ventilation ater VATS due to bleeding. Extubated 05/02. CXR improved s/p lasix pulmonary hygiene, flutter valve Loculated pleural effusion: unclear etiology. Findings suggestive of empyema but no PNA, lung now re-expanded s/p VATS. S/P prior thora, exudate by light's criteria and low pH. Cytology neg. Low suspicion for TB. Could be related to pancreatic lesion or biliary process. Connective tissue screening negative: RF, HOLLIS, ANCA, TSH. CTA neg for PE Follow up pleural bx and Cx's neg thus far chest tubes out day 07/14 ertapenem ABLA: Pt had severe chest wall bleeding with removal of chest tube during VATS, requiring brief CPR and massive transfusion. S/P TXA, 8u prbc's, 3u FFP, 1u plts. VSS, hgb stable this am. Note presenting hgb 10.5, serum iron low, TIBC suggestive of ACD. hct stable Cystic pancreatic lesion: tumor markers normal, pathology neg for malignant cells S/P EUS, s/p sphincterotomy Elevated LFTs: Unclear etiology of cholestasis, ?medication induced. LFT's trending down after sphincterotomy Thyroid nodule 4 cm on U/S. Normal TSH. needs FNA biopsy, could pursue as outpt Atrial fibrillation: Chads-vasc 3, 4% annual stroke risk. rate-controlled on Sotalol, stroke prevention with pradaxa, which has been held for procedures ( last dose 04/27). Pt reluctant to resume this. cont to hold pradaxa given acute bleeding event Hypotension: resolved with NS bolus, resumption of IVF's olding labetalol Deconditioning: ambulating, cont PT/OT Subjective: case d/w dr saravia Objective: Vital Signs Temp Pulse Resp BP Pulse Ox 36.6 C 99 16 130/82 H 99 05/06/17 15:07 05/06/17 15:07 05/06/17 15:07 05/06/17 15:07 05/06/17 15:07 Microbiology 05/01/17 16:51 Mycobacterial Smear (JINA) - Final Other - Tissue 05/01/17 16:36 Mycobacterial Smear (JINA) - Final Other - Tissue 05/01/17 16:51 Gram Stain - Final Other - Tissue 05/01/17 16:36 Gram Stain - Final Other - Tissue 05/01/17 16:17 Gram Stain - Final Other - Eswab Laboratory Results 05/05/17 03:20 05/04/17 03:34 05/05/17 05/06/17 05/07/17 05:59 05:59 05:59 Intake Total 300 1400 700 Output Total 600 926 Balance -300 474 700 PT 17.6 SEC (12.0-15.0) H 05/02/17 09:07 INR 1.43 (0.83-1.16) H 05/02/17 09:07 - Physical Exam Constitutional: no apparent distress, appears nourished Eyes: PERRL, anicteric sclera Ears, Nose, Mouth, Throat: moist mucous membranes, hearing normal Cardiovascular: regular rate and rhythym, no murmur, rub, or gallop Respiratory: no respiratory distress, no rales or rhonchi Gastrointestinal: normoactive bowel sounds, soft, non-tender abdomen Genitourinary: no bladder fullness, no bladder tenderness Skin: warm, normal color Musculoskeletal: full muscle strength Neurologic: AAOx3 ICD10 Worksheet Patient Problems: Problems Problem Status Onset Abnormal liver function test Acute Dyspnea Acute Pleural effusion Acute Chest pain Acute Congestive cardiac failure Acute
[2017-05-06] MEDS: ATORVASTATIN CALCIUM 20 MG TAB PO SCH (21:24)
[2017-05-06] MEDS: ALLOPURINOL 300 MG TAB PO SCH (21:25)
[2017-05-07] MEDS: ERTAPENEM 1 GM VIAL IV SCH (08:30)
--- NOTE | 2017-05-07 09:27 | SOAPPROG ---
SOAP Progress Note Assessment/Plan: Assessment/ Plan: 81 yo s/p R decortication and thoracotomy CXR stable post chest tube removal. Continues to be afebrile. Doing well. US guided needle bx ordered for incidental L thyroid nodule seen on chest CT. Holding Pradaxa. D/w'ed Dr. Zamora, medicine, and RN. Pulmonary Hygiene. PCU status. Probable d/c tomorrow. Will get CXR in am. Will add f/u info to d/c plan. S: No SOB. Pain tolerable, worse with cough. O: Sitting up in bed lungs clear rrr wounds well dressed 05/07/17 09:24 Objective: Vital Signs Temp Pulse Resp BP Pulse Ox 37.1 C 106 H 10 L 151/90 H 96 05/07/17 07:29 05/07/17 07:29 05/07/17 07:29 05/07/17 07:29 05/07/17 07:29 Microbiology 05/01/17 16:51 Mycobacterial Smear (JINA) - Final Other - Tissue 05/01/17 16:36 Mycobacterial Smear (JINA) - Final Other - Tissue 05/01/17 16:51 Gram Stain - Final Other - Tissue 05/01/17 16:36 Gram Stain - Final Other - Tissue 05/01/17 16:17 Gram Stain - Final Other - Eswab Laboratory Results 05/05/17 03:20 05/04/17 03:34 05/06/17 05/07/17 05/08/17 05:59 05:59 05:59 Intake Total 1400 700 Output Total 926 600 Balance 474 100 PT 17.6 SEC (12.0-15.0) H 05/02/17 09:07 INR 1.43 (0.83-1.16) H 05/02/17 09:07 ICD10 Worksheet Patient Problems: Problems Problem Status Onset Abnormal liver function test Acute Dyspnea Acute Pleural effusion Acute Chest pain Acute Congestive cardiac failure Acute
[2017-05-07] MEDS: guaiFENesin 600 MG TAB.ER PO SCH ×2 (09:50→20:46)
[2017-05-07] MEDS: SOTALOL HCL 80 MG TAB PO SCH ×2 (09:50→20:47)
[2017-05-07] MEDS: ACETAMINOPHEN 325 MG TAB PO PRN ×2 (09:50→20:46)
[2017-05-07] MEDS: SENNOSIDES/DOCUSATE SODIUM TAB PO SCH ×2 (09:51→20:46)
[2017-05-07] MEDS: DULoxetine 60 MG CAP PO SCH (09:51)
--- NOTE | 2017-05-07 14:52 | ASMTCMCOM ---
CM Note CM Note Notes: Pts case reviewed in tx rounds. The plan remains the same. Pt will d/c with [facility], RN, PT, OT when medically stable. CM to notify [place] from [facility] from medically stable to d/c. CM available for changes. Plan: [facility], PT, OT, RN Date Signed: 05/07/2017 02:51 PM Electronically Signed By:BRAD Shi
--- NOTE | 2017-05-07 15:12 | HOSPPROG ---
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 Now S/P VATS which was complicated by severe bleeding and cardiac arrest. Cardiac arrest 05/01: Occurred in setting of hemorrhage after removal of posterior chest tube s/p VATS. Brief CPR. -neurologically intact Acute hypoxemic respiratory failure: 4 LPM -> 1 LPM. Required emergent thoracotomy and intubation / mechanical ventilation ater VATS due to bleeding. Extubated 05/02. CXR improved s/p lasix pulmonary hygiene, flutter valve Loculated pleural effusion: unclear etiology. Findings suggestive of empyema but no PNA, lung now re-expanded s/p VATS. S/P prior thora, exudate by light's criteria and low pH. Cytology neg. Low suspicion for TB. Could be related to pancreatic lesion or biliary process. Connective tissue screening negative: RF, HOLLIS, ANCA, TSH. CTA neg for PE Follow up pleural bx and Cx's neg thus far chest tubes out day 08/14 ertapenem ABLA: Pt had severe chest wall bleeding with removal of chest tube during VATS, requiring brief CPR and massive transfusion. S/P TXA, 8u prbc's, 3u FFP, 1u plts. VSS, hgb stable this am. Note presenting hgb 10.5, serum iron low, TIBC suggestive of ACD. hct stable Cystic pancreatic lesion: tumor markers normal, pathology neg for malignant cells S/P EUS, s/p sphincterotomy Elevated LFTs: Unclear etiology of cholestasis, ?medication induced. LFT's trending down after sphincterotomy Thyroid nodule 4 cm on U/S. Normal TSH. needs FNA biopsy, could pursue as outpt BIOPSY 05/08 Atrial fibrillation: Chads-vasc 3, 4% annual stroke risk. rate-controlled on Sotalol, stroke prevention with pradaxa, which has been held for procedures ( last dose 04/27). Pt reluctant to resume this. cont to hold pradaxa given acute bleeding event Hypotension: resolved with NS bolus, resumption of IVF's olding labetalol Deconditioning: ambulating, cont PT/OT Subjective: yesterday PM cxr w no pneumothorax (interp by me). case d/w froilan menon, gen surgery PA Objective: Vital Signs Temp Pulse Resp BP Pulse Ox 36.5 C 88 18 131/97 H 97 05/07/17 11:35 05/07/17 11:35 05/07/17 11:35 05/07/17 11:35 05/07/17 11:35 Microbiology 05/01/17 16:51 Gram Stain - Final Other - Tissue 05/01/17 16:36 Gram Stain - Final Other - Tissue 05/01/17 16:17 Gram Stain - Final Other - Eswab 05/01/17 16:51 Mycobacterial Smear (JINA) - Final Other - Tissue 05/01/17 16:36 Mycobacterial Smear (JINA) - Final Other - Tissue Laboratory Results 05/05/17 03:20 05/04/17 03:34 05/06/17 05/07/17 05/08/17 05:59 05:59 05:59 Intake Total 1400 700 Output Total 926 600 125 Balance 474 100 -125 PT 17.6 SEC (12.0-15.0) H 05/02/17 09:07 INR 1.43 (0.83-1.16) H 05/02/17 09:07 - Physical Exam Constitutional: no apparent distress, appears nourished Eyes: PERRL, anicteric sclera Ears, Nose, Mouth, Throat: moist mucous membranes, hearing normal Cardiovascular: regular rate and rhythym, no murmur, rub, or gallop Respiratory: no respiratory distress, no rales or rhonchi Gastrointestinal: normoactive bowel sounds, soft, non-tender abdomen Genitourinary: no bladder fullness, No renteria in urethra Skin: warm, normal color Musculoskeletal: full muscle strength Neurologic: AAOx3 ICD10 Worksheet Patient Problems: Problems Problem Status Onset Abnormal liver function test Acute Dyspnea Acute Pleural effusion Acute Chest pain Acute Congestive cardiac failure Acute
[2017-05-07] MEDS: ALLOPURINOL 300 MG TAB PO SCH (20:46)
[2017-05-07] MEDS: ATORVASTATIN CALCIUM 20 MG TAB PO SCH (20:46)
[2017-05-08 08:25] VITALS: RESP 18; O2SAT 98
[2017-05-08] MEDS ORDERED: LIDOCAINE 1% 300 MG/30 ML SDV ONE (08:30)
[2017-05-08] MEDS: ERTAPENEM 1 GM VIAL IV SCH (08:35)
[2017-05-08] MEDS: ACETAMINOPHEN 325 MG TAB PO PRN (08:49)
[2017-05-08] MEDS: DULoxetine 60 MG CAP PO SCH (08:50)
[2017-05-08] MEDS: SOTALOL HCL 80 MG TAB PO SCH (08:51)
[2017-05-08] MEDS: guaiFENesin 600 MG TAB.ER PO SCH (08:51)
[2017-05-08 10:58] VITALS: BP 152/80; PULSE 74; TEMP 98.5
[2017-05-08] MEDS: SENNOSIDES/DOCUSATE SODIUM TAB PO SCH (10:59)
--- NOTE | 2017-05-08 12:45 | PDHOMEO2F ---
Home Oxygen Face to Face Home Orders: I certify that a physician or a nurse practitioner or physician's life science research assistant has had a [id number] encounter with this patient on the date of this order due to the diagnosis listed, which relates to the primary reason the patient requires home oxygen. Alternative treatments have been tried, or considered, and deemed ineffective. It is anticipated that supplemental oxygen will result in improvement with treatment. Home oxygen qualifying diagnosis: empyema SpO2 on room air (%): 85 Frequency of home oxygen needed: continuous Home oxygen liters per minute: 1 Home oxygen delivery device: nasal cannula Concentrator: No E-tanks for mobility and back up: Yes If ordering portable O2, is the patient mobile in the home?: Yes I certify that, based on these findings, the home oxygen is medically necessary for this patient for the following length of time. Length of time home oxygen needed: 1 month
--- NOTE | 2017-05-08 12:54 | HOSPPROG ---
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 Now S/P VATS which was complicated by severe bleeding and cardiac arrest. Cardiac arrest 05/01: Occurred in setting of hemorrhage after removal of posterior chest tube s/p VATS. Brief CPR. -neurologically intact Acute hypoxemic respiratory failure: 4 LPM -> 1 LPM. Required emergent thoracotomy and intubation / mechanical ventilation ater VATS due to bleeding. Extubated 05/02. CXR improved s/p lasix pulmonary hygiene, flutter valve Loculated pleural effusion: unclear etiology. Findings suggestive of empyema but no PNA, lung now re-expanded s/p VATS. S/P prior thora, exudate by light's criteria and low pH. Cytology neg. Low suspicion for TB. Could be related to pancreatic lesion or biliary process. Connective tissue screening negative: RF, HOLLIS, ANCA, TSH. CTA neg for PE Follow up pleural bx and Cx's neg thus far chest tubes out day 08/14 ertapenem ABLA: Pt had severe chest wall bleeding with removal of chest tube during VATS, requiring brief CPR and massive transfusion. S/P TXA, 8u prbc's, 3u FFP, 1u plts. VSS, hgb stable this am. Note presenting hgb 10.5, serum iron low, TIBC suggestive of ACD. hct stable Cystic pancreatic lesion: tumor markers normal, pathology neg for malignant cells S/P EUS, s/p sphincterotomy Elevated LFTs: Unclear etiology of cholestasis, ?medication induced. LFT's trending down after sphincterotomy Thyroid nodule 4 cm on U/S. Normal TSH. needs FNA biopsy, could pursue as outpt BIOPSY 05/08 Atrial fibrillation: Chads-vasc 3, 4% annual stroke risk. rate-controlled on Sotalol, stroke prevention with pradaxa, which has been held for procedures ( last dose 04/27). Pt reluctant to resume this. cont to hold pradaxa given acute bleeding event Hypotension: resolved with NS bolus, resumption of IVF's olding labetalol Deconditioning: ambulating, cont PT/OT home today outpt follow up arranged > 30 minutes see dc summary Subjective: cxr w no pnx. feels well Objective: Vital Signs Temp Pulse Resp BP Pulse Ox 36.9 C 74 18 152/80 H 98 05/08/17 10:55 05/08/17 10:55 05/08/17 10:55 05/08/17 10:55 05/08/17 10:55 Microbiology 05/01/17 16:51 Gram Stain - Final Other - Tissue Anaerobic Culture - Final 05/01/17 16:36 Gram Stain - Final Other - Tissue Anaerobic Culture - Final 05/01/17 16:17 Gram Stain - Final Other - Eswab Anaerobic Culture - Final Laboratory Results 05/05/17 03:20 05/04/17 03:34 05/07/17 05/08/17 05/09/17 05:59 05:59 05:59 Intake Total 700 920 Output Total 600 575 75 Balance 100 345 -75 PT 17.6 SEC (12.0-15.0) H 05/02/17 09:07 INR 1.43 (0.83-1.16) H 05/02/17 09:07 - Physical Exam Constitutional: no apparent distress, appears nourished Eyes: PERRL, anicteric sclera Ears, Nose, Mouth, Throat: moist mucous membranes, hearing normal Cardiovascular: regular rate and rhythym, no murmur, rub, or gallop Respiratory: no respiratory distress, no rales or rhonchi Gastrointestinal: normoactive bowel sounds, soft, non-tender abdomen Genitourinary: no bladder fullness, No renteria in urethra Skin: warm, normal color Musculoskeletal: full muscle strength Neurologic: AAOx3, sensation intact bilaterally Psychiatric: interacting appropriately, not anxious ICD10 Worksheet Patient Problems: Problems Problem Status Onset Abnormal liver function test Acute Dyspnea Acute Pleural effusion Acute Chest pain Acute Congestive cardiac failure Acute
--- NOTE | 2017-05-08 12:56 | PDIAF ---
- Diagnosis Diagnosis: empyemea Code Status: Full Code - Medication Management Discharge Medications: Medications to Continue on Transfer Acetamn/Diphenhydramine 500/25 [Tylenol PM (*)] 1 each PO HS PRN 04/16/17 [Last Taken 04/22/17] Alendronate Sodium [Fosamax 70 MG (*)] 70 mg PO WE@0700 04/16/17 [Last Taken 09/24] Allopurinol [Allopurinol 300 MG (RX)] 300 mg PO HS 04/16/17 [Last Taken 04/21/17 ] Atorvastatin Calcium [Lipitor 20 mg (*)] 20 mg PO HS 04/16/17 [Last Taken ] DULoxetine [Cymbalta 60 MG (*)] 60 mg PO DAILY 04/16/17 [Last Taken 04/22/17] Dabigatran Etexilate Mesyl [Pradaxa 150 MG (*)] 150 mg PO BID 04/16/17 [Last Taken 04/22/17] Labetalol HCl [Trandate 200 mg (*)] 200 mg PO BID 04/16/17 [Last Taken 04/22/17] Sotalol HCl [Sotalol] 120 mg PO BID 04/16/17 [Last Taken 04/22/17] Polyethylene Glycol 3350 [Miralax 17 gm (*)] 17 gm PO DAILY PRN pkt 05/08/17 [ Last Taken Unknown] guaiFENesin [Mucinex 600 MG (*)] 1,200 mg PO BID tab.er 05/08/17 [Last Taken Unknown] Discharge Medications: Refer to the Discharge Home Medication list for PRN reason. - Orders Services needed: Registered Nurse, Physical Therapy, Occupational Therapy Isolation Type: None - Follow Up Care Current Providers and Referrals: Clay Peña MD [Primary Care Provider] - As per Instructions Ruy Zamora MD [Medical Doctor] - follow up in 1 week (call for an appointment for next week. an order has been put in for you to get a chest xray at the hospital before your appt. if you have questions about this please talk with our office and they will give you instructions. )
--- NOTE | 2017-05-08 14:02 | SOAPPROG ---
SOAP Progress Note Assessment/Plan: Assessment: Patient with persistent right empyema inadequately drained with IR tube CT shows a thick collection in the right chest Afebrile presently/etiology unclear Will need VATS decortication Plan: Arrange VATS decortication/risks and options fully discussed/will discuss with Dr. Msos 04/30/17 14:06 05/02/17 08:46 VS STABLE/ AFEBRILE/ WOUND OK/ SMALL AIR LEAK/ MODERATE CT DRAINAGE/ UO GOOD/ HCT 29/ CHEM OK/ OVERALL STABLE/ CXR WELL EXPANDED PLAN WEAN OFF VENT, CONTINUE CT SUCTION 05/02/17 19:28 Stable tonight, afebrile, minimal air leak, moderate chest tube drainage, alert oriented and fully responsive off ventilator, lab stable 05/08/17 14:01 Afebrile/vital signs stable/alert/wound okay/chest x-ray shows good expansion/ thyroid FNA done / home today follow up next week in the office with chest x-ray and thyroid pathology report Objective: Vital Signs Temp Pulse Resp BP Pulse Ox 36.9 C 74 18 152/80 H 98 05/08/17 10:55 05/08/17 10:55 05/08/17 10:55 05/08/17 10:55 05/08/17 10:55 Microbiology 05/01/17 16:51 Gram Stain - Final Other - Tissue Anaerobic Culture - Final 05/01/17 16:36 Gram Stain - Final Other - Tissue Anaerobic Culture - Final 05/01/17 16:17 Gram Stain - Final Other - Eswab Anaerobic Culture - Final Laboratory Results 05/05/17 03:20 05/04/17 03:34 05/07/17 05/08/17 05/09/17 05:59 05:59 05:59 Intake Total 700 920 Output Total 600 575 75 Balance 100 345 -75 PT 17.6 SEC (12.0-15.0) H 05/02/17 09:07 INR 1.43 (0.83-1.16) H 05/02/17 09:07 ICD10 Worksheet Patient Problems: Problems Problem Status Onset Abnormal liver function test Acute Dyspnea Acute Pleural effusion Acute Chest pain Acute Congestive cardiac failure Acute
--- NOTE | 2017-05-08 17:35 | GDS ---
[f rep st] DISCHARGE SUMMARY DISCHARGE DIAGNOSES: 1. Empyema of uncertain etiology. 2. Cardiac arrest with no residual neurologic deficits. 3. Pancreatic mass status post biopsy. PATHOLOGY: Biopsy of the stomach and esophagus showing some superficial gastritis. Pancreatic biops y showed no evidence of malignant cells, histiocytes. HOSPITAL COURSE: The patient presented on the , with right-sided pleural effusion. Thoracentesi s was performed. This was read cloudy with a low pH. Chest tube was placed. After evaluation of hi s pancreatic mass, the patient underwent a chest tube placement on the . Ultimately, the patient went to the operating room for a VATS, that was complicated by postoperative cardiac arrest secondar y to bleeding. He was rapidly resuscitated. He had a completely benign neurologic recovery. Postop eratively from the on, the patient had chest tubes that were removed on the . He had an inc identally discovered thyroid nodule that was biopsied by IR today. The patient is discharged home wi thout chest tubes, on oxygen. Pradaxa is restarted this afternoon. He has rapid followup. 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 As for the etiology of this pleural effusion , nothing was found. He also had an immunological workup which is unremarkable in terms of the sourc e of pleural effusion. The patient has outpatient followup. /[id number]/MODL
--- NOTE | 2017-05-09 14:30 | ASDISCHSUM ---
Discharge Information Plan Status:Home with Home Health Medically Cleared to Leave:05/07/2017 Discharge Date:05/08/2017 03:05 PM CM D/C Disposition:Home Health Service ADT D/C Disposition:[id number] Projected Discharge Date:05/08/2017 11:00 AM Transportation at D/C:Family Discharge Delay Reason: Follow-Up Date:05/08/2017 11:00 AM Discharge Slot: Final Diagnosis: Placement Information Referral Type:*Home Health Care Services Referral ID:[id number] Provider Name:[facility] [place] Address 1:[address] [place] [address] Address 2: City:[place] Selection Factors: State:[place] Patient Contact Information Contact Name:RAFI Relationship: Address:[address] City:[place] Alternate Phone: State/Zip Code:[place] [address] Email: Financial Information Financial Class:Medicare Primary Plan Desc:MEDICARE INPATIENT Primary Plan Number:[id number] Secondary Plan Desc:[employer] PPO [employer] Secondary Plan Number:[id number] Assessment Information [facility] CM Progress Note CM Note CM Note Notes: 04/23/2017 Case Management Note Met w/pt and this morning during rounds. Pt admitted for pleural effusions. There are currently no PT or OT evals ordered. There are no further case management d/c needs identified at this time. Case Management d/c poc: anticipating independent with follow up as directed. Case Management to follow on daily rounds. Date Signed: 04/23/2017 02:35 PM Electronically Signed By:Sherron Saenz RN [facility] CM Progress Note CM Note CM Note Notes: Spoke w/ANA, anticipate pt will dc home w/support of when medically stable. No therapies ordered, CM available for any changes. DC Plan: Independent Date Signed: 04/26/2017 03:17 PM Electronically Signed By:Norma Nelson RN [facility] CM Progress Note CM Note CM Note Notes: CM spoke w/ ANA Hall regarding d/c POC. The plan remains the same. Pt will most likely d/c independent with supportive when medically stable. No therapies ordered at this time. CM available for changes. Plan: Independent Date Signed: 04/28/2017 03:27 PM Electronically Signed By:BRAD Shi [facility] CM Progress Note CM Note CM Note Notes: Spoke w/ ANA, considers pt independent, moves well but did have procedure today, CM w/f. Date Signed: 04/30/2017 04:30 PM Electronically Signed By:Norma Nelson RN [facility] CM Progress Note CM Note CM Note Notes: Patient had severe chest wall bleeding with removal of chest tube during VATS, requiring brief CPR and massive transfusion. D/C plan has been home independent. This may change in light of recent complications. CM continue to monitor for any d/c needs. Date Signed: 05/02/2017 03:30 PM Electronically Signed By:Tamika Elmore LCSW [facility] CM Progress Note CM Note CM Note Notes: PT recommending home care. Spoke with pt and his family and provided blue book for [facility] as they live in [place]. Pt is hoping he will continue to improve and not need anything at home. He is transferring to med surg when a bed is available. Date Signed: 05/03/2017 04:54 PM Electronically Signed By:FRANCIS Hernández [facility] CM Progress Note CM Note CM Note Notes: 05/04/2017 Case Management Note Met w/pt, Bekah [phone] and both sons to discuss need for home care. Pt is agreeable to home care for a short time. Faxed referral to [facility] after discussing options with family. Case Management d/c poc: [employer] PT pending acceptance by agency. Case Management to follow. Date Signed: 05/04/2017 10:21 AM Electronically Signed By:Sherron Saenz RN [facility] CM Progress Note CM Note CM Note Notes: 05/05/2017 Case Management Note Met w/pt during rounds today as team discussed his case. Faxed updates to [facility] via [place]. Case Management d/c poc: [facility] RN OT pending acceptance. Case Management to follow. Date Signed: 05/05/2017 12:29 PM Electronically Signed By:Sherron Saenz RN [facility] CM Progress Note CM Note CM Note Notes: Pts case reviewed in tx rounds. The plan remains the same. Pt will d/c with [facility], RN, PT, OT when medically stable. CM to notify [place] from [facility] from medically stable to d/c. CM available for changes. Plan: [facility], PT, OT, RN Date Signed: 05/07/2017 02:51 PM Electronically Signed By:BRAD Shi Case Management Discharge Plan Note Case Management Discharge Discharge Order Complete? Answers: Yes Patient to Obtain Answers: via [facility] Transportation Arranged Answers: Family/Friends EMTALA Complete Answers: No Case Management Transport Answers: Yes Form Complete Faxed Final Orders Answers: Yes Agency/Facility Transfer Answers: Yes Report Printed & Faxed to Receiving Agency Family Notified Answers: Yes Discharge Comments Notes: Pts case discussed in morning rounds. Pt is being discharged today. CM confirmed w/ pt and son regarding d/c plans. CM notified Florence at [facility] of pts discharge. Florence will contact pt directly to schedule an appointment. DC orders sent to [facility]. CM available for changes. Plan: [facility]; PT, OT, RN Date Signed: 05/08/2017 02:12 PM Electronically Signed By:BRAD Shi Intervention Information
== END 2017-05-08 15:05 | disposition home health service (06) | DRG 163 ==
LOC: F2W 17:47 → F3E 04-23 15:29 → F2N 05-01 17:33 → F2W 05-03 22:29
PROVIDERS: ADMIT Student in an Organized Health Care Education/Training Program; ATTEND Internal Medicine
PROC: 0B9N30Z Drainage of Right Pleura with Drainage Device, Percutaneous Approach (ICD-10-PCS; 2017-04-24)
PROC: 0FBG4ZX Excision of Pancreas, Percutaneous Endoscopic Approach, Diagnostic (ICD-10-PCS; 2017-04-24)
PROC: 0F998ZZ Drainage of Common Bile Duct, Via Natural or Artificial Opening Endoscopic (ICD-10-PCS; 2017-04-24)
PROC: 0DB48ZX Excision of Esophagogastric Junction, Via Natural or Artificial Opening Endoscopic, Diagnostic (ICD-10-PCS; 2017-04-24)
PROC: 0DB78ZX Excision of Stomach, Pylorus, Via Natural or Artificial Opening Endoscopic, Diagnostic (ICD-10-PCS; 2017-04-24)
PROC: 0B9N30Z Drainage of Right Pleura with Drainage Device, Percutaneous Approach (ICD-10-PCS; 2017-04-29)
PROC: 5A12012 Performance of Cardiac Output, Single, Manual (ICD-10-PCS; 2017-05-01)
PROC: 30233K1 Transfusion of Nonautologous Frozen Plasma into Peripheral Vein, Percutaneous Approach (ICD-10-PCS; 2017-05-01)
PROC: 30233N1 Transfusion of Nonautologous Red Blood Cells into Peripheral Vein, Percutaneous Approach (ICD-10-PCS; 2017-05-01)
PROC: 30233R1 Transfusion of Nonautologous Platelets into Peripheral Vein, Percutaneous Approach (ICD-10-PCS; 2017-05-01)
PROC: 0W380ZZ Control Bleeding in Chest Wall, Open Approach (ICD-10-PCS; principal; 2017-05-01 13:30)
PROC: 3E0L4GC Introduction of Other Therapeutic Substance into Pleural Cavity, Percutaneous Endoscopic Approach (ICD-10-PCS; 2017-05-01 13:30)
PROC: 0BJQ4ZZ Inspection of Pleura, Percutaneous Endoscopic Approach (ICD-10-PCS; 2017-05-01 13:30)
PROC: 0W9900Z Drainage of Right Pleural Cavity with Drainage Device, Open Approach (ICD-10-PCS; 2017-05-01 13:30)
DX: J86.9 Pyothorax without fistula (principal); J96.01 Acute respiratory failure with hypoxia; I97.121 Postprocedural cardiac arrest following other surgery; K86.2 Cyst of pancreas; D62 Acute posthemorrhagic anemia; E04.1 Nontoxic single thyroid nodule; I48.91 Unspecified atrial fibrillation; I10 Essential (primary) hypertension; R94.5 Abnormal results of liver function studies; I95.9 Hypotension, unspecified; Z79.01 Long term (current) use of anticoagulants; Z95.0 Presence of cardiac pacemaker
CPT/HCPCS: 82947-QW; 86301-90; 97116-GP; 97161-GP; 97165-GO; 97530-GO; 97530-GP; 97535-GO; G8978-GP-CJ; G8979-GP-CI; G8987-GO-CK; G8988-GO-CI; J0171; J0690; J1100; J1170; J1335; J1610; J1940; J1956; J2250; J2310; J2370; J2405; J2704; J2710; J3010; P9016; P9017; P9035; P9041; Q9961; Q9967

== ENCOUNTER → 2017-05-14 | Outpatient (CLI) | payer OTHER | LOC: FIMAGING 13:00 | PROVIDERS: ATTEND Physician Assistant | DX: Z13.83 Encounter for screening for respiratory disorder NEC (principal); J81.0 Acute pulmonary edema; I51.7 Cardiomegaly ==

== ENCOUNTER → 2017-07-22 | Outpatient (CLI) | payer OTHER ==
[~2017-07-22] MED LIST: IOPAMIDOL (ISOVUE-300) 100 ML BTL ONE
== END ==
LOC: FIMAGING 09:53
PROVIDERS: ATTEND Internal Medicine Gastroenterology
DX: K86.2 Cyst of pancreas (principal); R91.1 Solitary pulmonary nodule; K76.9 Liver disease, unspecified; K57.30 Diverticulosis of large intestine without perforation or abscess without bleeding
CPT/HCPCS: 74177; Q9967

== ENCOUNTER → 2018-02-05 | Outpatient (CLI) | payer OTHER | LOC: FIMAGING 10:50 | PROVIDERS: ATTEND Internal Medicine Gastroenterology | DX: K86.2 Cyst of pancreas (principal); K76.89 Other specified diseases of liver; D18.03 Hemangioma of intra-abdominal structures; R91.1 Solitary pulmonary nodule; I70.0 Atherosclerosis of aorta; M51.9 Unspecified thoracic, thoracolumbar and lumbosacral intervertebral disc disorder | CPT/HCPCS: 74160; Q9967; 82565-PO ==